=== PATIENT | female | born 1975 | race Caucasian/White ===

== ENCOUNTER 2020-09-13 16:58 | Emergency (ER) | payer SELFPAY ==
[2020-09-13 17:04] VITALS: BP 143/83; PULSE 101; RESP 16; TEMP 36.9; O2SAT 100
--- NOTE | 2020-09-13 17:10 | ED.URI ---
HPI - URI/Sore Throat General Chief Complaint: Upper Respiratory Infection Stated Complaint: cough swollen throat aches Time Seen by Provider: 09/13/20 17:11 Source: patient and RN notes reviewed History of Present Illness HPI Narrative: Patient is a 45-year-old female who presents to the urgent care with complaints of a sore throat since Wednesday. Patient states her symptoms have exacerbated with body aches, swollen tonsils, headache and left ear pain. States that she has had 2 rapid Covid's this week due to working in the [employer] and both were negative. Patient denies of any known fever, nausea, vomiting. States that she has been using ibuprofen and Chloraseptic spray as well as taking an old dose of doxycycline that she had at home. No other acute complaints. No acute distress noted. Patient aware of the plan of care. Some parts of this dictation were generated by voice recognition software and may contain typographical and/or grammatical inaccuracies. Related Data Home Medications Medication Instructions Recorded Confirmed cetirizine [Zyrtec] 10 mg PO DAILY 09/13/20 09/13/20 citalopram 40 mg PO DAILY 09/13/20 09/13/20 Allergies Allergy/AdvReac Type Severity Reaction Status Date / Time Cephalosporins Allergy Unknown Unknown Verified 09/13/20 17:12 levofloxacin Allergy Unknown Chest Pain Verified 09/13/20 17:12 Penicillins Allergy Unknown Unknown Verified 09/13/20 17:12 Review of Systems Review of Systems: Narrative: CONSTITUTIONAL: Reports of fever, chills EYES: Denies visual changes, redness, or discharge. ENT: Reports of severe sore throat and swollen tonsils CARDIOVASCULAR: Denies chest pain, palpitations, or edema. RESPIRATORY: Denies cough or dyspnea. GASTROINTESTINAL: Denies abdominal pain, nausea, vomiting, or diarrhea. GENITOURINARY: Denies dysuria or hematuria. SKIN: Denies rash or itching. MUSCULOSKELETAL: Denies back pain, joint pain. Reports of body aches NEUROLOGIC: Reports of headache All other systems reviewed are negative, except as documented in HPI. PMFSH Comments At the time of my signature, I reviewed and agree with the nursing past medical, surgical, social, and family history. There is no relevant family history pertinent to the patient complaint. Exam Narrative: Exam Narrative: GENERAL: This is a well-nourished, well-developed patient, in no apparent distress. HEAD: normocephalic, atraumatic. EYES: PERRL. Sclera clear/white. Vision is grossly intact. EARS: External ears normal, auditory canals clear and without drainage, TMs normal without perforation. Hearing grossly intact. NOSE: External nose normal with no obvious nasal discharge, nares without redness, no rhinorrhea. THROAT: Mucous membranes moist, moderate erythema noted to posterior oropharynx with moderate bilateral tonsillar edema with bilateral exudate. Moderate postnasal drainage. NECK: Neck supple, moderate tender bilateral submandibular lymphadenopathy CARDIOVASCULAR: Regular rate and rhythm without murmurs, gallops, or rubs. RESPIRATORY: Clear to auscultation. Breath sounds equal bilaterally. No wheezes, rales, or rhonchi. SKIN: warm, intact with no suspicious lesions or rash, good texture and turgor. NEURO: awake, alert, and oriented to person, place and time. There were no obvious focal neurologic abnormalities. EXTREMITIES: No clubbing, cyanosis, or edema. Course Vital Signs Vital signs: Vital Signs Temperature 98.5 F 09/13/20 17:04 Pulse Rate 101 H 09/13/20 17:04 Respiratory Rate 16 09/13/20 17:04 Blood Pressure 143/83 H 09/13/20 17:04 Pulse Oximetry 100 09/13/20 17:04 Temperature 98.5 F 09/13/20 17:13 Pulse Rate 101 H 09/13/20 17:13 Respiratory Rate 16 09/13/20 17:13 Blood Pressure 143/83 H 09/13/20 17:13 Pulse Oximetry 100 09/13/20 17:13 Reviewed-patient is informed that they may have pre-hypertension or hypertension based on a blood pressure reading in the department. I rec
[2020-09-13 17:13] VITALS: BP 143/83; PULSE 101; RESP 16; TEMP 36.9; O2SAT 100
== END 2020-09-13 17:35 | disposition home or self-care (01) ==
PROVIDERS: Emergency Provider Nurse Practitioner Family; PCP Internal Medicine
DX: J02.0 Streptococcal pharyngitis (principal); Z95.2 Presence of prosthetic heart valve; J45.909 Unspecified asthma, uncomplicated; F41.9 Anxiety disorder, unspecified
CPT/HCPCS: 87880; 99213; G0463

== ENCOUNTER 2022-02-20 15:01 | Emergency (ER) | payer SELFPAY ==
[2022-02-20 15:07] VITALS: BP 133/66; PULSE 88; RESP 18; TEMP 36.9; O2SAT 99
--- NOTE | 2022-02-20 15:40 | ED.URI ---
HPI - URI/Sore Throat General Chief Complaint: Upper Respiratory Infection Stated Complaint: Sore Throat Time Seen by Provider: 02/20/22 15:25 Source: patient, RN notes reviewed and old records reviewed Mode of arrival: ambulatory Limitations: no limitations History of Present Illness HPI Narrative: 46-year-old female who presents to [facility] with complaints of2-3 days of recurrent sore throat, cough, nasal congestion,headaches, some body aches with no known fevers. Patient reports that she does have history of strep throat. Patient states that she has noted her tonsils to be red and swollen and with increase pain with swallowing, has taken Tylenol and Ibuprofen for her discomfort.Patient reports that she has had COVID vaccinations and also had flu hot this season. MD elicited complaint: cough, sore throat, rhinorrhea and nasal congestion Pertinent past history: pneumonia, sinusitis, asthma and other (strep throat) Onset (ago): day(s) (2-3) Consistency: progressively worsening Severity: moderate Pain scale (0-10): 6 Description of mucous: clear Able to tolerate fluids by mouth: Yes Exacerbating factors: swallowing Treatments prior to arrival: acetaminophen and ibuprofen Related Data Allergies Allergy/AdvReac Type Severity Reaction Status Date / Time Cephalosporins Allergy Unknown Unknown Verified 02/20/22 15:23 levofloxacin Allergy Unknown Chest Pain Verified 02/20/22 15:23 Penicillins Allergy Unknown Unknown Verified 02/20/22 15:23 Review of Systems Review of Systems: CONSTITUTIONAL: Denies fever, chills, or sweats. EYES: Denies visual changes, redness, or discharge. ENT: Positive for rhinorrhea, congestion, positive for sore throat, no otalgia. CARDIOVASCULAR: Denies chest pain, palpitations, or edema. RESPIRATORY:Positive for cough denies dyspnea. GASTROINTESTINAL: Denies abdominal pain, nausea, vomiting, or diarrhea. GENITOURINARY: Denies dysuria or hematuria. SKIN: Denies rash or itching. MUSCULOSKELETAL: Denies back pain, joint pain, or myalgia. NEUROLOGIC: Positive for headache,no numbness, or weakness. PSYCHIATRIC: Denies anxiety or depression. All systems reviewed & are unremarkable except as noted in HPI and below PMFSH Past Medical History Medical History (Updated 02/22/22 @ 22:22 by Farida Aden NP) Asthma Bronchitis Intraductal papilloma of right breast excision Pneumonia Sinusitis Surgical History Surgical History (Updated 02/22/22 @ 22:23 by Farida Aden NP) H/O left knee surgery History of aortic valve replacement Hx of right knee surgery Previous section Social History Social History (Updated 02/22/22 @ 22:23 by Farida Aden NP) Smoking packs per day: 1 Smoking cigarettes per day: 20.0 Years smoked: 10 Smoking pack-years: 10.00 Smoking status: Current every day smoker Alcohol intake: current Alcohol use details: social Substance use type: does not use Gender identity (if verbalized by the patient): Female Comments At time of signature, agree with nursing past medical, surgical, social and family history. There is no relevant family history pertinent to the presenting complaint Exam Narrative: GENERAL: Well-appearing, well-nourished, and in no acute distress. HEAD: Normocephalic, atraumatic. EYES: PERRLA and EOMI. ENT: Nares red with clear rhinorrhea no epistaxis. Mucous membranes moist. TMs normal with good light reflex, throat red with tonsils swollen and red with uvula swollen but midline NECK: Supple. Lymphadenopathy CHEST: Clear to auscultation. No respiratory distress. SaO2 99% on room air no tachypnea. HEART: Regular rate and rhythm. No murmur heard. Normal peripheral pulses. ABDOMEN: Soft, nontender, nondistended, normal active bowel sounds. EXTREMITIES: Normal range of motion. No edema. SKIN: Warm, dry, no rash. NEURO: No focal deficits. Alert and oriented x3. Course Course Level of Care: Express Care Visit Vital Signs Keily
== END 2022-02-20 16:05 | disposition home or self-care (01) ==
PROVIDERS: Emergency Provider Registered Nurse; PCP Internal Medicine
DX: J02.0 Streptococcal pharyngitis (principal); F17.210 Nicotine dependence, cigarettes, uncomplicated
CPT/HCPCS: 87804; 87880; 99213; G0463

== ENCOUNTER 2022-03-06 19:15 | Emergency (ER) | payer SELFPAY ==
--- NOTE | ~2022-03-06 | XR_ITS ---
EXAMINATION: XR wrist RT min 3V DATE: 03/06/2022 19:51 INDICATION: Right wrist pain. Fall. TECHNIQUE: 4 views of right wrist were obtained. COMPARISON: None. FINDINGS: Bone alignment is normal. No fracture. 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 IMPRESSION: 1. No fracture. Reviewed, dictated and finalized at location A. IMPRESSION: 1. No fracture.
[2022-03-06 19:20] VITALS: BP 138/84; PULSE 87; RESP 20; TEMP 37.1; O2SAT 100
--- NOTE | 2022-03-06 20:17 | ED.UPPEXIN ---
HPI - Extremity Injury (Upper) General Chief Complaint: Extremity Injury, Upper Stated Complaint: right wrist injury Time Seen by Provider: 03/06/22 20:10 Source: patient, RN notes reviewed and old records reviewed Mode of arrival: ambulatory Limitations: no limitations History of Present Illness HPI narrative: 46 year old female who presents to [facility] care with complaint os hitting her right wrist about a week ago and then yesterday she fell down 4 carpeted steps hitting her right wrist on the wall and step. She voices pain to the ulnar dorsal aspect of her right wrist with some swelling noted. Patient reports that she has been applying ice and has taken some Ibuprofen for her discomfort. She states that her pain is 7/10 is sharp and aching. Patient is right hand dominant. MD complaint: injury to: right and wrist Onset (ago): day(s) (injury yesterday) Other Extremity Injury: Right: wrist (dorsal ulnar aspect) Other injuries: none Handedness: right Place: home Severity: moderate Severity scale (1-10): 7 Context: fall and direct blow Associated symptoms: denies other symptoms Treatments prior to arrival: cold therapy and NSAIDS Related Data Home Medications Medication Instructions Recorded Confirmed citalopram [Celexa] 40 mg PO DAILY 03/06/22 03/06/22 Allergies Allergy/AdvReac Type Severity Reaction Status Date / Time Cephalosporins Allergy Unknown Unknown Verified 03/06/22 19:27 levofloxacin Allergy Unknown Chest Pain Verified 03/06/22 19:27 Penicillins Allergy Unknown Unknown Verified 03/06/22 19:27 Review of Systems Review of Systems: CONSTITUTIONAL: Denies fever, chills, or sweats. EYES: Denies visual changes, redness, or discharge. ENT: Denies rhinorrhea, congestion, sore throat, or otalgia. CARDIOVASCULAR: Denies chest pain, palpitations, or edema. RESPIRATORY: Denies cough or dyspnea. GASTROINTESTINAL: Denies abdominal pain, nausea, vomiting, or diarrhea. GENITOURINARY: Denies dysuria or hematuria. SKIN: Denies rash or itching. MUSCULOSKELETAL: Denies back pain,positive for right wrist pain, or myalgia. NEUROLOGIC: Denies headache, numbness, or weakness. PSYCHIATRIC:Positive for history of anxiety or depression. All systems reviewed & are unremarkable except as noted in HPI and below [facility] Past Medical History Medical History Asthma Bronchitis Intraductal papilloma of right breast excision Pneumonia Sinusitis Surgical History Surgical History H/O left knee surgery History of aortic valve replacement Hx of right knee surgery Previous section Social History Social History Smoking packs per day: 1 Smoking cigarettes per day: 20.0 Years smoked: 10 Smoking pack-years: 10.00 Smoking status: Current every day smoker Alcohol intake: current Alcohol use details: social Substance use type: does not use Gender identity (if verbalized by the patient): Female Comments At time of signature agree with nursing documentation of past medical, surgical, sociual and family history. There is no persistent family history relevant to presenting complaint Exam Narrative: GENERAL: Well-appearing, well-nourished, and in no acute distress. HEAD: Normocephalic, atraumatic. EYES: PERRLA and EOMI. ENT: Nares clear, no rhinorrhea or epistaxis. Mucous membranes moist.TM's normal with good light reflex, throat pink with no tonsil swelling. NECK: Supple.no lymphadenopathy CHEST: Clear to auscultation. No respiratory distress.no tachypnea SAO2 100% on room air. HEART: Regular rate and rhythm. No murmur heard. Normal peripheral pulses. ABDOMEN: Soft, nontender, nondistended, normal active bowel sounds. EXTREMITIES: Normal range of motion mild edema to dorsal ulnar aspect of right wrist, circulation and sensation intact to right hand and wrist,
== END 2022-03-06 20:27 | disposition home or self-care (01) ==
PROVIDERS: Emergency Provider Registered Nurse; PCP Internal Medicine
DX: S63.501A Unspecified sprain of right wrist, initial encounter (principal); S66.911A Strain of unspecified muscle, fascia and tendon at wrist and hand level, right hand, initial encounter; W10.9XXA Fall (on) (from) unspecified stairs and steps, initial encounter; J45.909 Unspecified asthma, uncomplicated; Z95.2 Presence of prosthetic heart valve; F17.210 Nicotine dependence, cigarettes, uncomplicated
CPT/HCPCS: 73110; 99213; G0463

== ENCOUNTER 2022-08-03 10:31 | Emergency (ER) | payer SELFPAY ==
[2022-08-03 10:36] VITALS: BP 141/92; PULSE 86; RESP 14; TEMP 36.8; O2SAT 100
--- NOTE | 2022-08-03 10:45 | ED.SKABFB ---
HPI - Skin/Abscess/Foreign Bdy General Chief complaint: Skin/Abscess/Foreign Body Stated complaint: recvurrent breast abcess Time Seen by Provider: 08/03/22 10:35 Source: patient and RN notes reviewed History of Present Illness HPI narrative: Patient is a 46-year-old female presents the urgent care with complaints of recurrent abscess in the right breast. Patient states its been at least 1 year and this episode started on Wednesday. Patient states that she has had an MRI, ultrasounds and biopsies that have all been clear. However she states that her mom of endometrial cancer and her cousin had breast cancer. Patient has not been tested for the BRCA gene. States that she does plan to call her RESIDENT CARE COORDINATOR/nurse practitioner and asked for referral to a breast specialist. Patient states that she has had no fevers however she has been taking Tylenol and ibuprofen. No other acute complaints. No acute distress noted. Patient read the plan of care. Some parts of this dictation were generated by voice recognition software and may contain typographical and/or grammatical inaccuracies. Related Data Home Medications Medication Instructions Recorded Confirmed cetirizine 10 mg tablet (Zyrtec) 10 mg PO DAILY 08/03/22 08/03/22 Allergies Allergy/AdvReac Type Severity Reaction Status Date / Time Cephalosporins Allergy Unknown Vomiting Verified 08/03/22 10:45 levofloxacin Allergy Unknown Chest Pain Verified 08/03/22 10:45 Penicillins Allergy Unknown Hives Verified 08/03/22 10:45 Review of Systems Review of Systems: CONSTITUTIONAL: Denies fever, chills, or sweats. EYES: Denies visual changes, redness, or discharge. ENT: Denies rhinorrhea, congestion, sore throat, or otalgia. CARDIOVASCULAR: Denies chest pain, palpitations, or edema. RESPIRATORY: Denies cough or dyspnea. GASTROINTESTINAL: Denies abdominal pain, nausea, vomiting, or diarrhea. GENITOURINARY: Denies dysuria or hematuria. SKIN: Reports of abscess to the right breast MUSCULOSKELETAL: Denies back pain, joint pain, or myalgia. NEUROLOGIC: Denies headache, numbness, or weakness. All other systems reviewed are negative, except as documented in HPI. [facility] Past Medical History Medical History Asthma Bronchitis Intraductal papilloma of right breast excision Pneumonia Sinusitis Surgical History Surgical History H/O left knee surgery History of aortic valve replacement Hx of right knee surgery Previous section Social History Social History Smoking packs per day: 1 Smoking cigarettes per day: 20.0 Years smoked: 10 Smoking pack-years: 10.00 Smoking status: Current every day smoker Alcohol intake: current Alcohol use details: social Substance use type: does not use Gender identity (if verbalized by the patient): Female Comments At the time of my signature, I reviewed and agree with the nursing past medical, surgical, social, and family history. There is no relevant family history pertinent to the patient complaint. Exam Narrative: GENERAL: This is a well-nourished, well-developed patient, in no apparent distress. HEAD: normocephalic, atraumatic. EYES: PERRL. Sclera clear/white. Vision is grossly intact. EARS: External ears normal NOSE: External nose normal with no obvious nasal discharge, nares without redness, no rhinorrhea. THROAT: Mucous membranes moist NECK: Neck supple SKIN: 8 x 5cm erythema surrounding a firm 3 cm abscess at 7:00 to the right nipple on the lateral aspect., Tender without notable drainage NEURO: awake, alert, and oriented to person, place and time. There were no obvious focal neurologic abnormalities. EXTREMITIES: No clubbing, cyanosis, or edema. Course Course Level of Care: Express Care Visit Vital Signs Vital signs: Vital Signs Temperature 98.2 F
== END 2022-08-03 11:02 | disposition home or self-care (01) ==
PROVIDERS: Emergency Provider Nurse Practitioner Family; PCP Internal Medicine
DX: N61.1 Abscess of the breast and nipple (principal); F17.210 Nicotine dependence, cigarettes, uncomplicated; J45.909 Unspecified asthma, uncomplicated; Z95.2 Presence of prosthetic heart valve
CPT/HCPCS: 99213; G0463

== ENCOUNTER 2022-10-12 08:24 | Emergency (ER) | payer SELFPAY ==
[2022-10-12 08:28] VITALS: BP 119/79; PULSE 80; RESP 20; TEMP 36.9; O2SAT 100
--- NOTE | 2022-10-12 08:54 | ED.URI ---
HPI - URI/Sore Throat General Chief Complaint: Upper Respiratory Infection Stated Complaint: cold flu Time Seen by Provider: 10/12/22 08:50 Source: patient, RN notes reviewed and old records reviewed Mode of arrival: ambulatory Limitations: no limitations History of Present Illness HPI Narrative: 47-year-old female who presents to Express Care with complaints of cough with congestion. body aches,headache and chills since yesterday and also sore throat. Patient states she has taken some cold and cough medications OTC and also some ibuprofen for her symptoms. Patient has respiratory congestion which is dry and productive and has noted wheezing. Patient does have inhaler at home but has not used for her symptoms. patient states that she needs work note. MD elicited complaint: cough, sore throat and other (Body ache, headache, and chills) Pertinent past history: pneumonia, asthma and other (tobacco use) Onset (ago): day(s) (1) Pain scale (0-10): 8 Able to tolerate fluids by mouth: Yes Treatments prior to arrival: ibuprofen and cold medicine Related Data Home Medications Medication Instructions Recorded Confirmed cetirizine 10 mg tablet (Zyrtec) 10 mg PO DAILY 08/03/22 10/12/22 Allergies Allergy/AdvReac Type Severity Reaction Status Date / Time Penicillins Allergy Unknown Unknown Verified 10/12/22 08:47 Cephalosporins AdvReac Unknown Vomiting Verified 10/12/22 08:47 levofloxacin AdvReac Unknown Chest Pain Verified 10/12/22 08:47 Review of Systems Review of Systems: CONSTITUTIONAL: Reports malaise, chills, sweats, no fever. EYES: Denies visual changes, redness, or discharge. ENT: Reports rhinorrhea, congestion, sinus pain, no otalgia, positive sore throat. CARDIOVASCULAR: Denies chest pain, palpitations, or edema. RESPIRATORY: Reports cough which is dry and productive.? Denies dyspnea. GASTROINTESTINAL: Denies abdominal pain, nausea, vomiting, diarrhea SKIN: Denies rash or itching. MUSCULOSKELETAL: Reports myalgia. NEUROLOGIC: Reports headache. All systems reviewed & are unremarkable except as noted in HPI and below PMFSH Past Medical History Medical History Asthma Bronchitis Intraductal papilloma of right breast excision Pneumonia Sinusitis Surgical History Surgical History H/O left knee surgery History of aortic valve replacement Hx of right knee surgery Previous section Social History Social History Smoking packs per day: 1 Smoking cigarettes per day: 20.0 Years smoked: 10 Smoking pack-years: 10.00 Smoking status: Current every day smoker Alcohol intake: current Alcohol use details: social Substance use type: does not use Gender identity (if verbalized by the patient): Female Comments At time of signature, agree with nursing past medical, surgical, social and family history. There is no relevant family history pertinent to the presenting complaint Exam Narrative: GENERAL: Well-appearing, well-nourished, and in no acute distress. HEAD: Normocephalic EYES: PERRLA, conjunctivae clear ENT: Nares clear, turbinates edematous and erythematous, clear discharge. Mucous membranes moist. TM pearly tate with dull light reflex bilaterally; no tragal tenderness. Oropharynx erythematous without lesions. Tonsils enlarged and without exudate, no drooling, no hoarseness, no trismus, uvula midline.post nasal drainage present NECK: Supple. lymphadenopathy CHEST: Scattered wheezing, breath sounds equal.scattered wheezing,no rhonchi, rales, or stridor. No respiratory distress, speaks in full sentences.brky and loose sounding cough noted with SAO2 100% on room air HEART: Regular rate and rhythm. No murmur heard. SKIN: Warm, dry, no rash. NEURO: Alert and oriented x3. PSYCH: Normal mood and affect Cou
== END 2022-10-12 09:10 | disposition home or self-care (01) ==
PROVIDERS: Emergency Provider Registered Nurse; PCP Internal Medicine
DX: J40 Bronchitis, not specified as acute or chronic (principal); J06.9 Acute upper respiratory infection, unspecified; F17.210 Nicotine dependence, cigarettes, uncomplicated; J45.909 Unspecified asthma, uncomplicated; Z95.2 Presence of prosthetic heart valve
CPT/HCPCS: 87804; 99213; G0463

== ENCOUNTER 2023-01-19 13:44 | Emergency (ER) | payer SELFPAY ==
--- NOTE | ~2023-01-19 | XR_ITS ---
XR chest 2V 01/19/2023 14:48 Indication: Cough and congestion Procedure: 2 view chest Comparison: 07/30/2019 Findings: Status post median sternotomy for CABG. Mild cardiomegaly. No focal air space disease, pulm onary edema, pleural effusion or suspected pneumothorax. Impression: 1: No acute cardiopulmonary disease. Reviewed, dictated and finalized at location A. Impression: 1: No acute cardiopulmonary disease.
[2023-01-19 13:52] VITALS: BP 106/66; PULSE 87; RESP 16; TEMP 36.8; O2SAT 99
[2023-01-19] MEDS: methylPREDNISolone SOD SUCC 125 MG VIAL IM (14:51)
[2023-01-19] MEDS: ALBUTEROL SULFATE NEB 2.5 MG/3 ML INH INHALATION (14:52)
[2023-01-19] MEDS: IPRATROPIUM BR 0.02% INH SOLN 0.5 MG/2.5 ML VIAL INHALATION (14:52)
--- NOTE | 2023-01-19 15:00 | ED.GENADULT ---
HPI - General Adult General Chief complaint: Upper Respiratory Infection Stated complaint: Chest Congestion/Cough Source: patient Mode of arrival: ambulatory Limitations: no limitations History of Present Illness HPI narrative: PATIENT PRESENTS FOR EVALUATION OF RESPIRATORY SYMPTOMS FOR LAST 2-3 DAYS. SYMPTOMS INCLUDE PRODUCTIVE COUGH OF YELLOW SPUTUM, DYSPNEA ON EXERTION AND WHEEZING. SHE REPORTS A BURNING SENSATION IN HER CHEST. SHE HAS AN UNDERLYING HISTORY OF ASTHMA. SHE SMOKES 1 PPD. NO NAUSEA, VOMITING OR DIARRHEA. SHE IS NOT TAKING ANY MEDICATION TO ASSIST WITH HER SYMPTOMS. SHE STATES SHE HAS A HX OF RECURRENT BRONCHITIS. Related Data Home Medications Medication Instructions Recorded Confirmed cetirizine 10 mg tablet (Zyrtec) 10 mg PO DAILY 08/03/22 10/12/22 Allergies Allergy/AdvReac Type Severity Reaction Status Date / Time Penicillins Allergy Unknown Unknown Verified 10/12/22 08:47 Cephalosporins AdvReac Unknown Vomiting Verified 10/12/22 08:47 levofloxacin AdvReac Unknown Chest Pain Verified 10/12/22 08:47 Review of Systems Review of Systems: CONSTITUTIONAL: DENIES FEVER, CHILLS, OR SWEATS. EYES: DENIES VISUAL CHANGES, REDNESS, OR DISCHARGE. ENT: DENIES RHINORRHEA, CONGESTION, SORE THROAT, OR OTALGIA. CARDIOVASCULAR: DENIES CHEST PAIN, PALPITATIONS, OR EDEMA. RESPIRATORY: REPORTS COUGH, WHEEZING, [place]IN[place]G AND BURNING SENSATION IN HER CHEST GASTROINTESTINAL: DENIES ABDOMINAL PAIN, NAUSEA, VOMITING, OR DIARRHEA. GENITOURINARY: DENIES DYSURIA OR HEMATURIA. SKIN: DENIES RASH OR ITCHING. MUSCULOSKELETAL: DENIES BACK PAIN, JOINT PAIN, OR MYALGIA. NEUROLOGIC: DENIES HEADACHE, NUMBNESS, DIZZINESS, OR WEAKNESS. PSYCHIATRIC: DENIES ANXIETY OR DEPRESSION. [facility] Past Medical History Medical History Asthma Bronchitis Intraductal papilloma of right breast excision Pneumonia Sinusitis Surgical History Surgical History H/O left knee surgery History of aortic valve replacement Hx of right knee surgery Previous section Family History Family History (Updated 01/19/23 @ 15:07 by SHAYY Dave, ROB) Mother Family history non-contributory Social History Social History Smoking packs per day: 1 Smoking cigarettes per day: 20.0 Years smoked: 10 Smoking pack-years: 10.00 Smoking status: Current every day smoker Alcohol intake: current Alcohol use details: social Substance use type: does not use Gender identity (if verbalized by the patient): Female Exam Narrative: GENERAL: WELL-APPEARING, WELL-NOURISHED, AND IN NO ACUTE DISTRESS. HEAD: NORMOCEPHALIC, ATRAUMATIC. EYES: PERRLA AND EOMI. ENT: NARES CLEAR, NO RHINORRHEA OR EPISTAXIS. MUCOUS MEMBRANES MOIST. OROPHARYNX WITHOUT TONSILLAR HYPERTROPHY EXUDATE OR OTHER LESIONS. BILATERAL TMS PEARLY [place] NONBULGING NECK: SUPPLE. NO ADENOPATHY OR MASSES. NO CAROTID BRUITS OR JVD CHEST: DIFFUSE INSPIRATORY AND EXPIRATORY WHEEZING BILATERALLY IN POSTERIOR LUNG OH. COUGH PRESENT ON EXAM. HEART: REGULAR RATE AND RHYTHM. NO MURMUR HEARD. NORMAL PERIPHERAL PULSES. ABDOMEN: SOFT, NONTENDER, NONDISTENDED, NORMAL ACTIVE BOWEL SOUNDS. EXTREMITIES: NORMAL RANGE OF MOTION. NO EDEMA. SKIN: WARM, DRY, NO RASH. NEURO: NO FOCAL DEFICITS. ALERT AND ORIENTED X3. PSYCH: NORMAL MOOD AND AFFECT. Course Course Emergency Course: THIS IS A 47-YEAR-OLD FEMALE WHO PRESENTED FOR EVALUATION OF RESPIRATORY SYMPTOMS. COVID AND INFLUENZA WERE NEGATIVE. CHEST X-RAY NORMAL. EXAM CONSISTENT WITH ASTHMA EXACERBATION SECONDARY TO VIRAL URI. GIVEN SOLU-MEDROL AND DUONEB WHILE HERE. WILL TREAT WITH PREDNISONE. AVOID SMOKING. INCREASE HYDRATION. FOLLOW UP WITH PRIMARY PROVIDER. GO TO THE ER FOR WORSENING SYMPTOMS. PATIENT IN AGREEMENT WITH PLAN OF CARE. Level of Care: [facility]
[2023-01-19 15:17] VITALS: PULSE 79; RESP 16; O2SAT 98
== END 2023-01-19 15:35 | disposition home or self-care (01) ==
PROVIDERS: Emergency Provider Nurse Practitioner; PCP Internal Medicine
DX: J06.9 Acute upper respiratory infection, unspecified (principal); J45.901 Unspecified asthma with (acute) exacerbation; F17.210 Nicotine dependence, cigarettes, uncomplicated
CPT/HCPCS: 71046; 87426; 87804; 94640; 96372; 99213; C9803; G0463; J2930

== ENCOUNTER 2023-01-27 09:27 | Emergency (ER) | payer SELFPAY ==
[2023-01-27 09:30] VITALS: BP 119/80; PULSE 93; RESP 18; TEMP 36.1; O2SAT 99
--- NOTE | 2023-01-27 09:34 | ED.URI ---
HPI - URI/Sore Throat General Chief Complaint: Upper Respiratory Infection <Lyssa Rivers APRN - Last Filed: 01/28/23 07:49> Stated Complaint: cough congestion <Lyssa Rivers APRN - Last Filed: 01/28/23 07:49> Time Seen by Provider: 01/27/23 09:34 <Lyssa Rivers APRN - Last Filed: 01/28/23 07:49> Source: patient, RN notes reviewed and old records reviewed <Lyssa Rivers APRN - Last Filed: 01/28/23 07:49> Mode of arrival: ambulatory <Lyssa Rivers APRN - Last Filed: 01/28/23 07:49> Limitations: no limitations <Lyssa Rivers APRN - Last Filed: 01/28/23 07:49> History of Present Illness HPI Narrative: 47-year-old female presents to the [facility] with complaints of cough and congestion. Was evaluated on January 19, 8 days ago and treated with prednisone. Patient is a smoker and has history of asthma Chest x-ray, flu and COVID were all negative last week. <Lyssa Rivers APRN - Last Filed: 01/28/23 07:49> Onset (ago): day(s) () <Lyssa Rivers APRN - Last Filed: 01/28/23 07:49> Related Data Home Medications: Home Medications Medication Instructions Recorded Confirmed cetirizine 10 mg tablet (Zyrtec) 10 mg PO DAILY 08/03/22 10/12/22 <Lyssa Rivers APRN - Last Filed: 01/28/23 07:49> Allergies/Adverse Reactions: Allergies Allergy/AdvReac Type Severity Reaction Status Date / Time Penicillins Allergy Unknown Unknown Verified 10/12/22 08:47 Cephalosporins AdvReac Unknown Vomiting Verified 10/12/22 08:47 levofloxacin AdvReac Unknown Chest Pain Verified 10/12/22 08:47 <Lyssa Rivers APRN - Last Filed: 01/28/23 07:49> Review of Systems Review of Systems: All systems reviewed & are unremarkable except as noted in HPI and below <Lyssa Rivers APRN - Last Filed: 01/28/23 07:49> Constitutional: Constitutional: Reports no additional constitutional complaints <Lyssa Rivers MAINTENANCE MILLWRIGHT - Last Filed: 01/28/23 07:49> Eyes: Eyes: Reports no additional eye complaints <Lyssa LauryKhadra Rivers, MAINTENANCE MILLWRIGHT - Last Filed: 01/28/23 07:49> ENT: Reports system reviewed and no additional complaints, except as documented <Lyssa Rivers, MAINTENANCE MILLWRIGHT - Last Filed: 01/28/23 07:49> Cardiovascular: Cardiovascular: Reports no additional cardiovascular complaints, Denies chest pain and Denies dyspnea <Lyssa Rivers, MAINTENANCE MILLWRIGHT - Last Filed: 01/28/23 07:49> Respiratory: Respiratory: Reports as per HPI, Reports chest congestion, Reports cough and Reports dyspnea <Lyssa Rivers, MAINTENANCE MILLWRIGHT - Last Filed: 01/28/23 07:49> Gastrointestinal: Gastrointestinal: Reports no additional gastrointestinal complaints, Denies abdominal pain, Denies nausea and Denies vomiting <Lyssa Rivers, MAINTENANCE MILLWRIGHT - Last Filed: 01/28/23 07:49> Musculoskeletal: Musculoskeletal: Reports no additional musculoskeletal complaints <Lyssa Rivers, MAINTENANCE MILLWRIGHT - Last Filed: 01/28/23 07:49> Integumentary/Breasts: Skin/Breast: Reports system reviewed and no additional complaints, except as docu <Lyssa Rivers, MAINTENANCE MILLWRIGHT - Last Filed: 01/28/23 07:49> Neurologic: Reports system reviewed and no additional complaints, except as documented <Lyssa Rivers, MAINTENANCE MILLWRIGHT - Last Filed: 01/28/23 07:49> Psychiatric: Psychiatric: Reports no additional psychiatric complaints <Lyssa Rivers MAINTENAN[employer] M[employer]WR[employer] - Last Filed: 01/28/23 07:49> Allergic/Immunologic: Allergic/Immunologic: Reports no additional allergic/immunologic complaints <Lyssa Rivers, MAINTENANCE MILLWRIGHT - Last Filed: 01/28/23 07:49> PMFSH Past Medical History Medical History: Medical History Asthma Bronchitis Intraductal papilloma of right breast excision Pneumonia Sinusitis <Lyssa Rivers MAINTENANCE MILLWRIGHT - Last Filed: 01/28/23 07:49> Surgical History Surgical History: Surgical History H/O left knee surgery History of aortic valve replacement Hx of right knee surgery Previous section <Ta
[2023-01-27] MEDS: predniSONE 20 MG TABLET 40 MG PO (09:42)
[2023-01-27] MEDS: ALBUTEROL SULFATE NEB 2.5 MG/3 ML INH INHALATION (09:43)
[2023-01-27] MEDS: IPRATROPIUM BR 0.02% INH SOLN 0.5 MG/2.5 ML VIAL INHALATION (09:43)
== END 2023-01-27 10:34 | disposition home or self-care (01) ==
PROVIDERS: Emergency Provider Nurse Practitioner Family; PCP Internal Medicine
DX: J45.901 Unspecified asthma with (acute) exacerbation (principal); F17.210 Nicotine dependence, cigarettes, uncomplicated
CPT/HCPCS: 99213; G0463; J7512

== ENCOUNTER 2023-06-18 17:05 | Emergency (ER) | payer MEDICAID, SELFPAY ==
[2023-06-18 17:14] VITALS: BP 123/74; PULSE 99; RESP 18; TEMP 36.6; O2SAT 98
--- NOTE | 2023-06-18 17:15 | ED.GENADULT ---
HPI - General Adult General Chief complaint: Upper Respiratory Infection Stated complaint: Cough,Congestion,Shortness of Breath Time Seen by Provider: 06/18/23 17:15 Source: patient, RN notes reviewed and old records reviewed Mode of arrival: ambulatory Limitations: no limitations History of Present Illness HPI narrative: 47-year-old female presents to the [facility] with complaints of cough, congestion and shortness of breath. Since yesterday. Patient states that she has been running low on her Lasix and has not been taking the dose as a prescribed. States she has been cutting it in half. Reports increased edema. Patient denies any fevers. No nausea or vomiting. Patient denies chest pain Patient is a smoker Related Data Home Medications Medication Instructions Recorded Confirmed cetirizine 10 mg tablet (Zyrtec) 10 mg PO DAILY 08/03/22 06/18/23 furosemide 80 mg tablet 80 mg PO BID 06/18/23 06/18/23 metoprolol tartrate 50 mg tablet 50 mg PO BID 06/18/23 06/18/23 potassium chloride 20 mEq 40 meq PO DAILY 06/18/23 06/18/23 tablet,extended release(part/cryst) Allergies Allergy/AdvReac Type Severity Reaction Status Date / Time levofloxacin Allergy Severe Chest Pain Verified 06/18/23 17:12 Cephalosporins AdvReac Intermediate Nausea and Verified 06/18/23 17:12 Vomiting Penicillins AdvReac Intermediate Gastrointestinal Verified 06/18/23 17:12 Upset Review of Systems Review of Systems: All systems reviewed & are unremarkable except as noted in HPI and below Constitutional: Constitutional: Reports no additional constitutional complaints Eyes: Eyes: Reports no additional eye complaints ENT: Reports system reviewed and no additional complaints, except as documented Cardiovascular: Cardiovascular: Reports as per HPI, Denies chest pain, Reports leg edema and Reports dyspnea Respiratory: Respiratory: Reports as per HPI, Denies chest congestion, Reports cough and Reports dyspnea Gastrointestinal: Gastrointestinal: Reports no additional gastrointestinal complaints, Denies abdominal pain, Denies nausea and Denies vomiting Musculoskeletal: Musculoskeletal: Reports no additional musculoskeletal complaints Integumentary/Breasts: Skin/Breast: Reports system reviewed and no additional complaints, except as docu Neurologic: Reports system reviewed and no additional complaints, except as documented Psychiatric: Psychiatric: Reports no additional psychiatric complaints Allergic/Immunologic: Allergic/Immunologic: Reports no additional allergic/immunologic complaints PMFSH Past Medical History Medical History Asthma Bronchitis Intraductal papilloma of right breast excision Pneumonia Sinusitis Surgical History Surgical History H/O left knee surgery History of aortic valve replacement Hx of right knee surgery Previous section Family History Family History Mother Family history non-contributory Social History Social History Smoking packs per day: 1 Smoking cigarettes per day: 20.0 Years smoked: 10 Smoking pack-years: 10.00 Smoking status: Current every day smoker Alcohol intake: current Alcohol use details: social Substance use type: does not use Gender identity (if verbalized by the patient): Female Comments At the time of my signature, I reviewed and agree with the nursing past medical, surgical, social, and family history. There is no relevant family history pertinent to the patient complaint. Exam Const: General: cooperative, healthy appearing, well developed, alert, uncomfortable, well groomed, well nourished and edematous Nutritional Appearance: well nourished and obese Orientation/consciousness: patient oriented x3 Limitations: no limitations HEN
== END 2023-06-18 17:31 | disposition short-term general hospital (02) ==
LOC: EXPTROY 17:08
PROVIDERS: Emergency Provider Nurse Practitioner; PCP Internal Medicine
DX: R60.0 Localized edema (principal); R05.9 Cough, unspecified; R06.02 Shortness of breath; R60.9 Edema, unspecified; J45.909 Unspecified asthma, uncomplicated; F17.210 Nicotine dependence, cigarettes, uncomplicated
CPT/HCPCS: 99212; G0463

== ENCOUNTER 2023-08-05 10:01 | Emergency (ER) | payer BC, SELFPAY ==
[2023-08-05] VITALS (27 sets, daily range): BP systolic 112–142; BP diastolic 61–84; PULSE 69–89; RESP 13–27; TEMP 36.7; O2SAT 94–100
[2023-08-05] MEDS: ONDANSETRON INJ 4 MG/2 ML VIAL IV PUSH (10:51)
[2023-08-05 10:57] LABS: Basophils Absolute Auto 0.1 K/mm3 (0.0-0.1); Eosinophils Absolute Auto 0.2 K/mm3 (0-0.3); Eosinophils Percent Auto 2.1 % (0-4.4); Hematocrit 40.8 % (37.0-47.0); Hemoglobin 13.1 g/dL (12.0-15.0); Immature Granulocyte Absolute 0.02 K/mm3 (0.00-0.031); Immature Granulocyte Percent A 0.2 % (0-0.5); Lymphocytes Percent Auto 26.2 % (18.3-44.2); Mean Corpuscular HGB Conc 32.1 g/dl (32-36); Mean Corpuscular Hemoglobin 31.6 pg (26-34); Mean Corpuscular Volume 98.6 fl (80-100); Mean Platelet Volume 10.7 fl (7.4-10.4); Monocytes Absolute Auto 0.6 K/mm3 (0.1-0.6); Neutrophils Absolute Auto 5.3 K/mm3 (1.3-6.7); Neutrophils Percent Auto 63.5 % (45.5-73.1); Platelet Count Result 288 k/mm3 (150-375); Red Blood Count 4.14 M/mm3 (4.2-5.4); Red Cell Distribution Width 15.3 % (11.5-14.5); White Blood Count 8.4 K/mm3 (4.5-10.0)
[2023-08-05 11:15] LABS: Alanine Aminotransferase 18 U/L (6-35); Albumin Level 3.7 g/dL (3.5-5.1); Alkaline Phosphatase 57 U/L (38-126); Anion Gap 11 mmol/L (8-16); Aspartate Amino Transferase 24 U/L (14-36); Blood Urea Nitrogen 11 mg/dL (7-17); Carbon Dioxide 27 mmol/L (22-30); Chloride 97 mmol/L (98-107); Estimated CRCL calculation 114 ml/min; Estimated Glomerular Filt Rate > 60; Glucose 191 mg/dL (65-110); Potassium 2.8 mmol/L (3.4-5.0); Sodium 135 mmol/L (137-145)
--- NOTE | 2023-08-05 11:22 | ECG_ITS ---
Measurements Intervals [place] Rate: 74 P: 54 LA: 152 QRS: -23 QRSD: 104 T: 21 QT: 434 QTc: 482 Interpretive Statements SINUS RHYTHM LEFT VENTRICULAR HYPERTROPHY AND ST-T CHANGE [VOLTAGE CRITERIA PLUS ST/T ABNORMALITY] POSSIBLE ANTERIOR MYOCARDIAL INFARCTION , PROBABLY OLD [30 ms Q WAVE IN V3/V4, OR R < 0.2 mV IN V4] ABNORMAL ECG COMPARED TO ECG 07/30/2019 14:04:03 LEFT VENTRICULAR HYPERTROPHY NOW PRESENT ST (T WAVE) DEVIATION NOW PRESENT Electronically Signed On 08-05-2023 13:33:17 CDT by Pepito Soriano M.D.
[2023-08-05] MEDS: POTASSIUM CHLORIDE 20 MEQ PACKET (FOR LIQUID) 40 MEQ PO (11:27)
[2023-08-05] MEDS: MAGNESIUM SULF 2 GM/WATER 50ML 2 GM/50 ML BAG IVPB (11:27)
[2023-08-05 11:34] LABS: Magnesium 1.6 mg/dL (1.6-2.3)
[2023-08-05] MEDS: POTASSIUM CHLORIDE INJ 40 MEQ in SODIUM CHLORIDE 0.9% IV 500 ML 130 MEQ IVPB (11:45)
--- NOTE | 2023-08-05 11:46 | ED.GENADULT ---
HPI - General Adult General Chief complaint: Neuro Symptoms/Deficit Stated complaint: NEURO Time Seen by Provider: 08/05/23 11:19 History of Present Illness HPI narrative: Patient is a 47-year-old female who presents to the emergency department this morning complaining of numbness and tingling in her bilateral upper and lower extremity, perioral numbness and tingling and eyelid twitching. She is also complaining of bilateral upper and lower extremity muscle cramps and generalized weakness. Patient admits that she takes 80 mg of Lasix daily and due to this she is on oral potassium but she admits that she does not take it as prescribed as it is difficult for her to keep it down. Patient denies any chest pain, shortness of breath, nausea, vomiting, abdominal pain, dysuria, hematuria, constipation, diarrhea, melena, hematochezia, fevers or chills. She also denies any headaches, dizziness, lightheadedness, blurry visions, dizziness or any focal weakness. There are no other modifying, alleviating, or precipitating factors at this time. Related Data Home Medications Medication Instructions Recorded Confirmed cetirizine 10 mg tablet (Zyrtec) 10 mg PO DAILY 08/03/22 06/18/23 furosemide 80 mg tablet 80 mg PO BID 06/18/23 06/18/23 metoprolol tartrate 50 mg tablet 50 mg PO BID 06/18/23 06/18/23 potassium chloride 20 mEq 40 meq PO DAILY 06/18/23 06/18/23 tablet,extended release(part/cryst) Allergies Allergy/AdvReac Type Severity Reaction Status Date / Time levofloxacin Allergy Severe Chest Pain Verified 08/05/23 10:10 Cephalosporins AdvReac Intermediate Nausea and Verified 08/05/23 10:10 Vomiting Penicillins AdvReac Intermediate Gastrointestinal Verified 08/05/23 10:10 Upset Review of Systems Review of Systems: All systems are reviewed and are negative unless stated otherwise in the HPI. [facility] Past Medical History Medical History Asthma Bronchitis Intraductal papilloma of right breast excision Pneumonia Sinusitis Surgical History Surgical History H/O left knee surgery History of aortic valve replacement Hx of right knee surgery Previous section Family History Family History Mother Family history non-contributory Social History Social History Smoking packs per day: 1 Smoking cigarettes per day: 20.0 Years smoked: 10 Smoking pack-years: 10.00 Smoking status: Current every day smoker Alcohol intake: current Alcohol use details: social Substance use type: does not use Gender identity (if verbalized by the patient): Female Exam Narrative: General: Alert, awake, afebrile, in no acute distress. HEENT: PERRL, no rhinorrhea, no post nasal drip, oropharynx clear. Neck: Trachea midline, no JVD, no lymphadenopathy. Cardiovascular: Regular rate and rhythm, no murmurs, rubs or gallops, no peripheral edema. Respiratory: Clear to auscultation bilaterally, no tachypnea, no wheezing, no rhonchi, no rubs, no respiratory distress. Abdomen: Soft, nontender, nondistended, no rebound, no guarding, no peritoneal signs. Musculoskeletal: No joint swelling or deformity, normal muscle tone. Skin: No rashes or petechia, no signs of infection. Psychiatric: Alert and oriented, normal behavior and judgment for situation. Neurological: Alert and oriented to person, place, and time. Follows all commands. No focal deficits, speech is clear and fluent. 5 out of 5 motor strength in the bilateral upper and lower extremity. Sensation intact in the bilateral upper and lower extremity. Gait is intact and normal. Course Vital Signs Vital signs: Vital Signs Temperature 98.1 F 08/05/23 10:07 Pulse Rate 79 08/05/23 10:07 Respiratory Rate 19 08/05/23 10:07 Blood Pressur
[2023-08-05] MEDS: SODIUM CHLORIDE 0.9% IV 500 ML 999 ML IV CONT (11:47)
[2023-08-05] MEDS: KETOROLAC 15 MG/ML VIAL (*BKC) IV PUSH ×2 (12:28→15:39)
[2023-08-05] MEDS: SODIUM CHLORIDE 0.9% IV 1,000 ML 999 ML IV CONT (13:56)
--- NOTE | 2023-08-05 13:57 | PC.NURSE ---
pt reports potassium infusion is burning, NS bolus started with K+
[2023-08-05 15:34] LABS: Potassium 3.5 mmol/L (3.4-5.0)
== END 2023-08-05 16:01 | disposition home or self-care (01) ==
PROVIDERS: Emergency Provider Emergency Medicine; PCP Internal Medicine
DX: R20.2 Paresthesia of skin (principal); E87.6 Hypokalemia; J45.909 Unspecified asthma, uncomplicated; F17.210 Nicotine dependence, cigarettes, uncomplicated; Z95.2 Presence of prosthetic heart valve; Z87.01 Personal history of pneumonia (recurrent); I51.7 Cardiomegaly; R94.31 Abnormal electrocardiogram [ECG] [EKG]
CPT/HCPCS: 36415; 80053; 83735; 84132; 85025; 93005; 96365; 96366; 96367; 96375; 99284; A9270; J1885; J2405; J3475; J3480; J7030; J7040

== ENCOUNTER 2023-09-04 09:59 | Emergency (ER) | payer BC, SELFPAY ==
[2023-09-04 10:03] VITALS: BP 136/76; PULSE 99; RESP 20; TEMP 36.3; O2SAT 97
--- NOTE | 2023-09-04 10:15 | ED.URI ---
HPI - URI/Sore Throat General Chief Complaint: Upper Respiratory Infection Stated Complaint: Sore Throat/Congestion History of Present Illness HPI Narrative: Patient presents with a sore throat. No trouble swallowing no drooling. Patient states she has a history of strep and wants to make sure she does not have strep throat once again. Patient states she took a home COVID test which was negative. Related Data Home Medications Medication Instructions Recorded Confirmed cetirizine 10 mg tablet (Zyrtec) 10 mg PO DAILY 08/03/22 09/04/23 furosemide 80 mg tablet 80 mg PO BID 06/18/23 09/04/23 metoprolol tartrate 50 mg tablet 50 mg PO BID 06/18/23 09/04/23 potassium chloride 20 mEq 40 meq PO DAILY 06/18/23 09/04/23 tablet,extended release(part/cryst) Allergies Allergy/AdvReac Type Severity Reaction Status Date / Time levofloxacin Allergy Severe Chest Pain Verified 09/04/23 10:02 Cephalosporins AdvReac Intermediate Nausea and Verified 09/04/23 10:02 Vomiting Penicillins AdvReac Intermediate Gastrointestinal Verified 09/04/23 10:02 Upset Review of Systems Review of Systems: CONSTITUTIONAL: Denies chills, or sweats. Reports fever and generalized body aches EYES: Denies visual changes, redness, or discharge. ENT: Denies otalgia. Reports nasal congestion runny nose and sore throat CARDIOVASCULAR: Denies chest pain, palpitations, or edema. RESPIRATORY: Denies dyspnea. Reports occasional cough GASTROINTESTINAL: Denies abdominal pain, nausea, vomiting, or diarrhea. GENITOURINARY: Denies dysuria or hematuria. SKIN: Denies rash or itching. MUSCULOSKELETAL: Denies back pain, joint pain, or myalgia. Reports generalized body aches NEUROLOGIC: Denies headache, numbness, or weakness. PSYCHIATRIC: Denies anxiety or depression. [facility] Past Medical History Medical History Asthma Bronchitis Intraductal papilloma of right breast excision Pneumonia Sinusitis Surgical History Surgical History H/O left knee surgery History of aortic valve replacement Hx of right knee surgery Previous section Family History Family History Mother Family history non-contributory Social History Social History Smoking packs per day: 1 Smoking cigarettes per day: 20.0 Years smoked: 10 Smoking pack-years: 10.00 Smoking status: Current every day smoker Alcohol intake: current Alcohol use details: social Substance use type: does not use Gender identity (if verbalized by the patient): Female Comments At time of signature, agree with nursing past medical, surgical, social and family history. There is no relevant family history pertinent to the presenting complaint Exam Narrative: The patient is a well-developed, well-nourished in no acute distress. SKIN: Skin is warm and dry without erythema, swelling or exudate. There is good turgor. No tenting. HEAD: Atraumatic. Normocephalic. No temporal or scalp tenderness. EYES: Moist and bright. Sclera and conjunctivae normal. No discharge. PERRLA. Extraocular motions intact. Gross visual acuity intact. EARS: Pinna is normal shape and contour. Clear external auditory canals. TM pearly chen with good cone of light, no erythema or suppuration. Bilateral cerumen noted no gross hearing deficit. NOSE: pink, moist mucosa with good air movement. Clear rhinorrhea without nasal flaring. Septum midline. Mouth: moist mucous membranes. THROAT; mild erythema noted to posterior oropharynx with moderate postnasal drainage. Without exudate or ulceration.. Uvula midline. Normal movement of soft palate. NECK: Supple and nontender with full range of motion without discomfort. No meningeal signs. LUNGS: Equal and bilateral breath sounds without wheezes, rales or r
== END 2023-09-04 10:20 | disposition home or self-care (01) ==
PROVIDERS: Emergency Provider Nurse Practitioner Family; PCP Internal Medicine
DX: J06.9 Acute upper respiratory infection, unspecified (principal); F17.210 Nicotine dependence, cigarettes, uncomplicated; Z79.899 Other long term (current) drug therapy
CPT/HCPCS: 87081; 87880; 99213; G0463

== ENCOUNTER 2023-10-14 14:29 | Emergency (ER) | payer BC, SELFPAY ==
[2023-10-14] VITALS (11 sets, daily range): BP systolic 135–176; BP diastolic 97–105; PULSE 82–90; RESP 15–29; TEMP 36.4; O2SAT 99–100
--- NOTE | ~2023-10-14 | XR_ITS ---
EXAMINATION: XR chest 2V Exam Date/Time: 10/14/2023 15:05 DISTRIBUTION [facility]EM[facility] HISTORY: PALPATATIONS, SOB STARTED TODAY Comparison: 01/19/2023. RESULT: Lines, tubes, and devices: Intact sternotomy wires. Mediastinal surgical clips. Valve replacement. S urgical clips in the right lower neck. Lungs and pleura: Clear. Cardiomediastinal silhouette: Stable. Other: No acute osseous or upper abdominal finding. IMPRESSION: No acute cardiopulmonary process. Reviewed, dictated and finalized at location [facility]. [facility]
--- NOTE | 2023-10-14 14:45 | ECG_ITS ---
Measurements Intervals [place] Rate: 89 P: 45 [place]: 156 QRS: -33 QRSD: 99 T: 32 QT: 396 QTc: 483 Interpretive Statements SINUS RHYTHM LEFT ANTERIOR SUPERIOR HEMIBLOCK ABNORMAL ECG COMPARED TO ECG 08/05/2023 11:20:58 NO SIGNIFICANT CHANGE Electronically Signed On 10-14-2023 18:08:08 [employer] by Yovany Castillo M.D.
[2023-10-14 15:08] LABS: Basophils Absolute Auto 0.1 K/mm3 (0.0-0.1); Basophils Percent Auto 1.3 % (0.2-1.2); Eosinophils Absolute Auto 0.1 K/mm3 (0-0.3); Eosinophils Percent Auto 1.2 % (0-4.4); Hematocrit 42.2 % (37.0-47.0); Hemoglobin 13.7 g/dL (12.0-15.0); Immature Granulocyte Absolute 0.02 K/mm3 (0.00-0.031); Immature Granulocyte Percent A 0.3 % (0-0.5); Lymphocytes Absolute Auto 2.22 K/mm3 (0.9-3.2); Lymphocytes Percent Auto 32.5 % (18.3-44.2); Mean Corpuscular HGB Conc 32.5 g/dl (32-36); Mean Corpuscular Volume 101.7 fl (80-100); Mean Platelet Volume 10.1 fl (7.4-10.4); Monocytes Absolute Auto 0.6 K/mm3 (0.1-0.6); Monocytes Percent Auto 8.2 % (2.6-8.5); Neutrophils Absolute Auto 3.9 K/mm3 (1.3-6.7); Neutrophils Percent Auto 56.5 % (45.5-73.1); Platelet Count Result 278 k/mm3 (150-375); Red Blood Count 4.15 M/mm3 (4.2-5.4); Red Cell Distribution Width 13.2 % (11.5-14.5); White Blood Count 6.8 K/mm3 (4.5-10.0)
[2023-10-14 15:15] LABS: Alanine Aminotransferase 26 U/L (6-35); Albumin Level 3.9 g/dL (3.5-5.1); Alkaline Phosphatase 62 U/L (38-126); Anion Gap 11 mmol/L (8-16); Aspartate Amino Transferase 32 U/L (14-36); Bilirubin,Total 0.5 mg/dL (0.2-1.3); Blood Urea Nitrogen 13 mg/dL (7-17); Calcium 8.5 mg/dL (8.4-10.2); Carbon Dioxide 27 mmol/L (22-30); Chloride 103 mmol/L (98-107); Estimated CRCL calculation 127 ml/min; Estimated Glomerular Filt Rate > 60; Glucose 117 mg/dL (65-110); Lipase 73 U/L (23-300); Potassium 3.4 mmol/L (3.4-5.0); Sodium 141 mmol/L (137-145)
[2023-10-14 15:27] LABS: Troponin I < 0.012 ng/mL (0.000-0.034)
[2023-10-14 15:32] LABS: INR 0.9; Partial Thromboplastin Time 22.2 SECONDS (22.3-36.8); Prothrombin Time 12.7 Seconds (11.1-14.7)
[2023-10-14 17:27] LABS: Magnesium 1.4 mg/dL (1.6-2.3)
[2023-10-14] MEDS: ONDANSETRON INJ 4 MG/2 ML VIAL IV PUSH (17:43)
[2023-10-14] MEDS: MAGNESIUM SULF 1 GM/D5W 100 ML 1 GM/100 ML BAG IVPB (17:43)
--- NOTE | 2023-10-14 17:49 | ECG_ITS ---
Measurements Intervals [place] Rate: 85 P: 47 MT: 159 QRS: -36 QRSD: 105 T: 34 QT: 397 QTc: 473 Interpretive Statements SINUS RHYTHM LEFT ANTERIOR SUPERIOR HEMIBLOCK ABNORMAL ECG COMPARED TO ECG 10/14/2023 14:54:00 NO SIGNIFICANT CHANGE Electronically Signed On 10-14-2023 18:13:59 MEDICAL ASSISTANT by Yovany Castillo M.D.
[2023-10-14 18:23] LABS: Troponin I < 0.012 ng/mL (0.000-0.034)
--- NOTE | 2023-10-14 19:49 | ED.SOB ---
HPI - SOB/Dyspnea General Chief Complaint: Shortness of Breath/Dyspnea Stated Complaint: sob, palpitations Time Seen by Provider: 10/14/23 16:14 History of Present Illness HPI Narrative: Patient is a 48-year-old female who presents ER with multiple concerns. First concern is at 8:00 a.m. she began having tingling in her face arms bilaterally. Is associated with anxiousness or shortness of but she does have some separate shortness of breath that has been occurring. No aggravating or relieving factors for the shortness of breath. Tingling in the face is without focal weakness to the leg slurred speech. No history of CVA. Patient does have history of alcoholism is to congenital bicuspid valve. Patient also feels like her knee of the recent today. Is not currently. No history of arrhythmia. Patient reports poor compliance with her Lasix. She reports last time she had tingling of face like this for potassium was low. Related Data Home Medications Medication Instructions Recorded Confirmed cetirizine 10 mg tablet (Zyrtec) 10 mg PO DAILY 08/03/22 09/04/23 furosemide 80 mg tablet 80 mg PO BID 06/18/23 09/04/23 metoprolol tartrate 50 mg tablet 50 mg PO BID 06/18/23 09/04/23 potassium chloride 20 mEq 40 meq PO DAILY 06/18/23 09/04/23 tablet,extended release(part/cryst) Allergies Allergy/AdvReac Type Severity Reaction Status Date / Time levofloxacin Allergy Severe Chest Pain Verified 10/14/23 16:26 Cephalosporins AdvReac Intermediate Nausea and Verified 10/14/23 16:26 Vomiting Penicillins AdvReac Intermediate Gastrointestinal Verified 10/14/23 16:26 Upset Review of Systems Review of Systems: All systems reviewed & are unremarkable except as noted in HPI and below Constitutional: Constitutional: Reports no additional constitutional complaints ENT: Reports system reviewed and no additional complaints, except as documented Cardiovascular: Cardiovascular: Reports chest pain, Reports rapid heart rate and Denies radiating jaw, neck or arm pain Respiratory: Respiratory: Denies cough, Reports dyspnea and Denies wheezing Gastrointestinal: Gastrointestinal: Reports no additional gastrointestinal complaints Genitourinary: Genitourinary: Reports no additional female genitourinary complaints Musculoskeletal: Musculoskeletal: Reports no additional musculoskeletal complaints Neurologic: Denies syncope, Denies headache(s) and Denies focal weakness Comments: Facial and arm tingling PMFSH Past Medical History Medical History Asthma Bronchitis Intraductal papilloma of right breast excision Pneumonia Sinusitis Surgical History Surgical History H/O left knee surgery History of aortic valve replacement Hx of right knee surgery Previous section Family History Family History Mother Family history non-contributory Social History Social History Smoking packs per day: 1 Smoking cigarettes per day: 20.0 Years smoked: 10 Smoking pack-years: 10.00 Smoking status: Current every day smoker Alcohol intake: current Alcohol use details: social Substance use type: does not use Gender identity (if verbalized by the patient): Female Exam Narrative: GENERAL: Well-appearing, well-nourished, and in no acute distress. HEAD: Normocephalic, atraumatic. ENT: Mucous membranes moist. CHEST: Clear to auscultation. No respiratory distress. HEART: Regular rate and rhythm. Normal peripheral pulses. ABDOMEN: Soft, nontender, nondistended. EXTREMITIES: Normal range of motion. No edema. SKIN: Warm, dry, no rash. NEURO: No focal deficits. Alert and oriented x3. No extremity drift. No facial droop or slurred speech or dysarthria. PSYCH: Normal mood and affect. Course
== END 2023-10-14 20:00 | disposition home or self-care (01) ==
PROVIDERS: Emergency Provider Emergency Medicine; PCP Internal Medicine
DX: R20.2 Paresthesia of skin (principal); R00.2 Palpitations; E83.42 Hypomagnesemia; J45.909 Unspecified asthma, uncomplicated; Z87.01 Personal history of pneumonia (recurrent); Z95.2 Presence of prosthetic heart valve; F17.210 Nicotine dependence, cigarettes, uncomplicated; I44.4 Left anterior fascicular block
CPT/HCPCS: 36415; 71046; 80053; 83690; 83735; 84484; 85025; 85610; 85730; 93005; 96365; 96375; 99284; J2405; J3475

== ENCOUNTER 2024-06-24 11:47 | Emergency (ER) | payer SELFPAY ==
[2024-06-24 11:57] VITALS: BP 147/90; PULSE 79; RESP 18; TEMP 36.3; O2SAT 98
--- NOTE | 2024-06-24 11:58 | ED.EXTPRO ---
HPI - Extremity Problem General Chief complaint: Extremity Problem,Nontraumatic Stated complaint: achilles tendon pain and discoloration Time Seen by Provider: 06/24/24 12:05 Source: patient Mode of arrival: ambulatory Limitations: no limitations History of Present Illness HPI Narrative: Mckenzie is a 48-year-old female patient presenting to the clinic today with complaints of pain over her Achilles tendon with swelling to her foot, ankle, and calf. No known injury to her Achilles tendon. She reports symptoms started either on Wednesday or Wednesday. 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 History of 2 open heart surgeries without replacement. Does not take a blood thinner regularly-states she is suppose to take a baby aspirin daily but does not always remember to take it. She is a current smoker. Denies being on any hormone replacement or control. Denies any shortness of breath, dizziness, visual changes, headache, or chest pain. Related Data Home Medications Medication Instructions Recorded Confirmed cetirizine 10 mg tablet (Zyrtec) 10 mg PO DAILY 08/03/22 06/24/24 furosemide 80 mg tablet 80 mg PO BID 06/18/23 06/24/24 metoprolol tartrate 50 mg tablet 50 mg PO BID 06/18/23 06/24/24 potassium chloride 20 mEq 40 meq PO DAILY 06/18/23 06/24/24 tablet,extended release(part/cryst) Allergies Allergy/AdvReac Type Severity Reaction Status Date / Time levofloxacin Allergy Severe Chest Pain Verified 06/24/24 12:02 Cephalosporins AdvReac Intermediate Nausea and Verified 06/24/24 12:02 Vomiting Penicillins AdvReac Intermediate Gastrointestinal Verified 06/24/24 12:02 Upset Review of Systems Review of Systems: Pertinent positives per HPI. Patient denies any fever, chills, rash, headache, visual changes, dizziness, cough, runny nose, sore throat, shortness of breath, chest pain, palpitations, nausea, vomiting, diarrhea, constipation, abdominal pain, or any urinary issues. [facility] Past Medical History Medical History Asthma Bronchitis Intraductal papilloma of right breast excision Pneumonia Sinusitis Surgical History Surgical History H/O left knee surgery History of aortic valve replacement Hx of right knee surgery Previous section Family History Family History Mother Family history non-contributory Social History Social History Smoking packs per day: 1 Smoking cigarettes per day: 20.0 Years smoked: 10 Smoking pack-years: 10.00 Smoking status: Current every day smoker Alcohol intake: current Alcohol use details: social Substance use type: does not use Gender identity (if verbalized by the patient): Female Comments At the time of my signature, I reviewed and agree with the nursing past medical, surgical, social, and family history. There is no relevant family history pertinent to the patient complaint. Exam Narrative: General: Well-developed, morbildy obese, in no apparent distress Head: Normocephalic, atraumatic. Cardio: Regular rate and rhythm, s1 and s2 normal, no murmur appreciated. Resp: Clear to auscultation bilaterally, no rhonchi, rales, wheezing or rubs. Musculoskeletal: No deformity, trace pitting edema in the right lower leg- calf,ankle, and foot appear 2-3 times the size of the left, tenderness to palpation over the Achilles tendon with some discoloration of the skin, no calf pain to palpation, pain with dorsal and plantar flexion over the Achilles tendon, muscle strength strong and equal, peripheral pulse strong,no cyanosis,using crutches with cautious gait. Course Course Emergency Course: Portions of this record may have been created with voice recognition software. Level of Care: [facility]
== END 2024-06-24 12:22 | disposition short-term general hospital (02) ==
PROVIDERS: Emergency Provider Nurse Practitioner Family; PCP Internal Medicine
DX: R22.41 Localized swelling, mass and lump, right lower limb (principal); F17.210 Nicotine dependence, cigarettes, uncomplicated; J45.909 Unspecified asthma, uncomplicated; Z95.2 Presence of prosthetic heart valve
CPT/HCPCS: 99212; G0463

== ENCOUNTER 2024-07-07 17:48 | Emergency (ER) | payer SELFPAY ==
--- NOTE | 2024-07-07 17:54 | ED.SKABFB ---
HPI - Skin/Abscess/Foreign Bdy General Chief complaint: Skin/Abscess/Foreign Body Stated complaint: rt breast abscess Time Seen by Provider: 07/07/24 17:56 Source: patient, RN notes reviewed and old records reviewed Mode of arrival: ambulatory Limitations: no limitations History of Present Illness HPI narrative: 48 year old female who presents to express care with complaints of painful red warm tender tissue especially to upper and lateral aspects of her right breast for the past week. Patient reports that she has had similar episodes in the past and has had biopsy and also ducts have been removed from her right breast with diagnosis of breast papillomas. Patient states she could not get into her [employer] for 2 weeks. Patient has been applying ice to breast at intervals and has taken some OTC medication for discomfort. Patient reports no nipple discharge. MD complaint: abscess/boil ( to right breast) Onset (ago): week(s) (1) Location: chest (right breast) Severity scale (1-10): 9 Quality: sharp and constant Treatments prior to arrival: other (otc medication ans also ice) Related Data Home Medications Medication Instructions Recorded Confirmed cetirizine 10 mg tablet (Zyrtec) 10 mg PO DAILY 08/03/22 07/07/24 furosemide 80 mg tablet 80 mg PO BID 06/18/23 07/07/24 metoprolol tartrate 50 mg tablet 50 mg PO BID 06/18/23 07/07/24 potassium chloride 20 mEq 40 meq PO DAILY 06/18/23 07/07/24 tablet,extended release(part/cryst) aspirin 81 mg chewable tablet 81 mg PO DAILY 07/07/24 07/07/24 Allergies Allergy/AdvReac Type Severity Reaction Status Date / Time levofloxacin Allergy Severe Chest Pain Verified 07/07/24 17:59 Cephalosporins AdvReac Intermediate Nausea and Verified 07/07/24 17:59 Vomiting Penicillins AdvReac Intermediate Gastrointestinal Verified 07/07/24 17:59 Upset Review of Systems Review of Systems: CONSTITUTIONAL: Denies fever, chills, or sweats. CARDIOVASCULAR: Denies chest pain, palpitations, or edema. RESPIRATORY: Denies cough or dyspnea. GASTROINTESTINAL: Denies abdominal pain, nausea, vomiting SKIN: Reports redness and swelling. Denies purulent drainage,warmth to tissue, pain on palpation to right breast MUSCULOSKELETAL: Denies myalgia. NEUROLOGIC: Denies headache, numbness All systems reviewed & are unremarkable except as noted in HPI and below PMFSH Past Medical History Medical History Asthma Bronchitis Intraductal papilloma of right breast excision Pneumonia Sinusitis Surgical History Surgical History H/O left knee surgery History of aortic valve replacement Hx of right knee surgery Previous section Family History Family History Mother Family history non-contributory Social History Social History Smoking packs per day: 1 Smoking cigarettes per day: 20.0 Years smoked: 10 Smoking pack-years: 10.00 Smoking status: Current every day smoker Alcohol intake: current Alcohol use details: social Substance use type: does not use Gender identity (if verbalized by the patient): Female Comments At time of signature, agree with nursing past medical, surgical, social and family history. There is no relevant family history pertinent to the presenting complaint Exam Narrative: GENERAL: Well-appearing, well-nourished, and in no acute distress. HEAD: Normocephalic, atraumatic. EYES: PERRLA and EOMI. ENT: Nares clear, no rhinorrhea or epistaxis. Mucous membranes moist. NECK: Supple.no lymphadenopathy CHEST: Clear to auscultation. No respiratory distress.SAO2 100% on room air HEART: Regular rate and rhythm. No murmur heard. Normal peripheral pulses. ABDOMEN: Soft, nontender, nondistended, normal active bowel sounds. EXTREMITIES: Normal range o
[2024-07-07 17:59] VITALS: BP 128/91; PULSE 83; RESP 15; TEMP 36.2; O2SAT 100
== END 2024-07-07 18:30 | disposition home or self-care (01) ==
PROVIDERS: Emergency Provider Registered Nurse; PCP Internal Medicine
DX: N61.1 Abscess of the breast and nipple (principal); F17.210 Nicotine dependence, cigarettes, uncomplicated; J45.909 Unspecified asthma, uncomplicated; Z95.2 Presence of prosthetic heart valve; Z79.82 Long term (current) use of aspirin
CPT/HCPCS: 99213; G0463

== ENCOUNTER 2024-08-30 22:34 | Emergency (ER) | payer SELFPAY ==
--- NOTE | ~2024-08-30 | XR_ITS ---
CHEST RADIOGRAPH, PA AND LATERAL CLINICAL HISTORY: chest pain LEFT SIDE HX AORTIC VALVE REPLACED . COMPARISON: Examination is compared with multiple prior studies performed most recently on 10/14/2023 and dating back to 12/30/2015 TECHNIQUE: PA and lateral views of the chest. FINDINGS Sternal wires and mediastinal clips are identified, the wires are midline and intact. Prosthetic valve in the aortic position. The remainder of the cardiomediastinal silhouette is otherwise unremarkable. The lungs are clear. IMPRESSION: No focal infiltrate or effusion. Reviewed, dictated and finalized at location A. 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
--- NOTE | 2024-08-30 22:35 | ECG_ITS ---
Test Date: 2024-08-30 22:39:26 Measurements Intervals [place] Rate: 79 P: 45 VT: 164 QRS: -37 QRSD: 101 T: 56 QT: 377 QTc: 433 Interpretive Statements SINUS RHYTHM LEFT AXIS DEVIATION PATTERN CONSISTENT WITH PULMONARY DISEASE VOLTAGE CRITERIA FOR LVH BORDERLINE ST-T WAVE ABNORMALITY- HIGH LATERAL LEADS BASELINE ARTIFACT- III BORDERLINE ECG No previous ECG available for comparison Electronically Signed On 08-31-2024 05:27:31 ENDLESS STEAMER TENDER by Dieudonne East D.O.
[2024-08-30 22:37] VITALS: BP 150/85; PULSE 78; RESP 14; TEMP 36.4; O2SAT 100
[2024-08-30 22:46] VITALS: O2SAT 100
[2024-08-30 22:55] VITALS: PULSE 76
[2024-08-30 22:57] LABS: Basophils Absolute Auto 0.1 K/mm3 (0.0-0.1); Eosinophils Absolute Auto 0.2 K/mm3 (0-0.3); Eosinophils Percent Auto 3.2 % (0-4.4); Hematocrit 40.9 % (37.0-47.0); Immature Granulocyte Absolute 0.03 K/mm3 (0.00-0.031); Immature Granulocyte Percent A 0.4 % (0-0.5); Lymphocytes Absolute Auto 2.41 K/mm3 (0.9-3.2); Lymphocytes Percent Auto 35.5 % (18.3-44.2); Mean Corpuscular HGB Conc 34.2 g/dl (32-36); Mean Corpuscular Hemoglobin 35.8 pg (26-34); Mean Corpuscular Volume 104.6 fl (80-100); Mean Platelet Volume 10.1 fl (7.4-10.4); Monocytes Absolute Auto 0.5 K/mm3 (0.1-0.6); Monocytes Percent Auto 7.8 % (2.6-8.5); Neutrophils Absolute Auto 3.5 K/mm3 (1.3-6.7); Neutrophils Percent Auto 52.1 % (45.5-73.1); Platelet Count Result 255 k/mm3 (150-375); Red Blood Count 3.91 M/mm3 (4.2-5.4); Red Cell Distribution Width 12.6 % (11.5-14.5); White Blood Count 6.8 K/mm3 (4.5-10.0)
[2024-08-30 23:07] LABS: Alanine Aminotransferase 39 U/L (6-35); Alkaline Phosphatase 48 U/L (38-126); Anion Gap 10 mmol/L (4-12); Aspartate Amino Transferase 64 U/L (14-36); Bilirubin,Total 0.6 mg/dL (0.2-1.3); Blood Urea Nitrogen 9 mg/dL (7-17); Calcium 8.5 mg/dL (8.4-10.2); Carbon Dioxide 24 mmol/L (22-30); Chloride 103 mmol/L (98-107); Estimated CRCL calculation 156 ml/min; Estimated Glomerular Filt Rate > 60; Glucose 131 mg/dL (65-110); Lipase 89 U/L (23-300); Potassium 3.6 mmol/L (3.4-5.0); Sodium 137 mmol/L (137-145)
[2024-08-30 23:08] LABS: INR 0.9; Prothrombin Time 13.1 Seconds (11.1-14.7)
[2024-08-30 23:09] LABS: Partial Thromboplastin Time 22.7 Seconds (22.3-36.8)
[2024-08-30 23:25] LABS: Troponin I < 0.012 ng/mL (0.000-0.034)
[2024-08-30] MEDS: ONDANSETRON INJ 4 MG/2 ML VIAL IV PUSH (23:29)
[2024-08-30] MEDS: MORPHINE SULFATE (*CRX) 4 MG/ML INJ IV PUSH (23:31)
--- NOTE | 2024-08-31 00:03 | ED.CHESTPAIN ---
HPI - Chest Pain General Chief Complaint: Chest Pain Stated Complaint: chest pain Time Seen by Provider: 08/30/24 22:56 Source: patient and family Mode of arrival: ambulatory Limitations: no limitations History of Present Illness HPI narrative: 49-year-old status post aortic valve replacement here with a complaint of sudden onset of left-sided chest pain radiating into arm. Patient states that her arm was tingling in nature. Pain is sharp shooting in nature. She had mild shortness of breath. She will cousin of suicide residential. Denies lifting any heavy objects. No previous history of CAD. MD complaint: chest pain Onset (ago): hour(s) (1) Timing of current episode: constant Pain location: left chest Pain radiation: left arm Severity: moderate Quality: sharp Relieving factors: nothing Exacerbating factors: nothing Treatment prior to arrival: none Risk Factors Coronary artery disease risk factors: none Thoracic aortic dissection risk factors: none Related Data Home Medications Medication Instructions Recorded Confirmed cetirizine 10 mg tablet (Zyrtec) 10 mg PO DAILY 08/03/22 07/07/24 furosemide 80 mg tablet 80 mg PO BID 06/18/23 07/07/24 metoprolol tartrate 50 mg tablet 50 mg PO BID 06/18/23 07/07/24 potassium chloride 20 mEq 40 meq PO DAILY 06/18/23 07/07/24 tablet,extended release(part/cryst) aspirin 81 mg chewable tablet 81 mg PO DAILY 07/07/24 07/07/24 Allergies Allergy/AdvReac Type Severity Reaction Status Date / Time levofloxacin Allergy Severe Chest Pain Verified 08/30/24 22:34 Cephalosporins AdvReac Intermediate Nausea and Verified 08/30/24 22:34 Vomiting Penicillins AdvReac Intermediate Gastrointestinal Verified 08/30/24 22:34 Upset Review of Systems Review of Systems: All systems reviewed & are unremarkable except as noted in HPI and below Constitutional: Constitutional: Reports no additional constitutional complaints Eyes: Eyes: Reports no additional eye complaints ENT: Reports system reviewed and no additional complaints, except as documented Cardiovascular: Cardiovascular: Reports as per HPI Respiratory: Respiratory: Reports as per HPI Gastrointestinal: Gastrointestinal: Reports no additional gastrointestinal complaints Musculoskeletal: Musculoskeletal: Reports no additional musculoskeletal complaints Integumentary/Breasts: Skin/Breast: Reports system reviewed and no additional complaints, except as docu PMFSH Past Medical History Medical History Asthma Bronchitis Intraductal papilloma of right breast excision Pneumonia Sinusitis Surgical History Surgical History H/O left knee surgery History of aortic valve replacement Hx of right knee surgery Previous section Family History Family History Mother Family history non-contributory Social History Social History Smoking packs per day: 1 Smoking cigarettes per day: 20.0 Years smoked: 10 Smoking pack-years: 10.00 Smoking status: Current every day smoker Alcohol intake: current Alcohol use details: social Substance use type: does not use Gender identity (if verbalized by the patient): Female Exam Narrative: GENERAL: Well-appearing, well-nourished, and in no acute distress. HEAD: Normocephalic, atraumatic. EYES: PERRLA and EOMI. ENT: Nares clear, Mucous membranes moist. NECK: Supple. CHEST: Clear to auscultation. No respiratory distress. HEART: Regular rate and rhythm. Murmur present ABDOMEN: Soft, nontender, nondistended, normal active bowel sounds. EXTREMITIES: Normal range of motion. No edema. SKIN: Warm, dry, no rash. NEURO: No focal deficits. Alert and oriented x3. PSYCH: Normal mood and affect. Course Course Emergency Course: Informed patient about her lab work. The cause of her pain and appears to be more atypical in nature. I advised her to continue home medication, follow-up with her primary doctor inspector bicycle for follow-up. Vital Signs Vital signs: Vital Signs Temperature 36.4 C L 08/30/24 22:37 Pulse Rate 78 08/30/24 22:37 Respiratory Rate 14 08/30/24 22:37 Blood Pressure 150/85 H 08/30/24 22:37 Pulse Oximetry 100 08/30/24 22:37 Oxygen Delivery Room Air 08/30/24 22:37 Temperature 36.4 C L 08/30/24 22:37 Pulse Rate 76 08/30/24 22:55 Respiratory Rate 14 08/30/24 22:37 Blood Pressure 150/85 H 08/30/24 22:37 Pulse Oximetry 100 08/30/24 22:46 Oxygen Delivery Room Air 08/30/24 22:46 MDM - Chest Pain Differential Diagnosis Differential diagnosis: Likely stable angina, atypical chest pain and chest pain Medical Records Data Attestation: I reviewed the patient's medical records. Lab Data Attestation: I reviewed the patient's lab results. 08/30/24 22:49 08/30/24 22:49 Labs: Lab Results 08/30/24 08/30/24 Range/Units 22:49 22:50 WBC 6.8 (4.5-10.0) K/mm3 RBC 3.91 L (4.2-5.4) M/mm3 Hgb 14.0 (12.0-15.0) g/dL Hct 40.9 (37.0-47.0) % MCV 104.6 H (80-100) fl MCH 35.8 H (26-34) pg MCHC 34.2 (32-36) g/dl RDW 12.6 (11.5-14.5) % Plt Count 255 (150-375) k/mm3 MPV 10.1 (7.4-10.4) fl Immature Gran % (Auto) 0.4 (0-0.5) % Neut % (Auto) 52.1 (45.5-73.1) % Lymph % (Auto) 35.5 (18.3-44.2) % [place] % (Auto) 7.8 (2.6-8.5) % Eos % (Auto) 3.2 (0-4.4) % Baso % (Auto) 1.0 (0.2-1.2) % Lymph # (Auto) 2.41 (0.9-3.2) K/mm3 [place] # (Auto) 0.5 (0.1-0.6) K/mm3 Eos # (Auto) 0.2 (0-0.3) K/mm3 Baso # (Auto) 0.1 (0.0-0.1) K/mm3 Abs Immat Gran (auto) 0.03 (0.00-0.031) K/mm3 Absolute Neuts (auto) 3.5 (1.3-6.7) K/mm3 Absolute Nucleated RBC 0.000 (0.0-0.012) K/mm3 Nucleated RBC % 0.0 (0.0-0.2) % PT 13.1 (11.1-14.7) Seconds INR 0.9 APTT 22.7 (22.3-36.8) Seconds Sodium 137 (137-145) mmol/L Potassium 3.6 (3.4-5.0) mmol/L Chloride 103 (98-107) mmol/L Carbon Dioxide 24 (22-30) mmol/L Anion Gap 10 (4-12) mmol/L BUN 9 (7-17) mg/dL Creatinine 0.50 L (0.7-1.0) mg/dL Estim Creat Clear Calc 156 ml/min Estimated GFR > 60 (59 - ) Glucose 131 H (65-110) mg/dL Calcium 8.5 (8.4-10.2) mg/dL Total Bilirubin 0.6 (0.2-1.3) mg/dL AST 64 H (14-36) U/L ALT 39 H (6-35) U/L Alkaline Phosphatase 48 (38-126) U/L Troponin I < 0.012 (0.000-0.034) ng/mL Total Protein 7.0 (6.3-8.2) g/dL Albumin 4.0 (3.5-5.1) g/dL Lipase 89 (23-300) U/L Imaging Data Radiologist's impression: ITS Impressions Chest X-Ray 08/30/24 23:27 IMPRESSION: No focal infiltrate or effusion. ECG Data EKG #1: ECG completion date: 08/30/24 ECG completion time: 22:39 EKG Interpretation: normal rate (79), sinus rhythm, normal QRS, normal QT, left axis and no acute changes EKG #2: ECG completion date: 08/31/24 ECG completion time: 01:38 EKG Interpretation: normal rate (69), sinus rhythm, no ectopy, non-specific ST changes and left axis Discharge Plan Discharge Clinical Impression: Chest pain Patient Disposition: Home, Self-Care Condition: Stable Instructions: Antibiotic Form Additional Instructions: continue home medications,follow with your doctor. Prescriptions: No Action albuterol sulfate 2.5 mg /3 mL (0.083 %) solution for nebulization 2.5 mg inhalation Q4H PRN (Reason: shortness of breath or wheezing) Qty: 75 0RF cetirizine [Zyrtec] 10 mg Tablet 10 mg PO DAILY potassium chloride 20 mEq tablet,ER particles/crystals 40 meq PO DAILY furosemide 80 mg tablet 80 mg PO BID metoprolol tartrate 50 mg tablet 50 mg PO BID aspirin 81 mg Tablet,Chewable 81 mg PO DAILY doxycycline hyclate 100 mg capsule 100 mg PO BID 10 Days Qty: 20 0RF Follow-up/Referrals: Monie,John Diaz MD [Primary Care Provider] - Time of Disposition: 03:17
--- NOTE | 2024-08-31 01:38 | ECG_ITS ---
Test Date: 2024-08-31 01:38:57 Measurements Intervals [place] Rate: 69 P: 48 HI: 163 QRS: -29 QRSD: 111 T: 46 QT: 444 QTc: 477 Interpretive Statements SINUS RHYTHM WITH OCCASIONAL VENTRICULAR PREMATURE COMPLEXES INTRAVENTRICULAR CONDUCTION DELAY BORDERLINE R WAVE PROGRESSION, ANTERIOR LEADS VOLTAGE CRITERIA FOR LVH BORDERLINE ECG Compared to ECG 08/30/2024 22:39:26 Ventricular premature complex(es) now present Intraventricular conduction delay now present Electronically Signed On 08-31-2024 13:52:04 ENTER[employer]ISE SYSTEMS ENGINEER by Dieudonne East D.O.
[2024-08-31 02:31] VITALS: BP 139/90; PULSE 76; RESP 20; TEMP 36.6; O2SAT 100
[2024-08-31 03:25] LABS: Troponin I < 0.012 ng/mL (0.000-0.034)
== END 2024-08-31 03:38 | disposition home or self-care (01) ==
PROVIDERS: Emergency Provider Family Medicine; PCP Internal Medicine
DX: R07.9 Chest pain, unspecified (principal); F17.210 Nicotine dependence, cigarettes, uncomplicated
CPT/HCPCS: 36415; 71046; 80053; 83690; 84484; 85025; 85610; 85730; 93005; 96374; 96375; 99284; J1885; J2270; J2405

== ENCOUNTER 2024-10-28 15:33 | Emergency (ER) | payer SELFPAY ==
--- NOTE | ~2024-10-28 | XR_ITS ---
XR chest 2V Ordering provider: Lyssa Rivers APRN History: 49 years Female with . cough +smoker, WHEEZING CRACKLES COARSE BREATH SOUNDS . Comparison: August 30, 2024 FINDINGS: MEDIASTINUM: The cardiac silhouette is not enlarged. Postoperative changes in the mediastinum. LUNGS: No effusions or pneumothorax. Minimal opacification the right lung base. Prominent markings in the left lung base. OTHER: No free air under the diaphragm. IMPRESSION: Highly suggestive of early pneumonia in the right lung base. Follow-up advised. Reviewed, dictated and finalized at location A. NIC LAB WORKER
[2024-10-28 16:00] VITALS: BP 140/83; PULSE 88; RESP 22; TEMP 36.1; O2SAT 98
--- NOTE | 2024-10-28 17:00 | ED_ITS ---
HPI - URI/Sore Throat General Chief Complaint: Upper Respiratory Infection Stated Complaint: cold symptoms Time Seen by Provider: 10/28/24 17:01 Source: patient, RN notes reviewed and old records reviewed Mode of arrival: ambulatory Limitations: no limitations History of Present Illness HPI Narrative: 49-year-old female with a history of asthma presents to the [facility] with complaints at of a cough that she has had since August. Worse over the last week. Reports chest congestion and headache. Has been taking Mucinex. Denies fevers. Denies chest pain. Has had wheezing with intermittent cough. Related Data Home Medications ?Medication ?Instructions ?Recorded ?Confirmed ?Last Taken ?Type cetirizine 10 mg tablet (Zyrtec) 10 mg PO DAILY 08/03/22 07/07/24 Unknown History furosemide 80 mg tablet 80 mg PO BID 06/18/23 07/07/24 Unknown History metoprolol tartrate 50 mg tablet 50 mg PO BID 06/18/23 07/07/24 Unknown History aspirin 81 mg chewable tablet 81 mg PO DAILY 07/07/24 07/07/24 Unknown History Allergies Allergy/AdvReac Type Severity Reaction Status Date / Time levofloxacin Allergy Severe Chest Pain Verified 08/30/24 22:34 Cephalosporins AdvReac Intermediate Nausea and Verified 10/28/24 16:04 Vomiting Penicillins AdvReac Intermediate Gastrointestinal Verified 10/28/24 16:04 Upset Review of Systems Review of Systems: All systems reviewed & are unremarkable except as noted in HPI and below Constitutional: Constitutional: Reports no additional constitutional complaints ENT: Reports system reviewed and no additional complaints, except as documented Cardiovascular: Cardiovascular: Reports no additional cardiovascular complaints, Denies chest pain and Denies dyspnea Respiratory: Respiratory: Reports as per HPI, Reports chest congestion, Reports cough and Denies dyspnea Musculoskeletal: Musculoskeletal: Reports no additional musculoskeletal complaints Integumentary/Breasts: Skin/Breast: Reports system reviewed and no additional complaints, except as docu PMFSH Past Medical History Medical History Intraductal papilloma of right breast excision Sinusitis Pneumonia Bronchitis Asthma Surgical History Surgical History H/O left knee surgery Hx of right knee surgery History of aortic valve replacement Previous section Family History Family History Mother Family history non-contributory Social History Social History Smoking packs per day: 1 Smoking cigarettes per day: 20.0 Years smoked: 10 Smoking pack-years: 10.00 Smoking status: Current every day smoker Alcohol intake: current Alcohol use details: social Substance use type: does not use Gender identity (if verbalized by the patient): Female Comments At the time of my signature, I reviewed and agree with the nursing past medical, surgical, social, and family history. There is no relevant family history pertinent to the patient complaint. Exam Const: General: cooperative, healthy appearing, comfortable, no acute distress, well developed, alert and well nourished Nutritional Appearance: well nourished and obese Orientation/consciousness: patient oriented x3 Li mitations: no limitations HENMT: Head: normal to inspection Ears: hearing grossly normal bilaterally, external ears normal, TM's normal bilaterally, EAC's normal, mastoids normal and no periauricular adenopathy Mouth: Yes Normal oral and palatal mucosa present, Yes lip normal, Yes tongue normal and Yes moist mucous membranes Throat: posterior oropharynx normal, uvula midline, postnasal drainage and no uvular edema Eyes: General: appearance normal, both eyes and all related structures Alignment and Position: alignment normal Neck: Neck: normal visual inspection, full ROM, no lymphadenopathy and no meningeal signs Chest: Chest palpation & inspection: normal inspection of the chest Resp: Effort & Inspection: normal respiratory effort and able to speak in complete sentences Auscultation: crackles, no rales, no rhonchi and wheezes expiratory wheezes, inspiratory wheezes and throughout Cardio: Rate: regular rate Skin: General skin exam: normal color and no rashes or lesions noted Neuro: General: patient oriented x3, gait normal, moves all extremities and no meningeal signs Cognition (Neuro): normal cognition Speech: normal speech Gait exam (Neuro): Normal gait present Extrem: General: normal to inspection, full ROM, capillary refill normal and normal gait Psych: Appearance: grossly normal and well kempt Mental Status: mental status grossly normal Speech and movement: Normal speech and movement present and Clear speech present Affect: normal affect Attitude: cooperative Course Course Emergency Course: Patient given breathing treatment in clinic. Post breathing treatment vitals remained stable, patient reports improvement of breathing. Wheezing is now just mild expiratory wheezing. Still rhonchi noted to the right lower lobe. Level of Care: Express Care Visit Vital Signs Vital signs: Vital Signs Temperature 97 F L 10/28/24 16:00 Pulse Rate 88 10/28/24 16:00 Respiratory Rate 22 H 10/28/24 16:00 Blood Pressure 140/83 10/28/24 16:00 Pulse Oximetry 98 10/28/24 16:00 Oxygen Delivery Room Air 10/28/24 16:00 Temperature 97 F L 10/28/24 16:00 Pulse Rate 88 10/28/24 16:00 Respiratory Rate 22 H 10/28/24 16:00 Blood Pressure 140/83 10/28/24 16:00 Pulse Oximetry 98 10/28/24 16:00 Oxygen Delivery Room Air 10/28/24 16:00 Reviewed MDM - URI/Sore Throat MDM Narrative Medical decision making narrative: Patient sitting comfortably in exam well. Nontoxic, vitals stable. Patient with a history of asthma. Breathing treatment started on patient due to inspiratory-expiratory wheezing. Patient x-ray shows right lower lobe pneumonia, patient appropriate for outpatient treatment with close follow-up. Discharge instructions reviewed with patient, as well as provided in writing per nursing staff. The instructions also include specific and strict return/GO TO THE ER as well as f/u information. All questions have been answered, and the patient deny any further questions with discharge and discharge plan. Some parts of this dictation were generated by voice recognition software and may contain typographical and/or grammatical inaccuracies. Differential Diagnosis Differential diagnosis: Likely upper respiratory infection, viral infection, bronchitis and other (Pneumonia) Imaging Data Radiologist's impression: XR chest 2V Ordering provider: Lyssa Rivers APRN History: 49 years Female with . cough +smoker, WHEEZING CRACKLES COARSE BREATH SOUNDS . Comparison: August 30, 2024 FINDINGS: MEDIASTINUM: The cardiac silhouette is not enlarged. Postoperative changes in the mediastinum. LUNGS: No effusions or pneumothorax. Minimal opacification the right lung base. Prominent markings in the left lung base. OTHER: No free air under the diaphragm. IMPRESSION: Highly suggestive of early pneumonia in the right lung base. Follow-up advised. Critical Care Time Critical Care Time Critical Care Time: No Discharge Plan Discharge Clinical Impression: Right lower lobe pneumonia Qualifiers: Pneumonia type: due to unspecified organism Qualified Code(s): J18.9 - Pneumonia, unspecified organism Patient Disposition: Home, Self-Care Condition: Stable Instructions: Antibiotic Form, Pneumonia (ED) Additional Instructions: Use your inhaler 3 to 4 times a day for the next 3-5 days. Take antibiotic as prescribed. Your x-ray showed a developing pneumonia in your right lower lobe. For new or worsening symptoms go directly to the emergency room Patient Language: Nigerien Prescriptions: New doxycycline monohydrate 100 mg tablet 100 mg PO BID Qty: 14 0RF No Action albuterol sulfate 2.5 mg /3 mL (0.083 %) solution for nebulization 2.5 mg inhalation Q4H PRN (Reason: shortness of breath or wheezing) Qty: 75 0RF cetirizine [Zyrtec] 10 mg Tablet 10 mg PO DAILY furosemide 80 mg tablet 80 mg PO BID metoprolol tartrate 50 mg tablet 50 mg PO BID aspirin 81 mg Tablet,Chewable 81 mg PO DAILY Follow-up/Referrals: Monie,John Diaz MD [Primary Care Provider] - 2 Weeks ([facility] follow-up) Stand Alone Forms: Work/School Release IP Time of Disposition: 17:35
[2024-10-28] MEDS: IPRATROPIUM 0.5 MG/ALBUTEROL SULFATE 2.5 MG AMPUL.NEB 3 ML INHALATION (17:26)
== END 2024-10-28 17:50 | disposition home or self-care (01) ==
PROVIDERS: Emergency Provider Nurse Practitioner; PCP Internal Medicine
DX: J18.1 Lobar pneumonia, unspecified organism (principal); J45.909 Unspecified asthma, uncomplicated; F17.210 Nicotine dependence, cigarettes, uncomplicated; Z95.2 Presence of prosthetic heart valve
CPT/HCPCS: 71046; 99213; G0463

== ENCOUNTER 2025-02-19 21:34 | Emergency (ER) | payer SELFPAY ==
--- OUTSIDE RECORDS SUMMARY | 2025-02-19 21:36 | XMS_ITS | Encounter Summary ---
Author Organization [facility] Address [address] [place] [address] Phone Care Team Providers Care Contour Stitcher Name Role Phone Bertha Pérez APRN, DIRECTOR OF PRODUCT MANAGEMENT Unavailable + [phone] John Lomax MD Primary Care Provider + [phone] Sherwin Cuba MD Unavailable Reason for Referral * Radiology Services (Routine) - Authorized Specialty Diagnoses / Procedures Referred By Contac t Referred To Contact Radiology Diagnoses Abnormal mammogram Procedures CHYNA DIAG RIGHT UNILATERAL DIGITAL W CAD W Sherwin Silver MD #[address] [address] Phone: tel: fax: Referral ID Status Reason Start Date Expiration Date V isits Requested Visits Authorized [id number] Authorized 11/28/2024 1 1 MACEUTICAL SPECIALTY REPRESENTATIVE Encounter Details Date Type Department Care Team (Late st Contact Info) Description 11/27/2024 Transcribe Orders [facility] Mammography [address] [place] [address] Sherwin Cuba MD [address] [address] Abnormal mammogram (Primary Dx); Abscess of right breast Social History Tobacco Use Types Packs/Day Years Used Date Smoking Tobacco: Every Day Cigarettes 1 21.3 Started: 2003 Smokeless Tobacco: Never Alcohol Use Standard Drinks/Week Comments Yes 0 (1 standard drink = 0.6 oz pur e alcohol) 1-2 drinks a day PHQ-2 Answer Date Recorded Total Score - Questions 1-9 0 10/25 Sexually Active Control Partners Comments Not Currently Male Comments No Sex and Gender Information Value Date Recorded Sex Assigned at Not on file Legal Sex Female 12:16 AM CDT Gender Identity Not on file Sexual Orientation Not on file documented as of this encounter Plan of Treatment Upcoming Encounters Date Type Department Care Team (Late st Contact Info) Description 07/09/2025 11:00 AM CDT Office Visit [facility] - [facility] - [place] [address] [place] [address] John Lomax MD [address] [place] [address] Scheduled Orders Name Type Priority Associated Diagnoses Orde r Schedule CHYNA DIAG RIGHT UNILATERAL DIGITAL W CAD W ELIZA Imaging Routine Abnormal mammogram Expected: 12/05/2024, Expires: 02/25/2025 documented as of this encounter Visit Diagnoses Diagnosis Abnormal mammogram- Primary Abnormal mammogram, unspecified Abscess of right breast Inflammatory disease of breast documented in this encounter Additional Health Concerns Assessment Noted Time PHQ-9 Depression Total Score: 0 11/05/19 1:04 PM PHARMACEUTICAL SPECIALTY REPRESENTATIVE documented as of this encounter Care Teams Contour Stitcher Relationship Specialty Start Date End Date John Lomax MD [address] [place] [address] PCP - General Internal Medicine 11/05/23 Bertha Pérez, WRECKING CAR DRIVER, DIRECTOR OF PRODUCT MANAGEMENT [address] [facility] [address] [place] [address] [address] Nurse Practitioner Gynecology 11/05/23 Sherwin Cuba MD [address] [address] Consulting Physician General Surgery 07/25/24 documented as of this encounter
--- OUTSIDE RECORDS SUMMARY | 2025-02-19 21:36 | XMS_ITS | Clinical Summary ---
Author Organization [facility] Address [facility] [place] [address] Care Team Providers Care Seal Delivery Vehicle Team Technician Name Role Phone John Lomax MD Primary Care Provider [phone] Allergies Active Allergy Reactions Criticality Noted Date Comments Levofloxacin Itching,Chest pressure 06/24/2024 Penicillins Unknown 06/24/2024 Had a reaction as a child Medications meloxicam (MOBIC) 15 MG tablet Take 1 tablet (15 mg total) by mouth daily. 14 tablet 06/24/2024 Active Social History Tobacco Use Types Packs/Day Years Used Date Smoking Tobacco: Never Smokeless Tobacco: Never Tobacco Cessation:Counseling Given: Not Answered Comments Unknown Sex and Gender Information Value Date Recorded Sex Assigned at Not on file Legal Sex Female 12:51 PM CDT Gender Identity Not on file Sexual Orientation Not on file Last Filed Vital Signs Vital Sign Reading Time Taken Comments Blood Pressure 165/105 06/24/2024 4:10 PM CDT states will monitor b/p and follow up Pulse 70 06/24/2024 4:10 PM CDT Temperature 36.5 C (97.7 F) 06/24/2024 12:58 PM CDT Respiratory Rate 18 06/24/2024 4:10 PM CDT Oxygen Saturation 98% 06/24/2024 4:1 0 PM CDT Inhaled Oxygen Concentration - - Weight 117.9 kg (260 lb) 06/24/2024 12: 58 PM CDT Height 167.6 cm (5' 6 ) 06/24/2024 12:5 8 PM CDT Body Mass Index 41.97 06/24/2024 12:58 PM CDT Plan of Treatment Health Maintenance Due Date Last Done Comments Cervical Cancer Screening Pa p Smear (Age 30 to 64) Every 3 Years 1977 Colorectal Cancer Screening Colonoscopy (10 Years) 1977 Annual Physical 1980 Hepatitis C 1995 DTaP, Tdap and Td Vaccines ( 1 - Tdap) 1996 Hepatitis B Vaccines (1 of 3 - 19+ 3-dose series) 1996 Cervical Cancer Screening Pa p with HPV Testing (Age 30 to 64) Every 5 Years 2007 Cervical Cancer Screening wi HPV 2007 Mammogram Screening 07/14/2023 07/14/2021, 08/03/2017, 09/01/2016 COVID-19 Vaccine (2023-2 5 season) 2024 Pneumococcal Vaccine: Pediatrics (0 to 5 Years) and At-Risk Patients (6 to 49 Years) Aged Out 02/17/2019 No longer eligible b ased on patient's age to complete this topic Meningococcal B Vaccine Aged Out No [place] eligible based on patient's age to complete this topic Meningococcal Vaccine Aged Out No [place] eligible based on patient's age to complete this topic RSV Immunizations Under 20 Months Aged Out No longer eligible b ased on patient's age to complete this topic Care Teams Seal Delivery Vehicle Team Technician Relationship Specialty Start Date End Date John Lomax MD [address] [place] [address] PCP - General INTERNAL MEDICINE 06/24/24
--- OUTSIDE RECORDS SUMMARY | 2025-02-19 21:36 | XMS_ITS | Clinical Summary ---
Author Organization [facility] Address [address] [place] [address] Care Team Providers Care Record Tabulating Clerk Name Role Phone Unavailable Primary Care Provider Unavailabl e Source Comments [facility],non-owned Affiliates and Associated Physician Practices is amultiple site organization consisting of ambulatory clinics and hospital sitesin [place], [place], [place] and [place]. This disclosure is being madepursuant to the Care Everywhere program and may not contain all information available regarding this patient. Last updated 18.[facility] Social History Tobacco Use Types Packs/Day Years Used Date Smoking Tobacco: Never Assessed Comments Unknown Sex and Gender Information Value Date Recorded Sex Assigned at Not on file Legal Sex Female 6:19 AM EXECUTIVE CREATIVE DIRECTOR Gender Identity Not on file Sexual Orientation Not on file Plan of Treatment Health Maintenance Due Date Last Done Comments COLOGUARD (AGES 45-75) - COL ON CA SCREENING 1977 COLON MONITORING 1977 COLONOSCOPY - COLON CA SCREENING 1977 CT COLONOGRAPHY - COLON CA SCREENING 1977 Colorectal Cancer Screening 1977 FIT - COLON CA SCREENING 1977 FLEX SIG - COLON CA SCREENING 1977 LIPID TESTING 1977 MAMMOGRAM 1977 HIV SCREENING 1992 HEPATITIS C SCREENING 08/23/1995 DTAP/TDAP/TD VACCINES (1 - Tdap) 1996 HEPATITIS B VACCINE (1 of 3 - 19+ 3-dose series) 1996 COVID-19 VACCINE (1 - 2023-2 5 season) 2024 DEPRESSION SCREENING 10/25/2024 INFLUENZA VACCINE (Season Ended) 2025 ZOSTER VACCINE (1 of 2) 2027 HIB VACCINE Aged Out No longer eligi ble based on patient's age to complete this topic HPV VACCINE Aged Out No longer eligi ble based on patient's age to complete this topic MENINGOCOCCAL (Group B) VACC INE SHARED DECISION-MAKING Aged Out No longer eligibl e based on patient's age to complete this topic MENINGOCOCCAL GROUPS A/C/Y/W VACCINE Aged Out No longer eligible b ased on patient's age to complete this topic PNEUMOCOCCAL VACCINE Aged Out No long er eligible based on patient's age to complete this topic Insurance MEDICAID - OUT OF STATE
--- OUTSIDE RECORDS SUMMARY | 2025-02-19 21:36 | XMS_ITS | Clinical Summary ---
Author Organization [facility] Address [address], [facility] [address] [place] [address] Phone Care Team Providers Care Clinical Material Handler Name Role Phone Bertha Pérez APRN, CLERICAL SUPPORT SPECIALIST Unavailable + [phone] John Lomax MD Primary Care Provider [phone] Sherwin Cuba MD Unavailable Allergies Active Allergy Reactions Criticality Noted Date Comments [place] Oil Anaphylaxis High 12/12/2021 Cephalosporins Nausea,Unknown Medium 11/02/2016 Levofloxacin Itching,Palpitations ,Shortness of Breath,Other (see Comments) High 06/24/2024 Other-Food Allergen (Not Found In Search) Itching,Swelling High 11/03/2023 Raw veggies and fresh fruits / Watermelon /[place] [employer] hives on her lips and itching and swelling Patient can only eat cooked fruits /berries and /veggies Penicillins Hives,Itching,Swelli ng,Unknown High 11/02/2016 Medications Cetirizine HCl (ZYRTEC PO) Take by mouth. Act venancio albuterol (VENTOLIN HFA) 108 (90 Base) MCG/ACT Aerosol Solution take 2 Puffs by inhalation every 4 hours as needed for Wheezing. 1 Inhaler 9 Active acetaminophen (TYLENOL) 325 MG Tablet Take 650 mg by mouth. 12/27/201 8 Active Multiple Vitamin (MULTIVITAMINS) Capsule Take 1 Cap by mouth. Active furosemide (LASIX) 40 MG TabletIndication s:Status post aortic valve replacement and aortoplasty TAKE 1 TABLET BY MOUTH DAILY 90 Tablet 4 Active potassium chloride SA (KLORCON M) 20 MEQ Tablet Controlled ReleaseIndicatio ns:Status post aortic valve replacement and aortoplasty TAKE 2 TABLETS BY MOUTH DAILY 180 Tablet 4 Active HYDROcodone-acet aminophen (NORCO) 5-325 MG TabletIndication s:Abscess of right breast,Celluliti s of right breast Take 1 Tablet by mouth every 6 hours as needed for Moderate or more severe pain. 20 Tablet 4 Active metoprolol tartrate (LOPRESSOR) 50 MG TabletIndication s:Hypertension, essential TAKE 1 TABLET BY MOUTH DAILY 90 Tablet 5 Active citalopram (CeleXA) 20 MG TabletIndication s:Anxiety with depression Take 1 Tablet by mouth daily. 90 Tablet 5 Active Active Problems Problem Noted Date Diagnosed Date Anxiety with depression 12/28/2024 Hypertension, essential 11/05/2023 Heart block AV second degree 03/21/202309/2024 Overview (11/05/2023): Last Assessment & Plan: Ongoing ATC telemetry Has been intermittently occurring with increasing duration over past 24-48 hrs Pt reports she could FEEL some irregular heart beats at home, but last episode (night 03/20) lasted > 1 hr Discontinued Beta-anita therapy Went into atrial fibrillation this morning in 120s EP cancelled study yesterday as patient did not appear to be in heart block No epicardial wires Metoprolol 50mg BID EP signed off -will need 30 day event monitor @ DC Obstructive sleep apnea 08/11/2019 Overview (08/11/2019): Last Assessment & Plan: Patient states that never was diagnosed with sleep apnea. For now continue with supplemental oxygen as needed. Due to morbid obesity and body habitus strongly encouraged further evaluation to rule out FLAKO. Status post aortic valve replacement and aortopl asty 08/03/2019 Overview (08/11/2019): Last Assessment & Plan: Stable. Continue monitoring Continue cardiac pertinent home medications BMI 50.0-59.9, adult 10/06/2018 Overview (08/11/2019): Last Assessment & Plan: Discussed and encouraged weight loss. Also encouraged testing to r/o FLAKO Patient verbalized understanding Mild intermittent asthma without complication Type 2 diabetes mellitus wit hout complication, without long-term current use of insulin Resolved Problems Problem Noted Date Diagnosed Date Resolved Date Abscess of right breast 07/10/2024 03/0 03/2025 Aortic valve stenosis 09/29/20182018 Overview (02/17/2019): Overview: Added automatically from request for surgery [id number] Last Assessment & Plan: s/p bio AVR w/ aortoplasty with a 25mm Avalus valve 10/11/18 Was discharged on 10/21/18 Presented to her local ED with left pain under her breast Was admitted to [facility] due to murmur heard on exam and WBC -placed on abx -TTE ordered Encounters Date Type Department Care Team Description 01/22/2025 Refill [facility] [place] [address] [place] [address] John Lomax MD Medication Refill 12/28/2024 3:30 PM PRICE CHANGER Office Visit [facility] [place] [address] [place] [address] John Lomax MD Encounter for health maintenance examination (Adult) (Primary Dx); Hypertension, essential; Type 2 diabetes mellitus without complication, without long-term current use of insulin (HCC); Mild intermittent asthma without complication; Encounter for hepatitis C screening test for low risk patient; Status post aortic valve replacement and aortoplasty; Anxiety with depression Discharge Disposition: Discharged to home or Selfcare 12/28/2024 Travel 12/25/2024 Refill [facility] [place] [address] [place] [address] John Lomax MD Medication Refill 12/14/2024 Telephone [facility] [place] [address] [place] [address] John Lomax MD 11/27/2024 Transcribe Orders [facility] [address] [place] [address] Sherwin Cuba MD Abnormal mammogram (Primary Dx); Abscess of right breast from Last 3 Months Immunizations Immunization Administration Dates Next Due Pneumococcal Vaccine - 13 Valent 02/17/2019 Family History Medical History Relation Name Comments No Known Problems Daughter 1 No Known Problems Daughter 2 No Known Problems Daughter 3 No Known Problems Half-Brother No Known Problems Half-Sister Alzheimer's Disease Maternal Grandfather Dementia Maternal Grandmother Hypertension Maternal Grandmother Endometrial Cancer Mother Alzheimer's Disease Paternal Grandmother Kidney Disease Son UPJ obstructi on Relation Name Status Comments Daughter 1 Alive Daughter 2 Alive Daughter 3 Alive Half-Brother Alive Half-Sister Alive Maternal Grandfather Maternal Grandmother Mother Paternal Grandfather Other Paternal Grandmother Other Son Alive Social History Tobacco Use Types Packs/Day Years Used Date Smoking Tobacco: Every Day Cigarettes 1 21.3 Started: 2003 Smokeless Tobacco: Never Tobacco Cessation:Ready to Q uit: No; Counseling Given: No Alcohol Use Standard Drinks/Week Comments Yes 0 (1 standard drink = 0.6 oz pur e alcohol) 1-2 drinks a day [facility] Utilities Answer Date Recorded In the past 12 months has [employer], [employer], oil, or water [employer] threatened to shut off services in your home? No 12/28/2024 Social Connection and Isolat ion Panel [NHANES] Answer Date Recorded In a typical week, how many times do you talk on the phone with family, friends, or neighbors? More than three times a week 12/28/2024 How often do you get togethe r with friends or relatives? More than three times a week 12/28/2024 How often do you attend chur or christian services? Never 12/28/2024 Do you belong to any clubs o r organizations such as voodoo groups, unions, fraternal or athletic groups, or school groups? No 12/28/2024 How often do you attend meet ings of the clubs or organizations you belong to? Never 12/28/2024 Are you , , di vorced, , never , or living with a partner? 12/28/2024 AUDIT-C Answer Date Recorded Q1: How often do you have a drink containing alcohol? 4 or more times a week 12/28/2024 Q2: How many drinks containi ng alcohol do you have on a typical day when you are drinking? 5 or 6 Q3: How often do you have si x or more drinks on one occasion? Daily or almost daily 12/28/2024 Overall Financial Resource Strain (CARDIA) Answe r Date Recorded How hard is it for you to pa y for the very basics like food, housing, medical care, and heating? Somewhat hard 12/28/2024 PHQ-2 Answer Date Recorded Total Score - Questions 1-9 4 03/2025 [facility] Questionnaire Answer Date Recorded Do you feel stress - tense, restless, nervous, or anxious, or unable to sleep at night because your mind is troubled all the time - these days? Not at all 12/28/2024 Exercise Vital Sign Answer Date Recorde d On average, how many days pe r week do you engage in moderate to strenuous exercise (like a brisk walk)? 0 days 12/28/2024 On average, how many minutes do you engage in exercise at this level? 0 min 12/28/2024 Hunger Vital Sign Answer Date Recorded Within the past 12 months, y ou worried that your food would run out before you got the money to buy more. Never true 12/29/19 25 Within the past 12 months, t he food you bought just didn't last and you didn't have money to get more. Never true 12/28/2024 PRAPARE - Transportation Answer Date Re corded In the past 12 months, has l ack of transportation kept you from medical appointments or from getting medications? No 03/2025 In the past 12 months, has l ack of transportation kept you from meetings, work, or from getting things needed for daily living? No 12/28/2024 Housing Stability Vital Sign Answer Tavo e Recorded In the last 12 months, was t here a time when you were not able to pay the mortgage or rent on time? No 12/28/2024 Number of Times Moved in the Last Year Not on fi le 12/28/2024 [facility] the [facility] were you homeless or living in a chcf (including now)? No 12/28/2024 Sexually Active Control Partners Comments Not Currently Male Comments No Sex and Gender Information Value Date Recorded Sex Assigned at Not on file Legal Sex Female 12:16 AM CDT Gender Identity Not on file Sexual Orientation Not on file Last Filed Vital Signs Vital Sign Reading Time Taken Comments Blood Pressure 134/84 12/28/2024 3:41 PM PRICE CHANGER Pulse 113 12/28/2024 3:41 PM PRICE CHANGER Temperature 37 C (98.6 F) 12/28/2024 3:41 PM PRICE CHANGER Respiratory Rate 22 12/28/2024 3:41 PM PRICE CHANGER Oxygen Saturation 97% 12/28/2024 3:41 PM PRICE CHANGER Inhaled Oxygen Concentration - - Weight 122.5 kg (270 lb 1.6 oz) 12/28/2024 3:41 PM PRICE CHANGER Height 167.6 cm (5' 6 ) 12/28/2024 3:41 PM PRICE CHANGER Body Mass Index 43.6 12/28/2024 3:41 PM PRICE CHANGER Plan of Treatment Upcoming Encounters Date Type Department Care Team (Late st Contact Info) Description 07/09/2025 11:00 AM CDT Office Visit [facility] [place] [address] [place] [phone] John Lomax MD [address] [place] [address] Health Maintenance Due Date Last Done Comments Diabetes: Eye Exam 1977 Diabetes: Foot Exam 1977 Hepatitis C Virus (HCV) Screening 1977 TdaP Immunization 1977 Hepatitis B Immunization (1 of 3 - 19+ 3-dose series) 1996 Pap Smear 1998 Cervical Cancer Screening (CCS) 2007 HPV/Cotest 2007 Pneumococcal Immunization Combined (2 of 2 - PPSV23) 04/14/2019 02/17/2019 Colonoscopy 2022 Colorectal Cancer Screening 2022 Diabetes: Hemoglobin A1c 09/05/2023 023, 02/11/2023, 08/03/2019, Additional history exists SARS-COV-2 Immunization ( season) 2024 Influenza Immunization (Season Ended) 2025 Diabetes: Nephropathy Screening 07/10/2025 07/10/2024, 10/14/2023, 08/05/2023, Additional history exists Mammogram 08/01/2025 08/01/2024, 06/26, 07/14/2021, Additional history exists Respiratory Syncytial Virus (RSV) Immunization (Adult) (1 - 1-dose 75+ series) 2052 Discussion re Starting/Frequency of Mammograms Completed 08/01/2024, 07/14/2021, 07/14/2021, Additional history exists Meningococcal Immunization (ACWY) Aged Out No longer eligible based on patient's age to complete this topic Rotavirus Immunization Aged Out No lo nger eligible based on patient's age to complete this topic Procedures Procedure Name Priority Date/Time Associated Diagnosis Comments INFLUENZA TEST 11/26/2024 12:00 AM PRICE CHANGER SARS-COV-2 BY MOLECULAR 11/26/2024 12:00 AM PRICE CHANGER CHYNA DIAG BILATERAL DIGITAL W CAD W ELIZA Routine 08/01/2024 2:37 PM CDT Abscess of right breast CMP (COMPREHENSIVE METABOLIC PANEL) STAT 07/10/2024 12:15 PM CDT HEMOGLOBIN A1C W/ ESTIMATED GLUCOSE Routine 02/17/2019 10:47 AM CDT Type 2 diabetes mellitus without complication, with long-term current use of insulin (HCC) from Last 3 Months or Most Recently Relevant to Health Maintenance Results * INFLUENZA TEST (11/26/2024 12:00 AM PRICE CHANGER) 11/26/2024 us Provider Scan MICROBIOLOGY - GENERAL ORDERABLE S Final Result SCAN * SARS-COV-2 BY MOLECULAR (11/26/2024 12:00 AM PRICE CHANGER) 11/26/2024 us Provider Scan MICROBIOLOGY - GENERAL ORDERABLE S Final Result SCAN * CHYNA DIAG BILATERAL DIGITAL W CAD W ELIZA (08/01/2024 2:37 PM CDT) Anatomical Region Laterality Modality breast Bilateral Mammography 08/01/2024 1:41 PM CDT Narrative 08/02/2024 11:44 AM CDT - CHYNA DIAG BILATERAL DIGITAL W CAD W ELIZA - CHYNA US BREAST LIMITED RT BILATERAL DIGITAL DIAGNOSTIC MAMMOGRAM 3D/2D WITH CAD WITH MEDIOLATERAL OBLIQUE CRANIOCAUDAL AND RIGHT ULTRASOUND: 08/01/2024 The study was acquired using digital technology and interpreted from soft copy. Current study was also evaluated with ICAD version 7.2. 2D digital mammographic views, as well as 3D digital tomosynthesis were performed in the CC and MLO projections. CLINICAL: Patient has had chronic abscesses in the anterior right breast. She had and I & D in the emergency department on 07/10/24. It was strep B positive. Yesterday, a surgeon aspirated 2 ml of pus from her right breast. She has been on antibotics for 3-4 weeks. Her right breast is hard, red, swollen and tender anteriorly and inferiorly. She states there is a lump behind her nipple. She states she had a surgery in 2016 to remove all of the milk ducts in her right breast. Previous benign needle biopsy in 2020. No personal history of cancer. No family history of breast cancer. COMPARISONS: Comparison is made to exams dated: 07/24/2021, 07/14/2021, 07/14/2021, and 08/03/2017 [facility]. BREAST TISSUE:There are scattered areas of fibroglandular density. FINDINGS: BILATERAL DIAGNOSTIC MAMMOGRAM: There is a stable irregular focal asymmetry in the subareolar right breast which is unchanged from 2020. A post biopsy clip is present in the subareolar right breast. There is skin thickening of the right breast which is new. No other significant masses or calcifications are seen in either breast on the mammogram. Further evaluation was obtained with sonography. TARGETED RIGHT BREAST ULTRASOUND: Targeted sonographic evaluation of the right breast was performed. There is thickening of the right nipple with hypoechogenicity in the subareolar right breast which may be phlegmonous tissue. No drainable fluid collection is seen. Diffuse skin thickening is present. A prominent lymph node in the right axilla demonstrates cortical thickening measuring 6 mm, likely reactive. These findings may be consistent with cellulitis. IMPRESSION: OVERALL STUDY BIRADS: CATEGORY 3: PROBABLY BENIGN Possible phlegmonous tissue in the subareolar right breast. No drainable fluid collection is seen. Diffuse skin thickening is suggestive of cellulitis given the presence of erythema. The patient has a scheduled surgical consultation. A follow-up mammogram and an ultrasound in 3 months are recommended to document resolution. The results and recommendations were discussed with the patient. Electronically signed by: Blas Barahona M.D. ll/:08/01/2024 15:26:52 Manager Philosophy(s): Ira Tavares RT(R)(M), [facility]; Marcelle Pizarro, [facility] letter sent: Birad 3 Followup Reading location: [facility] OVERALL STUDY BIRADS: Category 3: Probably Benign Procedure Note Blas Barahona MD - 08/02/2024 - CHYNA DIAG BILATERAL DIGITAL W CAD W ELIZA - CHYNA US BREAST LIMITED RT BILATERAL DIGITAL DIAGNOSTIC MAMMOGRAM 3D/2D WITH CAD WITH MEDIOLATERAL OBLIQUE CRANIOCAUDAL AND RIGHT ULTRASOUND: 08/01/2024 The study was acquired using digital technology and interpreted from soft copy. Current study was also evaluated with ICAD version 7.2. 2D digital mammographic views, as well as 3D digital tomosynthesis were performed in the CC and MLO projections. CLINICAL: Patient has had chronic abscesses in the anterior right breast. She had and I & D in the emergency department on 07/10/24. It was strep B positive. Yesterday, a surgeon aspirated 2 ml of pus from her right breast. She has been on antibotics for 3-4 weeks. Her right breast is hard, red, swollen and tender anteriorly and inferiorly. She states there is a lump behind her nipple. She states she had a surgery in 2017 to remove all of the milk ducts in her right breast. Previous benign needle biopsy in 2020. No personal history of cancer. No family history of breast cancer. COMPARISONS: Comparison is made to exams dated: 07/24/2021, 07/14/2021, 07/14/2021, and 08/03/2017 [facility]. BREAST TISSUE:There are scattered areas of fibroglandular density. FINDINGS: BILATERAL DIAGNOSTIC MAMMOGRAM: There is a stable irregular focal asymmetry in the subareolar right breast which is unchanged from 2020. A post biopsy clip is present in the subareolar right breast. There is skin thickening of the right breast which is new. No other significant masses or calcifications are seen in either breast on the mammogram. Further evaluation was obtained with sonography. TARGETED RIGHT BREAST ULTRASOUND: Targeted sonographic evaluation of the right breast was performed. There is thickening of the right nipple with hypoechogenicity in the subareolar right breast which may be phlegmonous tissue. No drainable fluid collection is seen. Diffuse skin thickening is present. A prominent lymph node in the right axilla demonstrates cortical thickening measuring 6 mm, likely reactive. These findings may be consistent with cellulitis. IMPRESSION: OVERALL STUDY BIRADS: CATEGORY 3: PROBABLY BENIGN Possible phlegmonous tissue in the subareolar right breast. No drainable fluid collection is seen. Diffuse skin thickening is suggestive of cellulitis given the presence of erythema. The patient has a scheduled surgical consultation. A follow-up mammogram and an ultrasound in 3 months are recommended to document resolution. The results and recommendations were discussed with the patient. Electronically signed by: Blas Barahona M.D. ll/:08/01/2024 15:26:52 Manager Philosophy(s): RT Lety(R)(M), [facility]; Marcelle Pizarro, [facility] letter sent: Danilea 3 Followup Reading location: [facility] OVERALL STUDY BIRADS: Category 3: Probably Benign us Sherwin Cuba MD IMG MAMMO ORDERABLES Final Result * (ABNORMAL) CMP (Comprehensive Metabolic Panel) (07/10/2024 12:15 PM CDT) SODIUM 138 136 - 145 mmol/L 07/10/2024 12:[address] [facility] POTASSIUM 3.2(L) 3.5 - 5.1 mmol/L 07/10/2024 12:[address] [facility] CHLORIDE 104 98 - 107 mmol/L 07/10/2024 12:[address] [facility] CO2, VENOUS 22 22 - 30 mmol/L 07/10/2024 12:[address] [facility] ANION GAP 15.2 <18.0 mmol/L 07/10/2024 12:[address] [facility] GLUCOSE 187(H) 70 - 99 mg/dL 07/10/2024 12:[address] [facility] BUN 8 5 - 18 mg/dL 07/10/2024 12:[address] [facility] CREATININE, BLOOD 0.73 0.60 - 1.00 mg/dL 07/10/2024 12:[address] [facility] BUN/CREATININE RATIO 11(L) 12 - 20 ratio 07/10/2024 12:[address] [facility] TOTAL PROTEIN 6.6 6.3 - 8.2 g/dL 07/10/2024 12:[address] [facility] ALBUMIN 3.3(L) 3.5 - 5.0 g/dL 07/10/2024 12:[address] [facility] A/G RATIO 1.0 1.0 - 2.2 07/10/2024 12:[address] [facility] CALCIUM 8.3(L) 8.7 - 10.5 mg/dL 07/10/2024 12:[address] [facility] T BILI 0.6 0.2 - 1.2 mg/dL 07/10/2024 12:[address] [facility] SGOT (AST) 45(H) 5 - 34 U/L 07/10/2024 12:52 PM CDT [facility] SGPT (ALT) 37 0 - 55 U/L 07/10/2024 12:52 PM CDT [facility] ALKALINE PHOSPHATASE 84 40 - 150 U/L 07/10/2024 12:52 PM CDT [facility] GFR, ESTIMATED >60 >=60 07/10/2024 12:52 PM CDT [facility] Comment: Creatinine Clearance is the preferred criteria for selecting drug dose adjustments in renally impaired patients. The GFR is provided as additional pertinent clinical information. GFR is reported in mL/min/1.73 sq m. Calculation based on the Chronic Kidney Disease Epidemiology Collaboration (CKD- EPI) equation refit without adjustment for race. GFR, EST. >60 >=60 024 12:[address] [facility] GFR, EST. NONAFRICAN >60 >=60 07/10/2024 12:[address] [facility] Blood Venipuncture / Unknown 07/10/2024 12:15 PM CDT 07/10/2024 12:30 PM CDT Nicolasa Bonilla APRN, CLERICAL SUPPORT SPECIALIST CHEMISTRY ORDERABLES Final Result [facility] [address] [place] [address] * (ABNORMAL) HEMOGLOBIN A1C W/ ESTIMATED GLUCOSE (02/17/2019 10:47 AM CDT) HGB-A1C 8.3(H) 4.0 - 6.0 % 02/17/2019 2:18 PM CDT [facility] Est Average Glucose 191.5 mg/dL 02/17/2019 2:[address] [facility] Blood specimen (specimen) Venipuncture / Unknown 02/17/2019 10:47 AM CDT 02/17/2019 10:47 AM CDT [facility]ative [facility] - 02/17/2019 2:18 PM CDT HEMOGLOBIN A1C: DIABETIC PATIENTS: WELL-CONTROLLED: 6.2 - 7.0 INTERMEDIATE WELL-CONTROLLED: 7.0 - 9.0 POORLY-CONTROLLED: >9.0 us John Lomax MD CHEMISTRY ORDERABLES Ce schaefer Result [facility] [address] [place] [address] from Last 3 Months or Most Recently Relevant to Health Maintenance Care Teams Clinical Material Handler Relationship Specialty Start Date End Date John Lomax MD [address] [place] [address] PCP - General Internal Medicine 11/05/23 Bertha Pérez, PROCESS CONTROL ENGINEER, CLERICAL SUPPORT SPECIALIST [address] [facility] [address] [facility] [address] [place] [address] Nurse Practitioner Gynecology 11/05/23 Sherwin Cuba MD [address] [facility] [address] [place] [address] Consulting Physician General Surgery 07/25/24
--- OUTSIDE RECORDS SUMMARY | 2025-02-19 21:36 | XMS_ITS | Clinical Summary ---
Author Organization [facility] Building [address] Address [address] [place] [address] Care Team Providers Care Med Surg Rn Name Role Phone John Lomax MD Primary Care Provider + Atilio Carl MD Unavailable [phone] Eunice Soto MD Unavailable Sae Hawkins MD PhD Unavailable + Allergies Active Allergy Reactions Criticality Noted Date Comments [place] Oil Anaphylaxis High Cephalosporins Nausea & Vomiting Low Levofloxacin Chest tightness Medium Penicillin Unknown Medications cetirizine (ZyrTEC) 10 mg capsule 10 mg. 0 0 6 Active multivitamin capsule Take 1 capsule by mouth daily Active aspirin 81 mg tablet Take 1 tablet (81 mg total) by mouth daily. 30 tablet 1 8 Active ferrous sulfate 325 mg (65 mg of elemental iron) tablet Take by mouth Active folic acid (FOLVITE) 800 mcg tablet Take by mouth Active blood-glucose meter kit 1 kit 4 (four) times a day (with meals and nightly) 1 kit 3 Active blood glucose diagnostic strip 100 each by other route as directed 100 strip 1 3 Active lancets misc 100 each by other route as directed 1 each 3 Active oxyCODONE (ROXICODONE) 15 mg immediate release tabletIndications: Pain Take 0.5 tablets (7.5 mg total) by mouth every 4 (four) hours as needed for pain 14 tablet 3 Active acetaminophen 500 mg capsuleIndications :Pain Take 2 capsules (1,000 mg total) by mouth every 6 (six) hours as needed for pain 30 tablet 3 Active methocarbamoL (ROBAXIN) 500 mg tablet Take 1 tablet (500 mg total) by mouth 3 (three) times a day as needed for muscle spasms 60 tablet 3 Active senna-docusate (PERICOLACE) 8.6-50 mg Take 2 tablets by mouth 2 (two) times a day with meals 60 tablet 3 Active polyethylene glycol (MIRALAX) 17 gram packetIndications: constipation Take 1 packet (17 g total) by mouth 2 (two) times a day before breakfast and dinner 30 packet 3 Active magnesium oxide (MAG-OX) 400 mg (241.3 mg elemental magnesium) tabletIndications: hypomagnesemia Take 2 tablets (800 mg total) by mouth 2 (two) times a day 120 tablet 3 Active metoprolol tartrate (LOPRESSOR) 50 mg immediate release tablet Take 1 tablet (50 mg total) by mouth 2 (two) times a day 180 tablet 3 Active albuterol HFA (PROVENTIL HFA,VENTOLIN HFA,PROAIR HFA) 90 mcg/actuation inhaler Inhale 2 puffs every 4 (four) hours as needed for wheezing 18 g 3 Active furosemide (LASIX) 20 mg tablet Take 4 tablets (80 mg total) by mouth 2 (two) times a day 30 tablet 3 Active predniSONE (DELTASONE) 20 mg tabletIndications: Asthma Exacerbation Take 3 tablets (60 mg) by mouth daily 12 tablet 3 Active ondansetron ODT (ZOFRAN-ODT) 8 mg disintegrating tablet Take 1 tablet (8 mg total) by mouth every 8 (eight) hours as needed for nausea or vomiting 30 tablet 4 Active Active Problems Problem Noted Date Diagnosed Date Heart block AV second degree 03/21/2023 Assessment & Plan (03/28/2023 10:59 AM CDT): Ongoing ATC telemetry Has been intermittently occurring [...] need 30 day event monitor @ DC Assessment & Plan (03/27/2023 10:10 AM CDT): Ongoing ATC telemetry Has been intermittently occurring [...] need 30 day event monitor @ DC Assessment & Plan (03/26/2023 1:03 PM CDT): Ongoing ATC telemetry Has been intermittently occurring with increasing duration over past 24-48 hrs Pt reports she could FEEL some irregular heart beats at home, but last episode (night 03/20) lasted > 1 hr Discontinued Beta-anita therapy Went into atrial fibrillation this morning in 120s EP cancelled study yesterday as patient did not appear to be in heart block No epicardial wires Waiting on further EP recs- continue metoprolol 25mg Q6hrs Assessment & Plan (03/25/2023 11:38 AM CDT): Ongoing ATC telemetry Has been intermittently occurring with increasing duration over past 24-48 hrs Pt reports she could FEEL some irregular heart beats at home, but last episode (night 03/20) lasted > 1 hr Discontinued Beta-anita therapy Went into atrial fibrillation this morning in 120s EP cancelled study yesterday as patient did not appear to be in heart block No epicardial wires Waiting on further EP recs- continue metoprolol 25mg Q6hrs Hyperphosphatemia 03/20/2023 Assessment & Plan (03/28/2023 10:58 AM CDT): Noted on hospital labs NOT med related per Pharmacy review Remains elevated Assessment & Plan (03/27/2023 10:09 AM CDT): Noted on hospital labs NOT med related per Pharmacy review Remains elevated Assessment & Plan (03/26/2023 1:03 PM CDT): Noted on hospital labs NOT med related per Pharmacy review Remains elevated Assessment & Plan (03/24/2023 11:44 AM CDT): Noted on hospital labs NOT med related per Pharmacy review Remains elevated Volume overload 03/15/2023 Assessment & Plan (03/27/2023 10:09 AM CDT): Continue Lasix to 80mg PO BID w/ daily zaroxolyn Daily BMP Monitor I&O, daily weights Ongoing negative fluid balance Daily weights have been decreasing--still above pre-op weight Assessment & Plan (03/26/2023 12:37 PM CDT): Continue Lasix to 40 IV bid w/ daily zaroxolyn Daily BMP Monitor I&O, daily weights Ongoing negative fluid balance Daily weights have been decreasing--still above pre-op weight Assessment & Plan (03/20/2023 12:05 PM CDT): Continue Lasix to 40 IV bid w/ daily zaroxolyn Daily BMP Monitor I&O, daily weights Ongoing negative fluid balance Daily weights have been decreasing--still above pre-op weight ABLA (acute blood loss anemia) 03/14/2023 Assessment & Plan (03/28/2023 10:59 AM CDT): As expected post op Will continue to monitor Daily CBC Consider transfusion for Hgb < 7.0 AND symptomatic Receiving daily MVI plus BID iron gluconate Assessment & Plan (03/27/2023 10:17 AM CDT): As expected post op Will continue to monitor Daily CBC Consider transfusion for Hgb < 7.0 AND symptomatic Receiving daily MVI plus BID iron gluconate Assessment & Plan (03/26/2023 1:04 PM CDT): As expected post op Will continue to monitor Daily CBC Consider transfusion for Hgb < 7.0 AND symptomatic Receiving daily MVI plus BID iron gluconate Assessment & Plan (03/20/2023 11:54 AM CDT): As expected post op Will continue to monitor Daily CBC Consider transfusion for Hgb < 7.0 AND symptomatic Receiving daily MVI plus BID iron gluconate Class 3 severe obesity in adult 03/06/2023 Assessment & Plan (03/20/2023 11:57 AM CDT): -Admit BMI of 44.11 -current BMI 45.6 -morbid obesity -Consider wt loss counseling once recovered from surgery -Fall precautions -Bariatric equipment Assessment & Plan (03/08/2023 4:24 PM CDT): Admit BMI of 44.11 - Fall precautions - Consider bariatric equipment - consider weight loss as outpatient Assessment & Plan (03/07/2023 2:21 PM CDT): Admit BMI of 44.11 - Fall precautions - Consider bariatric equipment - consider weight loss as outpatient Assessment & Plan (03/06/2023 1:09 PM CDT): Admit BMI of 44.11 - Fall precautions - Consider bariatric equipment - consider weight loss as outpatient Obstructive sleep apnea 08/11/2019 Overview (07/06/2021): Last Assessment & Plan: Patient states that never was diagnosed with sleep apnea. For now continue with supplemental oxygen as needed. Due to morbid obesity and body habitus strongly encouraged further evaluation to rule out FLAKO. Assessment & Plan (08/03/2019 6:42 AM CDT): Patient states that never was diagnosed with sleep apnea. For now continue with supplemental oxygen as needed. Due to morbid obesity and body habitus strongly encouraged further evaluation to rule out FLAKO. S/P aortic valve replacement 08/03/2019 Overview (07/06/2021): Last Assessment & Plan: Stable. Continue monitoring Continue cardiac pertinent home medications Assessment & Plan (03/28/2023 10:58 AM CDT): -s/p redo AVR (bio) and patch repair of RV per redo sternotomy on 03/09 -Continue post operative care -Ongoing PT/OT/OOB -Needs aggressive diuresis (continue IV bid lasix w/ zaroxolyn) -Cont ASA and BB -Bowel regimen -Discharge planning to home with family, prob after more fluid off loaded -will need 30 day event monitor @ DC (ordered) Assessment & Plan (03/27/2023 10:09 AM CDT): -s/p redo AVR (bio) and patch repair of RV per redo sternotomy on 03/09 -Continue post operative care -Ongoing PT/OT/OOB -Needs aggressive diuresis (continue IV bid lasix w/ zaroxolyn) -Cont ASA and BB -Bowel regimen -Discharge planning to home with family, prob after more fluid off loaded -will need 30 day event monitor @ DC Assessment & Plan (03/26/2023 12:38 PM CDT): -s/p redo AVR (bio) and patch repair of RV per redo sternotomy on 03/09 -Continue post operative care -Ongoing PT/OT/OOB -Needs aggressive diuresis (continue IV bid lasix w/ zaroxolyn) -Cont ASA and BB -Bowel regimen -Discharge planning to home with family, prob after more fluid off loaded Assessment & Plan (03/19/2023 12:51 PM CDT): -s/p redo AVR (bio) and patch repair of RV per redo sternotomy on 03/09 -Continue post operative care -Ongoing PT/OT/OOB -Needs aggressive diuresis (continue IV bid lasix w/ zaroxolyn) -Cont ASA and BB -Bowel regimen -Discharge planning to home with family, prob after more fluid off loaded Assessment & Plan (03/08/2023 4:24 PM CDT): S/p AVR Medtronic Avalus bioprosthetic valve, aortoplasty Prep for redo AVR Assessment & Plan (03/07/2023 2:22 PM CDT): S/p AVR Medtronic Avalus bioprosthetic valve, aortoplasty Prep for redo AVR Assessment & Plan (03/05/2023 5:24 PM CDT): S/p AVR Medtronic Avalus bioprosthetic valve, aortoplasty Prep for redo AVR Assessment & Plan (08/03/2019 6:40 AM CDT): Stable. Continue monitoring Continue cardiac pertinent home medications Acute pain 10/11/2018 Assessment & Plan (03/28/2023 10:59 AM CDT): As expected post-op Continue PRN Tylenol (1st line) w PRN Oxycodone 7.5 mg q 4 hours prn Utilize splinting technique PAIN levels should decrease as she recuperates from this surgery Assessment & Plan (03/27/2023 10:17 AM CDT): As expected post-op Continue PRN Tylenol (1st line) w PRN Oxycodone 7.5 mg q 4 hours prn Utilize splinting technique PAIN levels should decrease as she recuperates from this surgery Assessment & Plan (03/26/2023 1:03 PM CDT): As expected post-op Continue PRN Tylenol (1st line) w PRN Oxycodone 7.5 mg q 4 hours prn Utilize splinting technique PAIN levels should decrease as she recuperates from this surgery Assessment & Plan (03/21/2023 11:26 AM CDT): As expected post-op Continue PRN Tylenol (1st line) w PRN Oxycodone 7.5 mg q 4 hours prn Utilize splinting technique PAIN levels should decrease as she recuperates from this surgery Assessment & Plan (10/20/2018 10:03 AM WOUND CARE RN): Wean Oxycodone prior to discharge Teach splinting Added gabapentin yesterday Assessment & Plan (10/12/2018 7:06 PM WOUND CARE RN): Remaining drowsy post-op with respiratory acidosis. -Lido patches -Schedule Tylenol -Oxy PRN -Dilaudid PRN Increase OXY to 10mg PRN Assessment & Plan (10/12/2018 5:15 AM WOUND CARE RN): Remaining drowsy post-op with respiratory acidosis. -Lido patches -Schedule Tylenol -Will try to avoid narcs at this time Additional Care: Better mentation overnight, given 1 dose Oxy and 1 dose of Dilaudid, tolerating well. Continues to endorsing pain. Will increase frequency as tolerated. Improving ABG Assessment & Plan (10/11/2018 6:55 PM WOUND CARE RN): Expected post-op. Given Fent 200mcg on arrival d/t ventilation issues. Precedex changed to propofol for vent. -Fent PRN -Change fent to dilaudid once pt ready to extubate -Scheduled Tylenol and OXY PRN once able to take PO DM2 (diabetes mellitus, type 2) 10/05/2018 Overview (12/19/2018): 43 yoF with HTN, obesity (BMI 54), and severe admitted after syncopal episode for pre-op evaluation for SAVR. New diagnoses of diabetes. A1c 9.1. Prior history of gestational diabetes. Assessment & Plan (03/28/2023 10:59 AM CDT): Pt denies dx HgbA1c 6.4 (137) Currently on SSI with accu cks QID BS well controlled educator senior clinical met with pt and provided education/supplies for TID testing at discharge Assessment & Plan (03/27/2023 10:17 AM CDT): Pt denies dx HgbA1c 6.4 (137) Currently on SSI with accu cks QID BS well controlled educator senior clinical met with pt and provided education/supplies for TID testing at discharge Assessment & Plan (03/26/2023 1:03 PM CDT): Pt denies dx HgbA1c 6.4 (137) Currently on SSI with accu cks QID BS well controlled educator senior clinical met with pt and provided education/supplies for TID testing at discharge Assessment & Plan (03/23/2023 2:11 PM CDT): Pt denies dx HgbA1c 6.4 (137) Currently on SSI with accu cks QID BS well controlled educator senior clinical met with pt and provided education/supplies for TID testing at discharge Assessment & Plan (03/08/2023 4:24 PM CDT): Pt denies dx HgA1c 6.4 (137) May need SSI post-op Assessment & Plan (03/07/2023 2:21 PM CDT): Pt denies dx HgA1c 6.4 (137) May need SSI post-op Assessment & Plan (03/06/2023 1:04 PM CDT): Pt denies dx HgA1c 6.4 (137) May need SSI post-op Assessment & Plan (08/03/2019 6:39 AM CDT): Patient on metformin. Will hold oral hypoglycemics. Will check hemoglobin A1c, last 1 was about 10 months ago 9.1 Start on Lantus 15 units q.a.m.. Patient currently on systemic steroids. Will titrate the dose up as needed. Start on moderate dose sliding scale insulin. Assessment & Plan (10/26/2018 12:35 PM WOUND CARE RN): Continue lantus and sliding scale Assessment & Plan (10/20/2018 1:21 PM WOUND CARE RN): Over the past 24 hours, her blood glucose readings have been improving with range of 142-176 mg/dl with 86 units TDD insulin coverage. Target inpatient glycemic goal is 100-180 mg/dl. FBG was 142 mg/dl this am. Plan: - Continue Lantus 55 units Q HS - Continue Humalog 7 units AC TID - Continue HDSSI TID, HS, 2am - Monitor blood glucose QID & 0200 Discharge Plan: - Lantus 50 units at hs -Trulicity 0.75 mg weekly -Metformin with gradual increase in dose, starting at 500 mg daily with dinner x 4-5 days, then increasing to 500 mg with breakfast and supper x 4-5 days, then increase to 500 mg with breakfast and 1000 mg with supper x 4-5 days, then increase to 1000 mg bid. If she develops GI side effects, she can decrease by one tab and follow with her response. -Anticipate that Lantus dose will be decreased as OP. Follow up: In endocrinology clinic in 1-2 weeks Recommendations for diabetes management were discussed with the primary team. For questions regarding this patient today, please call Ryann Owens NP, at [phone]. If it is after hours, please call the Diabetes Fellow at [phone]. Assessment & Plan (10/19/2018 3:10 PM WOUND CARE RN): Over the past 24 hours, her blood glucose readings have been uncontrolled with range of 146-244 mg/dl. She does report some dietary indiscretion yesterday with it being Onofre. Target inpatient glycemic goal is 100/180 mg/dl. FBG was 144 mg/dl this am. Plan: - Continue Lantus 55 units Q HS - Continue Humalog 7 units AC TID - Continue HDSSI TID, HS, 2am - Monitor blood glucose QID & 0200 Tentative Discharge Plan: She continues to require a high dose of insulin (92 units TDD yesterday 10/18/18). The initial plan was to discharge with GLP-1 and metformin. However, due to her high insulin requirements, she will benefit from continuing basal insulin at discharge, with further titration as OP. Recommendations: -Lantus 50 units at hs -Trulicity 0.75 mcg weekly (per diabetes education notes, she has been instructed on pen use) -Metformin with gradual increase in dose, starting at 500 mg daily with dinner x 4-5 days, then increasing to 500 mg with breakfast and supper x 4-5 days, then increase to 500 mg with breakfast and 1000 mg with supper x 4-5 days, then increase to 1000 mg bid. If she develops GI side effects, she can decrease by one tab and follow with her response. -Anticipate that Lantus dose will be decreased as OP. Follow up: She wants to follow up with our Endocrinology clinic. Will request an appointment prior to discharge. Recommendations for diabetes management were discussed with the primary team. For questions regarding this patient today, please call the Diabetes Fellow at [phone]. Assessment & Plan (10/14/2018 4:58 PM WOUND CARE RN): Over the previous 24 hours, blood glucose not at goal with range of 159-270 mg/dl with 92 units TDD insulin coverage. Target inpatient blood glucose is 100-180 mg/dl. Fasting blood glucose this morning was 175 mg/dl. As blood glucose remains elevated after meals, we will increase the scheduled mealtime insulin and transition from NPH to once daily Lantus. We will continue to monitor throughout the day and titrate insulin as needed to optimize glycemic control. Plan: - Discontinue NPH 20 units Q8 hours (TDB of 60 = 0.4 unit/kg) - Start Lantus 55 units Q HS (first dose tonight, 10/14/18) - Increase Humalog from 5 units to 7 units POST meals - Continue HDSSI TID, HS, 2am - Monitor blood glucose QID & 0200 Tentative Discharge Plan: We will consider DC home on orals vs GLP1 agonist like Victoza with adding metformin afterward if GLP1 is well controlled. Follow up: She wants to follow up with our Endocrinology clinic. Will request an appointment prior to discharge. Recommendations for diabetes management were discussed with the primary team. For questions regarding this patient today, please call Yoanna Louise NP at [phone]. If after hours, please contact the Diabetes Fellow at [phone].. Assessment & Plan (10/13/2018 4:06 PM WOUND CARE RN): Over the previous 24 hours, blood glucose not at goal with range of 130-199 mg/dl with 11 units TDD insulin coverage. Insulin drip was stopped on 10/12/18 at 1600 after transition to NPH 20 units Q 8 hours. Target inpatient blood glucose is 100-180 mg/dl. Fasting blood glucose this morning was 192 mg/dl. Will continue to monitor glycemic control today and continue same insulin doses to assess insulin requirements. Will titrate insulin as needed. Plan: -Continue NPH 20 units Q8 hours (TDB of 60 = 0.4 unit/kg) -Continue Humalog 5 units POST meals HDSSI TID, HS, 2am Tentative Discharge Plan: We will consider DC home on orals vs GLP1 agonist like Victoza with adding metformin afterward if GLP1 is well controlled. Follow up: She wants to follow up with our Endocrinology clinic. Will request an appointment prior to discharge. For questions regarding this patient today, please call Yoanna Louise NP at [phone]. If after hours, please contact the Diabetes Fellow at [phone].. Assessment & Plan (10/12/2018 7:12 PM WOUND CARE RN): Pt has increased insulin requirement likely due to recent surgery, pressors use and post surgery stress. - ICU team requesting transition off insulin gtt as pt will be transferred out of ICU later today. - Will transition off insulin gtt as following : NPH 20 units Q8 hours (TDB of 60 = 0.4 unit/kg : this is only 50% of the her Basal requirements based on stable rate of 5 unit/hr over night). Likely need to decrease dose as time passes away from surgery. Humalog 5 units POST meals as pt does not have good appetite post surgery HDSSI TID, HS, 2am Will continue to monitor Above discussed with primary team. Please call SATINDER / Inocencia Byrne M.D. At [phone] for any questions. If after 5 PM or weekends, please contact the Diabetes Fellow at [phone], option #1 Tentative Discharge Plan: We will consider DC home on orals vs GLP1 agonist like Victoza with adding metformin afterward if GLP1 is well controlled. Follow up: She wants to follow up with our Endocrinology clinic. Will request an appointment prior to discharge. Recommendations for diabetes management were discussed with the primary team. Assessment & Plan (10/12/2018 7:05 PM WOUND CARE RN): Arrived with insulin gtt at 24u/hr. Pt diagnosed with DMII this admission. HgbA1C ~9. Endo consulted. Remains on insulin gtt @ 5u/hr this am. -f/u with Endo for insulin regimen to transition off gtt Endo recs: -NPH 20u q 8 (stop insulin gtt two hours after NPH administration) -SSI -post prandial if eats >50% of meal Assessment & Plan (10/10/2018 2:59 PM WOUND CARE RN): Over the previous 24 hours, blood glucose improving but not at goal with range of 132-229 mg/dl with 21 units TDD insulin coverage. Blood glucose elevated to 229 mg/dl after she ate M&Ms and Cheetos between lunch and dinner. Target inpatient blood glucose is 100-180 mg/dl. Fasting blood glucose this morning was 176 mg/dl. We plan to continue the same insulin regimen and continue to monitor throughout the night. Plan: - Continue Lantus 10 units qHS - Continue humalog 3 units TIDAC - Continue linagliptin 5 - Continue LDSSI - POC Glu TIDAC, HS, 2 am Tentative Discharge Plan: We will consider DC home on orals vs GLP1 agonist like Victoza with adding metformin afterward if GLP1 is well controlled. Follow up: She wants to follow up with our Endocrinology clinic. Will request an appointment prior to discharge. Recommendations for diabetes management were discussed with the primary team. For questions regarding this patient today, please call Yoanna Louise NP at [phone]. If after hours, please contact the Diabetes Fellow at [phone]. Assessment & Plan (10/07/2018 2:42 PM WOUND CARE RN): Over the previous 24 hours, blood glucose not at goal with range of 124-267 mg/dl with 3 units TDD insulin coverage. Lantus was held yesterday due to NPO status. Target inpatient blood glucose is 100-180 mg/dl. Fasting blood glucose this morning was 176 mg/dl. As glycemia in good margin of safety and patient is insulin naive, we will continue the current insulin regimen and continue to monitor throughout the day. Plan: - Continue Lantus 10 units qHS - Continue humalog 3 units TIDAC - Continue linagliptin 5 - Continue LDSSI - POC Glu TIDAC, HS, 2 am Tentative Discharge Plan: We will consider DC home on orals vs GLP1 agonist like Victoza with adding metformin afterward if GLP1 is well controlled. Follow up: She wants to follow up with our Endocrinology clinic. Will request an appointment prior to discharge. Recommendations for diabetes management were discussed with the primary team. For questions regarding this patient today, please call Yoanna Louise NP at [phone]. If after hours, please contact the Diabetes Fellow at [phone]. Assessment & Plan (10/06/2018 6:01 PM WOUND CARE RN): Over the previous 24 hours, blood glucose not at goal with range of 119-230 mg/dl with 5 units TDD insulin coverage. Target inpatient blood glucose is 100-180 mg/dl. Fasting blood glucose this morning was 156 mg/dl. Lantus was held today as patient refused due to NPO status. We will continue the current diabetes regimen and continue to monitor throughout the day. Plan: - Continue Lantus 10 units qHS - Continue humalog 3 units TIDAC - Continue linagliptin 5 - Continue LDSSI - POC Glu TIDAC, HS, 2 am Tentative Discharge Plan: We will consider DC home on orals vs GLP1 agonist like Victoza with adding metformin afterward if GLP1 is well controlled. Follow up: She wants to follow up with our Endocrinology clinic. Will request an appointment prior to discharge. For questions regarding this patient today, please call Yoanna Louise NP at [phone]. If after hours, please contact the Diabetes Fellow at [phone]. Assessment & Plan (10/20/2018 10:02 AM WOUND CARE RN): New diagnosis of DM Hgb A1c on admission = 9.1 Seen by certified adaptive physical educator- taught glucometer use and trulicity pen. F/u endocrine discharge recs Assessment & Plan (10/05/2018 7:21 PM WOUND CARE RN): 43 yoF with HTN, obesity (BMI 54), and severe admitted after syncopal episode for pre-op evaluation for SAVR. New diagnoses of diabetes. A1c 9.1. Prior history of gestational diabetes. BG 219 yesterday afternoon but today BG 119-164. Will dose ~0.1 units/kg. Plan: Lantus 10 units qHS humalog 3 units TIDAC linagliptin 5 LDSSI POC Glu TIDAC, HS, 2 am Dysmenorrhea 07/13/2018 Overview (07/13/2018): Added automatically from request for surgery [id number] Menorrhagia with regular cycle 06/30/2018 Overview (06/30/2018): Added automatically from request for surgery [id number] Rib sprain, initial encounter 12/17/2017 Current smoker 03/30/2016 Overview (01/29/2017): Current smoker Assessment & Plan (08/03/2019 6:31 AM CDT): Discussed smoking cessation. And strongly Encouraged Will start on Nicoderm patch Moderate persistent asthma with acute exacerbati on 03/30/2016 Overview (01/29/2017): Asthma Assessment & Plan (08/03/2019 6:35 AM CDT): A patient states that had using inhalers symptom relief as well as allergy medications however continued to have cough and wheezing. Currently on systemic steroids. Will ask singular. Consider adding inhaled corticosteroids at the time of discharge with outpatient follow-up with PCP for reassessment. Consider outpatient evaluation with PFTs discharge. Assessment & Plan (10/12/2018 5:22 PM WOUND CARE RN): H/o asthma. Smoking up to admission. -albuterol PRN Assessment & Plan (10/11/2018 6:37 PM WOUND CARE RN): H/o asthma. Smoking up to admission. -albuterol PRN Assessment & Plan (10/05/2018 8:27 AM WOUND CARE RN): Continue the prn albuteral. Fatigue due to excessive exertion Elevated lactic acid level Chest pain, musculoskeletal Assessment & Plan (03/08/2023 4:24 PM CDT): C/p indescribable chest pain-denies radiation of pain, N/V, SOB, diaphoresis Likely musculoskeletal Order [place] for prn use Assessment & Plan (03/07/2023 2:21 PM CDT): C/p indescribable chest pain-denies radiation of pain, N/V, SOB, diaphoresis Likely musculoskeletal Order [place] for prn use Assessment & Plan (03/06/2023 1:03 PM CDT): C/p indescribable chest pain-denies radiation of pain, N/V, SOB, diaphoresis Likely musculoskeletal Order [place] for prn use Left ventricular hypertrophy Moderate asthma with exacerbation Resolved Problems Problem Noted Date Diagnosed Date Resolved Date CAMRYN (acute kidney injury) 03/14/2023 Assessment & Plan (03/20/2023 11:56 AM CDT): Creat peak post op at 2.08 Now trending down- this am 0.92 Increased Lasix for volume overload Daily BMP Will resolve this problem Shortness of breath 02/11/2023 03/20/20 23 Pneumothorax 10/13/2018 10/26/2018 Assessment & Plan (10/20/2018 10:03 AM WOUND CARE RN): Stable on multiple cxr. Asymptomatic Atelectasis 10/11/2018 10/19/2018 Assessment & Plan (10/13/2018 12:41 PM WOUND CARE RN): Small lung volumes on CXR- Continue O2, IS, acepella Assessment & Plan (10/12/2018 5:31 PM WOUND CARE RN): Extubated yesterday evening, required Bipap overnight -Keep sats >92% -Aggressive pulmonary hygiene -OOBCT/ambulate -lasix 20mg for diuresis to achieve negative FB Assessment & Plan (10/12/2018 2:36 AM WOUND CARE RN): Extubated, requiring 6L Nasal cannula. ABG with slight respiratory acidosis -BiPAP now, will plan to keep on overnight -Avoid narcs until more awake -Keep sats >92% -ABG tonight -Aggressive pulmonary hygiene Assessment & Plan (10/11/2018 7:01 PM WOUND CARE RN): Pt arrived intubated and sedated on precedex. Pt not ventilating well on arrival. Mechanically vented with difficulty delivering TVs, End tidal CO2 60s. ABG with resp acidosis. Post-op CXR with atelectasis. ETT ~3.5 cm above the randell. -Fent 200 mcg on arrival -Propofol for sedation -increase RR to 24 -Bronch Bronch with minimal secretions, collapsible airways noted (posterior bronchial/tracheomalacia). Sedated weaned, placed on PSV. End tidals [address] Berger at bedside. Nasal trumpet placed. Pt extubated to ND. Plan for pt to wear nasal CPAP this evening. Leukocytosis 10/11/2018 03/20/2023 Assessment & Plan (03/19/2023 12:52 PM CDT): Remains afebrile All central venous access out Encourage IS/OOB/pulm toilet Monitor CBC daily WBC now down to ~ 8 Will resolve this problem Assessment & Plan (08/03/2019 6:41 AM CDT): Likely secondary to systemic steroids., however noted elevated lactic acid levels Septic workup in progress. Will follow up with culture results Assessment & Plan (10/26/2018 12:38 PM WOUND CARE RN): Wbc 15.3 Continue broad spectrum abx UA negative No drainage from sternal wound Assessment & Plan (10/20/2018 10:03 AM WOUND CARE RN): Remains afebrile WBC stable Assessment & Plan (10/12/2018 5:37 PM WOUND CARE RN): WBC ~17 post-op down trending to ~12. Likely 2/2 to surgery and bypass run. No infectious concerns at this time -augusto-op antibiotics to complete today -cbc with am labs Assessment & Plan (10/11/2018 6:00 PM WOUND CARE RN): WBC ~17 post-op. Likely 2/2 to surgery and bypass run. No infectious concerns at this time -augusto-op antibiotics -cbc with am labs Postoperative hypovolemic shock 10/11/2018 10/13/2018 Assessment & Plan (10/11/2018 7:00 PM WOUND CARE RN): Pt arrived on NE at 0.06. Post-CPB ECHO with under-filled LV, LHV, and but normal biventricular function. Pt received 1.5L crystalloid, 750 albumin, and 475 cell saver. CVP 8-10. HR 90-100 -Albumin 500ml -NE to maintain MAP >65 but SBP <120 BMI 50.0-59.9, adult ([facility]) 10/06/2018 03/19/2023 Overview (07/06/2021): Last Assessment & Plan: Discussed and encouraged weight loss. Also encouraged testing to r/o FLAKO Patient verbalized understanding Assessment & Plan (03/08/2023 4:24 PM CDT): BMI 41.5-morbid obesity Consider wt loss counseling once recovered from surgery Fall precautions Bariatric equipment Assessment & Plan (03/07/2023 2:21 PM CDT): BMI 41.5-morbid obesity Consider wt loss counseling once recovered from surgery Fall precautions Bariatric equipment Assessment & Plan (03/05/2023 5:25 PM CDT): BMI 41.5-morbid obesity Consider wt loss counseling once recovered from surgery Fall precautions Bariatric equipment Assessment & Plan (08/03/2019 6:47 AM CDT): Discussed and encouraged weight loss. Also encouraged testing to r/o FLAKO Patient verbalized understanding Assessment & Plan (10/14/2018 4:54 PM WOUND CARE RN): Complicated DM management Assessment & Plan (10/12/2018 7:13 PM WOUND CARE RN): Complicated DM management Assessment & Plan (10/13/2018 12:41 PM WOUND CARE RN): Fall precautions Using bariatric equipment. High risk medication use 10/05/201811/2018 Assessment & Plan (10/20/2018 1:21 PM WOUND CARE RN): This patient is at high risk for metabolic deterioration related to being on insulin therapy in the setting of multiple co-morbidities. Intensive monitoring is needed to allow for safe, targeted dosing of insulin. Adjustments in dosing will be made based on the blood sugar monitoring and patient variables. Variables affecting blood glycemic control include recent surgery, and pressors use, post surgery stress, high insulin requirements post surgery, low insulin requirements prior to surgery, decreased appetite. Assessment & Plan (10/19/2018 3:00 PM WOUND CARE RN): This patient is at high risk for metabolic deterioration related to being on insulin therapy in the setting of multiple co-morbidities. Intensive monitoring is needed to allow for safe, targeted dosing of insulin. Adjustments in dosing will be made based on the blood sugar monitoring and patient variables. Variables affecting blood glycemic control include recent surgery, and pressors use, post surgery stress, high insulin requirements post surgery, low insulin requirements prior to surgery, decreased appetite. Assessment & Plan (10/14/2018 4:54 PM WOUND CARE RN): This patient is at high risk for metabolic deterioration related to being on insulin therapy in the setting of multiple co-morbidities. Intensive monitoring is needed to allow for safe, targeted dosing of insulin. Adjustments in dosing will be made based on the blood sugar monitoring and patient variables. Variables affecting blood glycemic control include recent surgery, and pressors use, post surgery stress, high insulin requirements post surgery, low insulin requirements prior to surgery, decreased appetite. Assessment & Plan (10/13/2018 4:02 PM WOUND CARE RN): This patient is at high risk for metabolic deterioration related to being on insulin therapy in the setting of multiple co-morbidities. Intensive monitoring is needed to allow for safe, targeted dosing of insulin. Adjustments in dosing will be made based on the blood sugar monitoring and patient variables. Variables affecting blood glycemic control include recent surgery, and pressors use, post surgery stress, high insulin requirements post surgery, low insulin requirements prior to surgery, decreased appetite. Assessment & Plan (10/12/2018 7:13 PM WOUND CARE RN): This patient is at high risk for metabolic deterioration related to being on insulin therapy in the setting of multiple co-morbidities. Intensive monitoring is needed to allow for safe, targeted dosing of insulin. Adjustments in dosing will be made based on the blood sugar monitoring and patient variables. Variables affecting blood glycemic control include recent surgery, and pressors use, post surgery stress, high insulin requirements post surgery, low insulin requirements prior to surgery, decreased appetite. Assessment & Plan (10/10/2018 2:58 PM WOUND CARE RN): This patient is at high risk for metabolic deterioration related to being on insulin therapy in the setting of multiple co-morbidities. Intensive monitoring is needed to allow for safe, targeted dosing of insulin. Adjustments in dosing will be made based on the blood sugar monitoring and patient variables. Assessment & Plan (10/07/2018 2:37 PM WOUND CARE RN): This patient is at high risk for metabolic deterioration related to being on insulin therapy in the setting of multiple co-morbidities. Intensive monitoring is needed to allow for safe, targeted dosing of insulin. Adjustments in dosing will be made based on the blood sugar monitoring and patient variables. Assessment & Plan (10/06/2018 5:57 PM WOUND CARE RN): This patient is at high risk for metabolic deterioration related to being on insulin therapy in the setting of multiple co-morbidities. Intensive monitoring is needed to allow for safe, targeted dosing of insulin. Adjustments in dosing will be made based on the blood sugar monitoring and patient variables. Assessment & Plan (10/05/2018 7:22 PM WOUND CARE RN): This patient is at high risk for metabolic deterioration related to being on insulin therapy in the setting of multiple co-morbidities. Intensive monitoring is needed to allow for safe, targeted dosing of insulin. Adjustments in dosing will be made based on the blood sugar monitoring and patient variables. Aortic stenosis 09/29/2018 03/19/2023 Overview (09/29/2018): Added automatically from request for surgery [id number] Assessment & Plan (03/08/2023 4:24 PM CDT): Echocardiographic evidence of severe -pk grad 117 mmHg Prep for redo AVR Continue diuresis Monitor for syncope - no syncope but had increased chest pain last, now at baseline, trops insignificant CT CAP non-contrast completed this morning LHC this afternoon OR tomorrow Assessment & Plan (03/07/2023 2:21 PM CDT): Echocardiographic evidence of severe -pk grad 117 mmHg Prep for redo AVR Continue diuresis Monitor for syncope - no syncope but had increased chest pain last, now at baseline, trops insignificant CT CAP non-contrast ordered LHC ordered for Wednesday OR planned for 03/09 Assessment & Plan (03/06/2023 1:03 PM CDT): Echocardiographic evidence of severe -pk grad 117 mmHg Prep for redo AVR Continue diuresis Monitor for syncope CT CAP non-contrast ordered LHC ordered for Wednesday OR planned for 03/09 Assessment & Plan (08/03/2019 6:36 AM CDT): Patient is status post aortic valve repair Stable. Continue monitoring. Continue cardiac pertinent home medications. Optimize blood pressure control- hydralazine 10 mg as needed for elevated systolic blood pressure above 160. Assessment & Plan (10/26/2018 12:38 PM WOUND CARE RN): s/p bio AVR w/ aortoplasty with a 25mm Avalus valve 10/11/18 Was discharged on 10/21/18 Presented to her local ED with left pain under her breast Was admitted to [facility] due to murmur heard on exam and WBC -placed on abx -TTE ordered Assessment & Plan (10/20/2018 1:21 PM WOUND CARE RN): Will require good glycemic control to facilitate healing after surgery. Assessment & Plan (10/19/2018 3:00 PM WOUND CARE RN): Will require good glycemic control to facilitate healing after surgery. Assessment & Plan (10/14/2018 4:54 PM WOUND CARE RN): Will require good glycemic control to facilitate healing after surgery. Assessment & Plan (10/13/2018 4:03 PM WOUND CARE RN): Will require good glycemic control to facilitate healing after surgery. Assessment & Plan (10/12/2018 7:13 PM WOUND CARE RN): Will require good glycemic control to facilitate healing after surgery. Assessment & Plan (10/12/2018 5:22 PM WOUND CARE RN): S/p bio AVR and aortoplasty. Post-op care to include: - DVT ppx: SCDs to BLE and SQH - infection ppx: augusto-op antibiotics to complete today - Nutrition plan: ADAT - Bowel regimen: colace and senna - PT to evaluate and treat - Metoprolol 6.25 Assessment & Plan (10/11/2018 5:58 PM WOUND CARE RN): S/p bio AVR and aortoplasty. Post-op care to include: - DVT ppx: SCDs to BLE and SQH POD 1 if minimal bleeding - infection ppx: augusto-op antibiotics - GI ppx: H2-discontinues once extubated - Nutrition plan: ADAT - Bowel regimen: colace and senna - Adult dose insulin protocol for blood sugar management - PT to evaluate and treat Assessment & Plan (10/10/2018 2:58 PM WOUND CARE RN): Will require good glycemic control to facilitate healing after surgery. Assessment & Plan (10/07/2018 2:44 PM WOUND CARE RN): Will require good glycemic control to facilitate healing after surgery. Assessment & Plan (10/20/2018 10:01 AM WOUND CARE RN): S/p bio AVR POD #8 Continue ASA, beta anita. Sternal drainage, betadine paint, Continue bactrim DS. Pelvic pain in female 06/30/20182017 Overview (06/30/2018): Added automatically from request for surgery [id number] Acute bronchitis 12/17/2017 10/05/2018 Bronchospasm with bronchitis, acute 12/17/2017 10/05/2018 Chest wall muscle strain, initial encounter 12/17/2017 10/05/2018 Bloody discharge from right nipple 08/18/2017 10/05/2018 Knee pain 03/30/2016 10/26/2018 Overview (01/29/2017): Knee pain Uncontrolled type 2 diabetes mellitus with hyperglycemia 03/05/2023 Immunizations Immunization Administration Dates Next Due Pneumococcal Conjugate PCV 13 02/17/2019 Surgical History Surgery Date Site/Laterality Comments OTHER SURGICAL HISTORY 10/25/1996 - 10/24/1997 : OTHER SURGICAL HISTORY 10/25/2001 - 10/24/2002 : OTHER SURGICAL HISTORY 10/25/2004 - 10/24/2005 : OTHER SURGICAL HISTORY 10/25/2005 - 10/24/2006 : KNEE ARTHROSCOPY W/ LATERAL RELEASE Bilateral 2003 left knee 05/2018 right knee SECTION BREAST SURGERY 09/23/2017 Right Right breast Terminal Duct Excision CARDIAC VALVE SURGERY 09/24/2018 - 10/24/2018 aortic valve replacement ([place]) US GUIDED BIOPSY LYMPH NODE SUPERFICIAL LEFT 07/24/2021 N/A BREAST BIOPSY 07/24/2021 Right Medical History Medical History Date Comments Hx Other Medical Right knee surg . 2003; Comments: [facility] 03/31/2016 - Hx Other Medical 2005; Comments: [facility] 03/31/2016 - Hx Other Medical Left knee arthr oscopic medial meniscectomy on 04-21; Comments: [facility] 05/11/2016 - Hypertension Hypertension Asthma Asthma; Comments : [facility] 08/20/2016 - Hx Other Medical breast problems ; Comments: [facility] 08/20/2016 - Hx Other Medical ; Outc ome: 36W0D week 7lb(s) 9 oz Male Hx Other Medical ; Outc ome: 38W0D week 8lb(s) 5 oz Female Hx Other Medical ; Outc ome: 40W0D week 7lb(s) 13 oz Female Hx Other Medical ; Outc ome: 40W0D week 9lb(s) 13 oz Male Menstrual periods, abnormal Heav y periods and pain Obstructive sleep apnea Arthritis Aortic stenosis s/p bovine aorti c valve replacement BMI 50.0-59.9, adult ([facility] ([facility]) 10/06/2018 Last Assessment & Plan: Discussed and encouraged weight loss. Also encouraged testing to r/o FLAKO Patient verbalized understanding Leukocytosis 10/11/2018 Shortness of breath 02/11/2023 CAMRYN (acute kidney injury) 03/14/2023 Family History Medical History Relation Name Comments Alzheimer's disease Maternal Grandfather Mental illness Maternal Grandfather Alzheimer's disease Maternal Grandmother Anemia Maternal Grandmother Hypertension Maternal Grandmother Hyperte nsion; Mental illness Maternal Grandmother Arthritis Mother Cancer Mother Rashes / Skin problems Mother Uterine cancer Mother Cancer, uteri ne; Other Other Family history of hypertension, cancer and arthritis.; Relation Name Status Comments Maternal Grandfather Maternal Grandmother Mother Other Social History Tobacco Use Types Packs/Day Years Used Date Smoking Tobacco: Heavy Smoker Cigarettes Smokeless Tobacco: Never Tobacco Cessation:Ready to Q uit: Not Asked; Counseling Given: Not Answered Comments:Smoking History Packs/day: 30 Cigarettes Alcohol Use Standard Drinks/Week Comments Yes 0 (1 standard drink = 0.6 oz pur e alcohol) Rarely Humiliation, Afraid, Rape, and Kick questionnair e Answer Date Recorded Within the last year, have y ou been afraid of your partner or ex-partner? No 02/11/2023 Within the last year, have y ou been humiliated or emotionally abused in other ways by your partner or ex-partner? No Within the last year, have y ou been kicked, hit, slapped, or otherwise physically hurt by your partner or ex-partner? No 02/11/2023 Within the last year, have y ou been raped or forced to have any kind of sexual activity by your partner or ex-partner? No 02/11/2023 Social Connection and Isolat ion Panel [NHANES] Answer Date Recorded In a typical week, how many times do you talk on the phone with family, friends, or neighbors? More than three times a week 03/11/2023 How often do you get togethe r with friends or relatives? More than three times a week 03/11/2023 How often do you attend formerly [facility] or jain services? Never 03/11/2023 Do you belong to any clubs o r organizations such as buddhism groups, unions, fraternal or athletic groups, or school groups? No 03/11/2023 How often do you attend meet ings of the clubs or organizations you belong to? Never 03/11/2023 Are you , , di vorced, , never , or living with a partner? 03/11/2023 AUDIT-C Answer Date Recorded Q1: How often do you have a drink containing alcohol? 4 or more times a week 02/11/2023 Q2: How many drinks containi ng alcohol do you have on a typical day when you are drinking? 1 or 2 3 Q3: How often do you have si x or more drinks on one occasion? Monthly 02/11/2023 Overall Financial Resource Strain (CARDIA) Answe r Date Recorded How hard is it for you to pa y for the very basics like food, housing, medical care, and heating? Somewhat hard 03/11/2023 PHQ-2 Answer Date Recorded PHQ-2 Total Score (If total score is 3 or more points, staff should administer the PHQ-9) 0 03/27/2023 [facility] - Occupational Stress Questionnaire Answer Date Recorded Do you feel stress - tense, restless, nervous, or anxious, or unable to sleep at night because your mind is troubled all the time - these days? Rather much 02/11/2023 Exercise Vital Sign Answer Date Recorde d On average, how many days pe r week do you engage in moderate to strenuous exercise (like a brisk walk)? 5 days 02/11/2023 On average, how many minutes do you engage in exercise at this level? 30 min 02/11/2023 Hunger Vital Sign Answer Date Recorded Within the past 12 months, y ou worried that your food would run out before you got the money to buy more. Never true 03/11/20 23 Within the past 12 months, t he food you bought just didn't last and you didn't have money to get more. Never true 03/11/2023 PRAPARE - Transportation Answer Date Re corded In the past 12 months, has l ack of transportation kept you from medical appointments or from getting medications? No 02/22 In the past 12 months, has l ack of transportation kept you from meetings, work, or from getting things needed for daily living? No 03/11/2023 Housing Stability Vital Sign Answer Tavo e Recorded In the last 12 months, was t here a time when you were not able to pay the mortgage or rent on time? No 03/11/2023 In the last 12 months, how many places have you lived? 1 03/11/2023 In the last 12 months, was t here a time when you did not have a steady place to sleep or slept in a senior living (including now)? No 03/11/2023 Personal Safety Answer Date Recorded Have you ever been in or are you currently in a harmful physical or emotional relationship or is someone making you feel afraid or unsafe? Denies 05/07/2024 Comments No Sex and Gender Information Value Date Recorded Sex Assigned at Not on file Legal Sex Female 12:14 AM WOUND CARE RN Gender Identity Not on file Sexual Orientation Not on file Obstetrics History Para Term AB IAB SAB Ectopic Multiple Livin g Live Births 4 4 4 4 4 Date Outcome GA Total Labor Labor/2nd/3rd Weight Sex Type Anes PTL Maria Fernanda A1 A5 Name Clin 1996 Term 3.43 kg (7 lb 9 oz) F Vag-S pont Living 2001 Term 3.771 kg (8 lb 5 oz) F Vag-S pont Living 2004 Term 3.544 kg (7 lb 13 oz) F Vag-S pont Living 2005 Term 4.167 kg (9 lb 3 oz) M CS-Un spec Living Last Filed Vital Signs Vital Sign Reading Time Taken Comments Blood Pressure 129/87 05/08/2024 1:15 AM CDT Pulse 72 05/08/2024 1:15 AM CDT Temperature 36.3 C (97.3 F) 06/18/2023 6:53 PM CDT Respiratory Rate 12 05/08/2024 1:15 AM CDT Oxygen Saturation 99% 05/08/2024 1:15 AM CDT Inhaled Oxygen Concentration - - Weight 117.9 kg (260 lb) 05/07/2024 11:27 PM CDT Height 167.6 cm (5' 6 ) 05/07/2024 11:27 PM CDT Body Mass Index 41.97 05/07/2024 11:27 PM CDT Plan of Treatment Health Maintenance Due Date Last Done Comments Albumin Creatinine Ratio, Urine 1977 Colon Cancer Screening-Colonoscopy 1977 Dilated Eye Exam 1977 Foot Exam 1977 DTaP/Tdap/Td Vaccine (1 - Tdap) 1988 Hepatitis B Screening 1995 Pneumococcal vaccine <65 (2 of 2 - PPSV23) 04/14/2019 02/17/2019 Cervical Cancer Screening 05/03/2019 05/03/2018 Regular Well Visit/Exam 18-64 05/03/2019 05/03/2018 Breast Cancer Screening-Mammogram 07/14/2022 021, 09/01/2016 Hemoglobin A1C 09/05/2023 03/05/2023, 01/24, 08/03/2019, Additional history exists Depression Screening 03/05/2024 03/05/2023, 02/10/2023, 02/10/2023, Additional history exists Lipid Panel 03/05/2024 03/05/2023, 01/24, 02/17/2019, Additional history exists eGFR 05/07/2025 05/07/2024, 05/26, 04/05/2023, Additional history exists Influenza Vaccine (Season Ended) 2025 Hepatitis C Screening Completed 03/09/2023 Medical Devices Implanted Type Area Hvac Technician Residential Device Identifier Shelf Expiration Date Model / Serial / Lot Bard Peripheral Vascular [id number] Ultraclip Bard 17ga 12cm 2 Trigger Permanent Ultrasound - [id number] - [id number] Implanted:Qty: 1 on 07/24/2021 by Pepito Batista MD at [facility] Breast Right: Breast Bard Peripheral Vascular 04/21/2024 [id number] / [id number] / Description:Implanted Right Breast Retroareolar Bard Peripheral Vascular [id number] Ultraclip Bard 17ga 10cm 2 Trigger Permanent Ultrasound - [id number] - [id number] Implanted:Qty: 1 on 07/24/2021 by Pepito Batista MD at [facility] Breast Right: Breast Bard Peripheral Vascular 04/21/2024 [id number] / [id number] / Description:Right Axillary L ymph Node Valve Aortic 25mm 400 Series Ltxfre - [id number] - [id number] Implanted:Qty: 1 on 10/11/2018 by Eunice Soto MD at [facility] Other - see comments [employer] 07/22/2019 [id number] / [id number] / Description:Aortic Valve Medtronic Card Vasc Surgery [id number] Streamline 53cm Temporary Bipolar Coaxial Myocardium Lead Pacing Latex Free - [id number] - [id number] Implanted:Qty: 1 on 10/11/2018 by Eunice Soto MD at [facility] Medtronic Card Vasc Surgery 08/17/2020 [id number] / [id number] / Description:Temporary Ventri cular pacing wire [employer] Inspiris Resilia Leaflet Aortic Valve 25mm [id number] - [id number] - [id number] Implanted:Qty: 1 on 03/09/2023 by Eunice Soto MD at [facility] N/A: Chest [employer] [id number] 11/15/2026 [id number] / [id number] / Wl [employer] 15x5cm Thk.6mm Patch Cardiovascular [employer] [id number] - [id number] - [id number] Implanted:Qty: 1 on 03/09/2023 by Eunice Soto MD at [facility] N/A: Chest Wl [employer] [id number] 07/28/2026 [id number] / [id number] / Procedures Procedure Name Priority Date/Time Associated Diagnosis Comments EGFR STAT 05/07/2024 11:34 PM CDT HEPATITIS C ANTIBODY Routine 03/09/2023 1:05 PM CDT HEMOGLOBIN A1C Routine 03/05/2023 6:02 PM CDT LIPID PANEL Routine 03/05/2023 6:02 PM CDT DIAGNOSTIC MAMMOGRAM BILATERAL W ELIZA Schedule Routine, Read Routine (OP Routine) 07/14/2021 3:09 PM CDT Lump of right breast Nipple discharge in female Breast pain IMAGING PAP AND HPV MRNA E6/E7 Routine 05/03/2018 10:56 AM CDT Pelvic and perineal pain Menorrhagia with regular cycle Encounter for gynecological examination with abnormal finding from Last 3 Months or Most Recently Relevant to Health Maintenance Results * eGFR (05/07/2024 11:34 PM CDT) eGFR >90 >=60 mL/min/1. 73 m2 Comment: Interpretive Data Reference Interval Normal >/= 90 mL/min/1.73m2 Mildly decreased* 60 - 89 mL/min/1.73m2 Mildly to moderately decreased 45 - 59 mL/min/1.73m2 Moderately to severely decreased 30 - 44 mL/min/1.73m2 Severely decreased 15 - 29 mL/min/1.73m2 Kidney Failure < 15 mL/min/1.73m2 *Relative to young adult level Estimated glomerular filtration rate is determined by the 2020 CKD-EPI equation recommended by the National Kidney Foundation (A Unifying Approach to GFR Estimation: Recommendations of the NKF-ASK Task Force on Reassessing the Inclusion of Race in Diagnosing Kidney Disease, JASN 2020). The CKD-EPI equation should not be used for patients with unstable renal function and has not been validated in children and those over 70. Current interpretive data was last reviewed 2021. Blood 05/07/2024 11:3 4 PM CDT 05/07/2024 11:36 PM CDT us Gera Askew MD LAB BLOOD ORDERABLE S Final Result [facility] Department [place] [employer] [place] [address] * Hepatitis C antibody (03/09/2023 1:05 PM CDT) Hep C Ab Nonreactive Nonreactive [facility] Comment:Antibodies to HCV no t detected. Does NOT exclude the possibility of recent exposure to HCV. Current interpretive data was last revised on 22 Blood 03/09/2023 1:05 PM CDT 03/09/2023 1:39 PM CDT us Jori Negron MD LAB MICROBIOLOGY - GENERAL WOODY RAI Final Result Performing Organization Address [facility] de Phone Number [facility] Department [place] [address] * (ABNORMAL) Hemoglobin A1c (03/05/2023 6:02 PM CDT) Hgb A1C 6.4(H) 4.0 - 5.6 % [facility] Estimated Average Glucose 137 mg/dL [facility] Comment: The ADA recommends reporting an estimated Average Glucose (eAG) with all Hemoglobin A1c results using the equation derived from a study of 507 normal and diabetic adults. Minority populations were underrepresented and children were not included. (Diabetes Care 2020; 43(S1): S66-S76). The eAG is not equivalent to a fasting glucose. Blood 03/05/2023 6:02 PM CDT 03/05/2023 6:21 PM CDT us Cheryl Watters NP LAB BLOOD ORDERABLES Final Resul t Performing Organization Address [facility] Co de Phone Number [facility] Department [place] [address] * (ABNORMAL) Lipid panel (03/05/2023 6:02 PM CDT) Cholesterol 130 30 - 199 mg/dL [facility] Comment: Interpretive Data Ages < or = 19 years Acceptable: <170 mg/dL Borderline high: 170-199 mg/dL High: >or= 200 mg/dL Ages > or = 20 years Desirable: <200 mg/dL Borderline high: 200-239 mg/dL High: >or= 240 mg/dL Literature References: 1. Expert Panel on Integrated Guidelines for Cardiovascular Health and Risk Reduction in Children and Adolescents. Pediatrics 2011;128:S213 2. NCEP Expert Panel. Circulation 2004;110:227 Current Interpretive Data was last revised on 2018. Triglycerides 88 <=149 mg/dL [facility] Comment: Interpretive Data Ages < or = 9 years Acceptable: <75 mg/dL Borderline high: 75-99 mg/dL High: >or= 100 mg/dL Ages 10 to 20 years Acceptable: <90 mg/dL Borderline high: 90-129 mg/dL High: >or= 130 mg/dL Ages > or = 20 years Desirable: <150 mg/dL Borderline high: 150-199 mg/dL High: 200-499 mg/dL Very high: >or= 499 mg/dL Literature References: 1. Expert Panel on Integrated Guidelines for Cardiovascular Health and Risk Reduction in Children and Adolescents. Pediatrics 2011;128:S213 2. NCEP Expert Panel. Circulation 2004;110:227 Current Interpretive Data was last revised on 2018. HDL 39(L) >=40 mg/dL [facility] Comment: Interpretive Data Ages < or = 19 years Acceptable: >45 mg/dL Borderline low: 40-45 mg/dL Low: <40 mg/dL Ages > or = 20 years Desirable: >or= 60 mg/dL Low: <40 mg/dL Literature References: 1. Expert Panel on Integrated Guidelines for Cardiovascular Health and Risk Reduction in Children and Adolescents. Pediatrics 2011;128:S213 2. NCEP Expert Panel. Circulation 2004;110:227 Current Interpretive Data was last revised on 2018. LDL, calculated 73 <=129 mg/dL [facility] Comment: Interpretive Data Ages < or = 19 years Acceptable: <110 mg/dL Borderline high: 110-129 mg/dL High: >or= 130 mg/dL Ages > or = 20 years Optimal: <100 mg/dL Near optimal: 100-129 mg/dL Borderline high: 130-159 mg/dL High: >160 mg/dL Literature References: 1. Expert Panel on Integrated Guidelines for Cardiovascular Health and Risk Reduction in Children and Adolescents. Pediatrics 2011;128:S213 2. NCEP Expert Panel. Circulation 2004;110:227 Current Interpretive Data was last revised on 2018. Non-HDL Cholesterol 91 mg/dL [facility] Comment: Interpretive Data Ages < or = 19 years Acceptable: <120 mg/dL Borderline high: 120-144 mg/dL High: >145 mg/dL Ages > or = 20 years When triglycerides are >200 mg/dL, Non-HDL cholesterol is a secondary target of therapy with treatment goals that are 30 mg/dL greater than the LDL cholesterol target. Literature References: 1. Expert Panel on Integrated Guidelines for Cardiovascular Health and Risk Reduction in Children and Adolescents. Pediatrics 2011;128:S213 2. NCEP Expert Panel. Circulation 2004;110:227 Current Interpretive Data was last revised on 2018. Chol/HDL ratio 3 [facility] Blood 03/05/2023 6:02 PM CDT 03/05/2023 6:21 PM CDT us Cheryl Watters NP LAB BLOOD ORDERABLES Final Resul t [facility] Department [place] [address] * (ABNORMAL) DIAGNOSTIC MAMMOGRAM BILATERAL W ELIZA (07/14/2021 3:09 PM CDT) Anatomical Region Laterality Modality Breast Bilateral Mammography 07/14/2021 4:02 PM CDT Impressions 07/14/2021 4:02 PM CDT 1. The irregular 3.1 cm mass at the painful, palpable site of concern in the subareolar right breast is suspicious for malignancy. Differential considerations include mastitis with a developing breast abscess. Ultrasound-guided biopsy of this mass is recommended. Antibiotic therapy should also be considered. 2. The right axillary lymph node with cortical thickening is suspicious for malignancy. Ultrasound-guided biopsy of this lymph node is recommended. 3. No mammographic evidence of malignancy in the left breast. Routine screening mammography of the left breast is recommended in 1 year. BI-RADS: 4C - Suspicious for malignancy. Biopsy is recommended. I discussed the findings and impression with the patient at the time of the examination. This facility will contact the referring clinician's office to communicate the impression above and obtain an order for the biopsy. The patient will then be contacted to schedule the biopsy appointment. Electronically signed by: Nik Mckinnon M.D. Narrative 07/14/2021 4:02 PM CDT EXAMINATION: DIAGNOSTIC MAMMOGRAM BILATERAL W ELIZA, US BREAST RIGHT LIMITED ORDERING HEALTHCARE PROVIDER: BERTHA ORTEGA HISTORY: 45-year-old female presents for evaluation of bloody and white right nipple discharge for 2 weeks and a painful, palpable lump in the subareolar right breast for one week. Routine screening mammography of the left breast. COMPARISON: Mammography from 08/03/2017 and 09/01/2016. Ductography from 2017. TECHNIQUE: CC and MLO views of the bilateral breasts were obtained with digital technique using breast tomosynthesis with C view. Computer aided detection was utilized. Multiple ultrasound images of the right breast were obtained. FINDINGS: MAMMOGRAPHIC FINDINGS DENSITY: There are scattered fibroglandular elements in the bilateral breasts. BREASTS: A radiopaque marker is placed over the painful, palpable site of concern in the subareolar right breast. There is an irregular 2.9 cm mass with associated skin thickening underlying the radiopaque marker. There are no other suspicious findings in either breast. ULTRASOUND FINDINGS Targeted ultrasound of the painful, palpable site of concern in the subareolar right breast demonstrates an irregular 3.1 x 1.8 x 3.0 cm hypoechoic mass with angular margins and evidence of internal blood flow on color Doppler imaging. There is evidence of skin thickening overlying this mass. Targeted ultrasound of the right axilla demonstrates a right axillary lymph node with cortical thickening, measuring up to 5 mm in thickness. us Bertha Ortega [facility] IMG MAMMO PROCEDURES Ce l Result * Imaging Pap and HPV mRNA E6/E7 (05/03/2018 10:56 AM CDT) Report status CANCELED [facility] Comment:Result canceled by toyin bhagat ancillary CLINICAL INFORMATION: [facility] Comment:Information not prov ided LMP [facility] Comment:INFORMATION NOT PROV IDED Previous Pap [facility] Comment:INFORMATION NOT PROV IDED Prev. Bx [facility] Comment:INFORMATION NOT PROV IDED SOURCE: [facility] Comment:Information not prov ided Pap, specimen adequacy [facility] Comment: Satisfactory for evaluation. Endocervical/transformation zone component present. Age and/or menstrual status not provided Pap, general categorization CANCELED [facility] Comment:Result canceled by toyin bhagat ancillary HPV interp [facility] Comment:Negative for intraep ithelial lesion or malignancy. Infection: CANCELED [facility] - Comment:Result canceled by t he ancillary COMMENTS [facility] - Comment: This Pap test has been evaluated with computer assisted technology. Pneumatic [facility] - Comment: AMW, CT(ASCP) CT screening location: [place] [address] [place] [address] Review manager data CANCELED [facility] - Comment:Result canceled by t he ancillary Pathologist CANCELED [facility] - Comment:Result canceled by t he ancillary Comment [facility] - Comment: EXPLANATORY NOTE: The Pap is a screening test for cervical cancer. It is not a diagnostic test and is subject to false negative and false positive results. It is most reliable when a satisfactory sample, regularly obtained, is submitted with relevant clinical findings and history, and when the Pap result is evaluated along with historic and current clinical information. Human papillomavirus RNA, High Risk E6/E7 Not Detected Not Detected [facility] Comment: This test was performed using the APTIMA HPV Assay ([employer] This assay detects E6/E7 viral messenger RNA (mRNA) from 14 high-risk HPV types (16,18,31,33,35,39,45,51,52,56,58,59,66,68). The analytical performance characteristics of this assay have been determined by [facility]. The modifications have not been cleared or approved by the FDA. This assay has been validated pursuant to the CLIA regulations and is used for clinical purposes. Endocervical/vag inal 05/03/2018 10:56 AM CDT 05/04/2018 6:19 AM CDT Narrative Resulting Agency Comment Performing Organization Information: Site ID: [place] Name: [facility] Address: [address] [place] [address] Director: Jamie Morales D.O., MPH Site ID: [facility] Address: [address] [place] [address] Director: Arnold Diaz Abdirahman Kirkpatrick MD LAB PATHOLOGY ORDERABLES F inal Result [facility] [place] [facility] [place] from Last 3 Months or Most Recently Relevant to Health Maintenance Insurance [employer] [facility] CHOICE [employer]US [facility] HMO/PPO Address: [address] [address] [place] [address] Advance Directives For more information, please contact: [phone] Documents on File Type Date Recorded Patient Christian Counselor Expl anation ADVANCE DIRECTIVE 04/01/2023 11:13 AM POWER OF TELEPHOTO ENGINEER-MEDICAL ADVANCE DIRECTIVE 03/15/2023 11:28 AM RUPAL R OF TELEPHOTO ENGINEER-MEDICAL * Full Code (Latest Code Status on File) Date Activated Date Inactivated Comments 03/05/2023 5:09 PM 03/29/2023 6:59 PM * Full Code Date Activated Date Inactivated Comments 02/11/2023 4:47 AM 02/13/2023 3:56 PM * Full Code Date Activated Date Inactivated Comments 08/03/2019 12:27 AM 08/05/2019 12:35 AM * Full Code Date Activated Date Inactivated Comments 03/24/2019 3:31 AM 03/25/2019 2:24 PM * Full Code Date Activated Date Inactivated Comments 10/25/2018 1:56 PM 10/27/2018 6:42 PM Care Teams Med Surg Rn Relationship Specialty Start Date End Date oJhn Lomax MD PCP - General 08/20/16 Atilio Carl MD Referring Physician Cardiology 09/02/18 Eunice Soto MD [id number] [place] [address] Surgeon Cardiothoracic Surgery 03/29/23 Sae Hawkins MD PhD [id number] [place] [address] Consulting Physician Cardiology 03/29/23
--- OUTSIDE RECORDS SUMMARY | 2025-02-19 21:37 | XMS_ITS | Referral Summary ---
Author Organization [facility] Building [address] Address [address] [place] [address] Care Team Providers Care Design Director Name Role Phone John Lomax MD Primary Care Provider + Atilio Carl MD Unavailable [phone] Eunice Soto MD Unavailable Sae Hawkins MD PhD Unavailable + Allergies Active Allergy Reactions Criticality Noted Date Comments Arab Oil Anaphylaxis High Cephalosporins Nausea & Vomiting [...] surgery Assessment & Plan (10/20/2018 10:03 AM COTTON CONVERTER): Wean Oxycodone prior to discharge Teach splinting Added gabapentin yesterday Assessment & Plan (10/12/2018 7:06 PM COTTON CONVERTER): Remaining drowsy post-op with respiratory acidosis. -Lido patches -Schedule Tylenol -Oxy PRN -Dilaudid PRN Increase OXY to 10mg PRN Assessment & Plan (10/12/2018 5:15 AM COTTON CONVERTER): Remaining drowsy post-op with respiratory acidosis. -Lido patches -Schedule Tylenol -Will try to avoid narcs at this time Additional Care: Better mentation overnight, given 1 dose Oxy and 1 dose of Dilaudid, tolerating well. Continues to endorsing pain. Will increase frequency as tolerated. Improving ABG Assessment & Plan (10/11/2018 6:55 PM COTTON CONVERTER): Expected post-op. Given Fent 200mcg on arrival [...] with accu cks QID BS well controlled early childhood special educator met with pt and provided education/supplies for TID testing at discharge Assessment & Plan (03/27/2023 10:17 AM CDT): Pt denies dx HgbA1c 6.4 (137) Currently on SSI with accu cks QID BS well controlled early childhood special educator met with pt and provided education/supplies for TID testing at discharge Assessment & Plan (03/26/2023 1:03 PM CDT): Pt denies dx HgbA1c 6.4 (137) Currently on SSI with accu cks QID BS well controlled early childhood special educator met with pt and provided education/supplies for TID testing at discharge Assessment & Plan (03/23/2023 2:11 PM CDT): Pt denies dx HgbA1c 6.4 (137) Currently on SSI with accu cks QID BS well controlled early childhood special educator met with pt and provided education/supplies for [...] insulin. Assessment & Plan (10/26/2018 12:35 PM COTTON CONVERTER): Continue lantus and sliding scale Assessment & Plan (10/20/2018 1:21 PM COTTON CONVERTER): Over the past 24 hours, her blood [...] regarding this patient today, please call Ryann Oewns NP, at [phone]. If it is after hours, please call the Diabetes Fellow at [phone]. Assessment & Plan (10/19/2018 3:10 PM COTTON CONVERTER): Over the past 24 hours, her blood [...] today, please call the Diabetes Fellow at [phone]. Assessment & Plan (10/14/2018 4:58 PM COTTON CONVERTER): Over the previous 24 hours, blood glucose [...] today, please call Yoanna Louise NP at [phone]. If after hours, please contact the Diabetes Fellow at [phone].. Assessment & Plan (10/13/2018 4:06 PM COTTON CONVERTER): Over the previous 24 hours, blood glucose [...] today, please call Yoanna Louise NP at [phone]. If after hours, please contact the Diabetes Fellow at [phone].. Assessment & Plan (10/12/2018 7:12 PM COTTON CONVERTER): Pt has increased insulin requirement likely due [...] call SATINDER / Inocencia Byrne M.D. At [phone] for any questions. If after 5 PM or weekends, please contact the Diabetes Fellow at [phone], option #1 Tentative Discharge Plan: We will consider DC home on orals vs GLP1 agonist like Victoza with adding metformin afterward if GLP1 is well controlled. Follow up: She wants to follow up with our Endocrinology clinic. Will request an appointment prior to discharge. Recommendations for diabetes management were discussed with the primary team. Assessment & Plan (10/12/2018 7:05 PM COTTON CONVERTER): Arrived with insulin gtt at 24u/hr. Pt diagnosed with DMII this admission. HgbA1C ~9. Endo consulted. Remains on insulin gtt @ 5u/hr this am. -f/u with Endo for insulin regimen to transition off gtt Endo recs: -NPH 20u q 8 (stop insulin gtt two hours after NPH administration) -SSI -post prandial if eats >50% of meal Assessment & Plan (10/10/2018 2:59 PM COTTON CONVERTER): Over the previous 24 hours, blood glucose [...] today, please call Yoanna Louise NP at [phone]. If after hours, please contact the Diabetes Fellow at [phone]. Assessment & Plan (10/07/2018 2:42 PM COTTON CONVERTER): Over the previous 24 hours, blood glucose [...] today, please call Yoanna Louise NP at [phone]. If after hours, please contact the Diabetes Fellow at [phone]. Assessment & Plan (10/06/2018 6:01 PM COTTON CONVERTER): Over the previous 24 hours, blood glucose [...] today, please call Yoanna Louise NP at [phone]. If after hours, please contact the Diabetes Fellow at [phone]. Assessment & Plan (10/20/2018 10:02 AM COTTON CONVERTER): New diagnosis of DM Hgb A1c on admission = 9.1 Seen by senior health educator- taught glucometer use and trulicity pen. F/u endocrine discharge recs Assessment & Plan (10/05/2018 7:21 PM COTTON CONVERTER): 43 yoF with HTN, obesity (BMI 54), [...] (07/13/2018): Added automatically from request for surgery [id number] Menorrhagia with regular cycle 06/30/2018 Overview (06/30/2018): Added automatically from request for surgery [id number] Rib sprain, initial encounter 12/17/2017 Current smoker [...] discharge. Assessment & Plan (10/12/2018 5:22 PM COTTON CONVERTER): H/o asthma. Smoking up to admission. -albuterol PRN Assessment & Plan (10/11/2018 6:37 PM COTTON CONVERTER): H/o asthma. Smoking up to admission. -albuterol PRN Assessment & Plan (10/05/2018 8:27 AM COTTON CONVERTER): Continue the prn albuteral. Fatigue due to excessive exertion Elevated lactic acid level Chest pain, musculoskeletal Assessment & Plan (03/08/2023 4:24 PM CDT): C/p indescribable chest pain-denies radiation of pain, N/V, SOB, diaphoresis Likely musculoskeletal Order [place] for prn use Assessment & Plan (03/07/2023 2:21 PM CDT): C/p indescribable chest pain-denies radiation of pain, N/V, SOB, diaphoresis Likely musculoskeletal Order [place] for prn use Assessment & Plan (03/06/2023 1:03 PM CDT): C/p indescribable chest pain-denies radiation of pain, N/V, SOB, diaphoresis Likely musculoskeletal Order [place] for prn use Left ventricular hypertrophy Moderate [...] 10/26/2018 Assessment & Plan (10/20/2018 10:03 AM COTTON CONVERTER): Stable on multiple cxr. Asymptomatic Atelectasis 10/11/2018 10/19/2018 Assessment & Plan (10/13/2018 12:41 PM COTTON CONVERTER): Small lung volumes on CXR- Continue O2, IS, acepella Assessment & Plan (10/12/2018 5:31 PM COTTON CONVERTER): Extubated yesterday evening, required Bipap overnight -Keep sats >92% -Aggressive pulmonary hygiene -OOBCT/ambulate -lasix 20mg for diuresis to achieve negative FB Assessment & Plan (10/12/2018 2:36 AM COTTON CONVERTER): Extubated, requiring 6L Nasal cannula. ABG with slight respiratory acidosis -BiPAP now, will plan to keep on overnight -Avoid narcs until more awake -Keep sats >92% -ABG tonight -Aggressive pulmonary hygiene Assessment & Plan (10/11/2018 7:01 PM COTTON CONVERTER): Pt arrived intubated and sedated on precedex. [...] bedside. Nasal trumpet placed. Pt extubated to [place]. Plan for pt to wear nasal CPAP [...] results Assessment & Plan (10/26/2018 12:38 PM COTTON CONVERTER): Wbc 15.3 Continue broad spectrum abx UA negative No drainage from sternal wound Assessment & Plan (10/20/2018 10:03 AM COTTON CONVERTER): Remains afebrile WBC stable Assessment & Plan (10/12/2018 5:37 PM COTTON CONVERTER): WBC ~17 post-op down trending to ~12. Likely 2/2 to surgery and bypass run. No infectious concerns at this time -augusto-op antibiotics to complete today -cbc with am labs Assessment & Plan (10/11/2018 6:00 PM COTTON CONVERTER): WBC ~17 post-op. Likely 2/2 to surgery and bypass run. No infectious concerns at this time -augusto-op antibiotics -cbc with am labs Postoperative hypovolemic shock 10/11/2018 10/13/2018 Assessment & Plan (10/11/2018 7:00 PM COTTON CONVERTER): Pt arrived on NE at 0.06. Post-CPB ECHO with under-filled LV, LHV, and but normal biventricular function. Pt received 1.5L crystalloid, 750 albumin, and 475 cell saver. CVP 8-10. HR 90-100 -Albumin 500ml -NE to maintain MAP >65 but SBP <120 BMI 50.0-59.9, adult ([facility] 10/06/2018 03/19/2023 Overview (07/06/2021): Last Assessment & [...] understanding Assessment & Plan (10/14/2018 4:54 PM COTTON CONVERTER): Complicated DM management Assessment & Plan (10/12/2018 7:13 PM COTTON CONVERTER): Complicated DM management Assessment & Plan (10/13/2018 12:41 PM COTTON CONVERTER): Fall precautions Using bariatric equipment. High risk medication use 10/05/201811/2018 Assessment & Plan (10/20/2018 1:21 PM COTTON CONVERTER): This patient is at high risk for [...] appetite. Assessment & Plan (10/19/2018 3:00 PM COTTON CONVERTER): This patient is at high risk for [...] appetite. Assessment & Plan (10/14/2018 4:54 PM COTTON CONVERTER): This patient is at high risk for [...] appetite. Assessment & Plan (10/13/2018 4:02 PM COTTON CONVERTER): This patient is at high risk for [...] appetite. Assessment & Plan (10/12/2018 7:13 PM COTTON CONVERTER): This patient is at high risk for [...] appetite. Assessment & Plan (10/10/2018 2:58 PM COTTON CONVERTER): This patient is at high risk for metabolic deterioration related to being on insulin therapy in the setting of multiple co-morbidities. Intensive monitoring is needed to allow for safe, targeted dosing of insulin. Adjustments in dosing will be made based on the blood sugar monitoring and patient variables. Assessment & Plan (10/07/2018 2:37 PM COTTON CONVERTER): This patient is at high risk for metabolic deterioration related to being on insulin therapy in the setting of multiple co-morbidities. Intensive monitoring is needed to allow for safe, targeted dosing of insulin. Adjustments in dosing will be made based on the blood sugar monitoring and patient variables. Assessment & Plan (10/06/2018 5:57 PM COTTON CONVERTER): This patient is at high risk for metabolic deterioration related to being on insulin therapy in the setting of multiple co-morbidities. Intensive monitoring is needed to allow for safe, targeted dosing of insulin. Adjustments in dosing will be made based on the blood sugar monitoring and patient variables. Assessment & Plan (10/05/2018 7:22 PM COTTON CONVERTER): This patient is at high risk for metabolic deterioration related to being on insulin therapy in the setting of multiple co-morbidities. Intensive monitoring is needed to allow for safe, targeted dosing of insulin. Adjustments in dosing will be made based on the blood sugar monitoring and patient variables. Aortic stenosis 09/29/2018 03/19/2023 Overview (09/29/2018): Added automatically from request for surgery [id number] Assessment & Plan (03/08/2023 4:24 PM CDT): [...] 160. Assessment & Plan (10/26/2018 12:38 PM COTTON CONVERTER): s/p bio AVR w/ aortoplasty with a 25mm Avalus valve 10/11/18 Was discharged on 10/21/18 Presented to her local ED with left pain under her breast Was admitted to [facility] due to murmur heard on exam and WBC -placed on abx -TTE ordered Assessment & Plan (10/20/2018 1:21 PM COTTON CONVERTER): Will require good glycemic control to facilitate healing after surgery. Assessment & Plan (10/19/2018 3:00 PM COTTON CONVERTER): Will require good glycemic control to facilitate healing after surgery. Assessment & Plan (10/14/2018 4:54 PM COTTON CONVERTER): Will require good glycemic control to facilitate healing after surgery. Assessment & Plan (10/13/2018 4:03 PM COTTON CONVERTER): Will require good glycemic control to facilitate healing after surgery. Assessment & Plan (10/12/2018 7:13 PM COTTON CONVERTER): Will require good glycemic control to facilitate healing after surgery. Assessment & Plan (10/12/2018 5:22 PM COTTON CONVERTER): S/p bio AVR and aortoplasty. Post-op care to include: - DVT ppx: SCDs to BLE and SQH - infection ppx: augusto-op antibiotics to complete today - Nutrition plan: ADAT - Bowel regimen: colace and senna - PT to evaluate and treat - Metoprolol 6.25 Assessment & Plan (10/11/2018 5:58 PM COTTON CONVERTER): S/p bio AVR and aortoplasty. Post-op care [...] treat Assessment & Plan (10/10/2018 2:58 PM COTTON CONVERTER): Will require good glycemic control to facilitate healing after surgery. Assessment & Plan (10/07/2018 2:44 PM COTTON CONVERTER): Will require good glycemic control to facilitate healing after surgery. Assessment & Plan (10/20/2018 10:01 AM COTTON CONVERTER): S/p bio AVR POD #8 Continue ASA, beta anita. Sternal drainage, betadine paint, Continue bactrim DS. Pelvic pain in female 06/30/20182017 Overview (06/30/2018): Added automatically from request for surgery [id number] Acute bronchitis 12/17/2017 10/05/2018 Bronchospasm with bronchitis, acute 12/17/2017 10/05/2018 Chest wall muscle strain, initial encounter 12/17/2017 10/05/2018 Bloody discharge from right nipple 08/18/2017 10/05/2018 Knee pain 03/30/2016 10/26/2018 Overview (01/29/2017): Knee pain Uncontrolled type 2 diabetes mellitus with hyperglycemia 03/05/2023 Immunizations Immunization Administration Dates Next Due Pneumococcal Conjugate PCV 13 02/17/2019 Social History Tobacco Use Types Packs/Day Years [...] week 03/11/2023 How often do you attend chur ch or denominational services? Never 03/11/2023 Do you belong to any clubs o r organizations such as hoahaoism groups, unions, fraternal or athletic groups, or [...] staff should administer the PHQ-9) 0 03/27/2023 [facility] - Occupational Stress Questionnaire Answer Date Recorded [...] place to sleep or slept in a [place] health care facility (including now)? No 03/11/2023 Personal Safety Answer Date Recorded Have you ever been in or are you currently in a harmful physical or emotional relationship or is someone making you feel afraid or unsafe? Denies 05/07/2024 Comments No Sex and Gender Information Value Date Recorded Sex Assigned at Not on file Legal Sex Female 12:14 AM COTTON CONVERTER Gender Identity Not on file Sexual Orientation [...] 05/07/2024 11:27 PM CDT Plan of Treatment Not on file Medical Devices Implanted Type Area Staff Air Tactical Officer Device Identifier Shelf Expiration Date Model / Serial / Lot Bard Peripheral Vascular [id number] Ultraclip Bard 17ga 12cm 2 Trigger Permanent Ultrasound - [id number] - [id number] Implanted:Qty: 1 on 07/24/2021 by Pepito Batista MD at [facility] Breast Right: Breast Bard Peripheral Vascular 04/21/2024 [id number] / [id number] / Description:Implanted Right Breast Retroareolar Bard Peripheral Vascular [id number] Ultraclip Bard 17ga 10cm 2 Trigger Permanent Ultrasound - [id number] - [id number] Implanted:Qty: 1 on 07/24/2021 by Pepito Batista MD at [facility] Breast Right: Breast Bard Peripheral Vascular 04/21/2024 [id number] / [id number] / Description:Right Axillary L ymph Node Valve Aortic 25mm 400 Series Ltxfre - [id number] - [id number] Implanted:Qty: 1 on 10/11/2018 by Eunice Soto MD at [facility] Other - see comments Medtronic Inc 07/22/2019 [id number] / [id number] / Description:Aortic Valve Medtronic Card Vasc Surgery [id number] Streamline 53cm Temporary Bipolar Coaxial Myocardium Lead Pacing Latex Free - [id number] - [id number] Implanted:Qty: 1 on 10/11/2018 by Eunice Soto MD at [facility] Medtronic Card Vasc Surgery 08/17/2020 [id number] / [id number] / Description:Temporary Ventri cular pacing wire [employer] Inspiris Resilia Leaflet Aortic Valve 25mm [id number] - [id number] - [id number] Implanted:Qty: 1 on 03/09/2023 by Eunice Soto MD at [facility] N/A: Chest Spicer [employer]iences [id number] 11/15/2026 [id number] / [id number] / Wl [employer] 15x5cm Thk.6mm Patch Cardiovascular Charlotte-Irvin Sterile [id number] - [id number] - [id number] Implanted:Qty: 1 on 03/09/2023 by Eunice Soto MD at [facility] N/A: Chest Wl [employer] [id number] 07/28/2026 [id number] / [id number] / Procedures Procedure Name Priority Date/Time Associated [...] LAB BLOOD ORDERABLE S Final Result [facility]) 1 [facility] [place] [address] * Hepatitis C antibody (03/09/2023 1:05 PM CDT) Hep C Ab Nonreactive Nonreactive [facility] Comment:Antibodies to HCV no t detected. Does NOT exclude the possibility of recent exposure to HCV. Current interpretive data was last revised on 22 Blood 03/09/2023 1:05 PM CDT 03/09/2023 1:39 PM CDT Jori Negron MD LAB MICROBIOLOGY - GENERAL MICHEALRosario VILLAREVAN Final Result Performing Organization Address [facility] de Phone Number [facility] [place] [address] * (ABNORMAL) Hemoglobin A1c (03/05/2023 6:02 PM CDT) Hgb A1C 6.4(H) 4.0 - 5.6 % [facility] Estimated Average Glucose 137 mg/dL [facility] Comment: The ADA recommends reporting an estimated [...] ORDERABLES Final Resul t Performing Organization Address [facility] de Phone Number [facility] [place] [address] * (ABNORMAL) Lipid panel (03/05/2023 6:02 PM CDT) Cholesterol 130 30 - 199 mg/dL [facility] Comment: Interpretive Data Ages < or = [...] revised on 2018. Triglycerides 88 <=149 mg/dL [facility] Comment: Interpretive Data Ages < or = [...] revised on 2018. HDL 39(L) >=40 mg/dL [facility] Comment: Interpretive Data Ages < or = 19 years Acceptable: >45 mg/dL Borderline low: 40-45 mg/dL Low: <40 mg/dL Ages > or = 20 years Desirable: >or= 60 mg/dL Low: <40 mg/dL Literature References: 1. Expert Panel on Integrated Guidelines for Cardiovascular Health and Risk Reduction in Children and Adolescents. Pediatrics 2011;128:S213 2. NCEP Expert Panel. Circulation 2003;110:227 Current Interpretive Data was last revised on 2018. LDL, calculated 73 <=129 mg/dL [facility] Comment: Interpretive Data Ages < or = [...] revised on 2018. Non-HDL Cholesterol 91 mg/dL [facility] Comment: Interpretive Data Ages < or = [...] last revised on 2018. Chol/HDL ratio 3 [facility] Blood 03/05/2023 6:02 PM CDT 03/05/2023 6:21 PM CDT us Cheryl Watters NP LAB BLOOD ORDERABLES Final Resul t [facility] Department [place] [address] * (ABNORMAL) DIAGNOSTIC MAMMOGRAM BILATERAL W ELIZA [...] 5 mm in thickness. us Bertha Ortega CITY TREASURER IMG MAMMO PROCEDURES Ce l Result * Imaging Pap and HPV mRNA E6/E7 (05/03/2018 10:56 AM CDT) Report status CANCELED [facility] Comment:Result canceled by t olayinka ancillary CLINICAL INFORMATION: [facility] [...] [facility] Comment:Result canceled by t he ancillary HPV interp [facility] Comment:Negative for intraep ithelial lesion or malignancy. Infection: CANCELED [facility] Comment:Result canceled by t he ancillary COMMENTS [facility] - Comment: This Pap test has been evaluated with computer assisted technology. Director Radiation Oncology [facility] - Comment: AMW, CT(ASCP) CT screening location: [place] [address] [address] [place] [address] Review workers compensation claims adjuster CANCELED [facility] [place] Comment:Result canceled by t he ancillary Pathologist [facility]CELED [facility] Comment:Result canceled by t he ancillary Comment [facility] [place] Comment: EXPLANATORY NOTE: The Pap is a [...] High Risk E6/E7 Not Detected Not Detected [facility] [place] Comment: This test was performed using the APTIMA HPV Assay ([employer] This assay detects E6/E7 viral messenger RNA (mRNA) from 14 high-risk HPV types (16,18,31,33,35,39,45,51,52,56,58,59,66,68). The analytical performance characteristics of this assay have been determined by Company. The modifications have not been cleared or approved by the FDA. This assay has been validated pursuant to the CLIA regulations and is used for clinical purposes. Endocervical/vag inal 05/03/2018 10:56 AM CDT 05/04/2018 6:19 AM CDT Narrative Resulting Agency Comment Performing Organization Information: Site ID: [id number] [facility] Address: [address] [address] Director: Jamie Morales D.O., MPH Site ID: [id number] [facility] Address: [address] [address] [place] [address] Director: Arnold Diaz Abdirahman Kirkpatrick MD LAB PATHOLOGY ORDERABLES F inal Result [facility] [place], [place] [facility] [place] from Last 3 Months or Most Recently Relevant to Health Maintenance Insurance [facility] CHOICE [facility]US [facility] HMO/PPO Address: [address] [address] [place] [address] Advance Directives For more information, please contact: [phone] Documents on File Type Date Recorded Patient Sewer Pipe Layer Expl anation ADVANCE DIRECTIVE 04/01/2023 11:13 AM POWER OF TAX SERVICES INTERN-MEDICAL ADVANCE DIRECTIVE 03/15/2023 11:28 AM RUPAL R OF TAX SERVICES INTERN-MEDICAL * Full Code (Latest Code Status on [...] 1:56 PM 10/27/2018 6:42 PM Care Teams Design Director Relationship Specialty Start Date End Date John Lomax MD PCP - General 08/20/16 Atilio Carl MD Referring Physician Cardiology 09/02/18 Eunice Soto MD [id number] [place], [place] [id number] Surgeon Cardiothoracic Surgery 03/29/23 Sae Hawkins MD PhD [id number] [place] [address] Consulting Physician Cardiology 03/29/23
[2025-02-19 21:48] VITALS: BP 150/93; PULSE 91; RESP 19; TEMP 36.6; O2SAT 98
--- NOTE | 2025-02-20 01:37 | PC.NURSE ---
Call x1 for room, no answer
--- NOTE | 2025-02-20 01:40 | PC.NURSE ---
Call x1 for room, no answer
--- NOTE | 2025-02-20 02:10 | PC.NURSE ---
Call x2, no answer
--- OUTSIDE RECORDS SUMMARY | 2025-02-20 02:30 | XMS_ITS | Clinical Summary ---
Author Organization [facility] Address [facility] [place] [address] Care Team Providers Care Electromagnet Crane Operator Name Role Phone John Lomax MD Primary Care Provider [phone] Allergies Active Allergy Reactions Criticality Noted Date [...] age to complete this topic Care Teams Electromagnet Crane Operator Relationship Specialty Start Date End Date John Lomax MD [address] [place] [address] PCP - General INTERNAL MEDICINE 06/24/24
--- OUTSIDE RECORDS SUMMARY | 2025-02-20 02:30 | XMS_ITS | Clinical Summary ---
Author Organization [facility] Address [address] [place] [address] Care Team Providers Care Well Surveying Engineer Name Role Phone Unavailable Primary Care Provider Unavailabl e Source Comments [facility],non-owned Affiliates and Associated Physician Practices is amultiple site organization consisting of ambulatory clinics and hospital sitesin [place], [place], [place] and [place]. This disclosure is being madepursuant to the Care Everywhere program and may not contain all information available regarding this patient. Last updated 18.[facility] Social History Tobacco Use Types Packs/Day Years Used Date Smoking Tobacco: Never Assessed Comments Unknown Sex and Gender Information Value Date Recorded Sex Assigned at Not on file Legal Sex Female 6:19 AM POWER STATION OPERATOR Gender Identity Not on file Sexual Orientation [...]
--- OUTSIDE RECORDS SUMMARY | 2025-02-20 02:30 | XMS_ITS | Referral Summary ---
Author Organization [facility] Medical Office Building B Address [address] [place] [address] Care Team Providers Care Supervisor Plating And Point Assembly Name Role Phone John Lomax MD Primary Care Provider + Atilio Carl MD Unavailable [phone] Eunice Soto MD Unavailable Sae Hawkins MD PhD Unavailable + Allergies Active Allergy Reactions Criticality Noted Date Comments [place] Oil Anaphylaxis High Cephalosporins Nausea & Vomiting [...] surgery Assessment & Plan (10/20/2018 10:03 AM EDUCATOR SENIOR CLINICAL): Wean Oxycodone prior to discharge Teach splinting Added gabapentin yesterday Assessment & Plan (10/12/2018 7:06 PM EDUCATOR SENIOR CLINICAL): Remaining drowsy post-op with respiratory acidosis. -Lido patches -Schedule Tylenol -Oxy PRN -Dilaudid PRN Increase OXY to 10mg PRN Assessment & Plan (10/12/2018 5:15 AM EDUCATOR SENIOR CLINICAL): Remaining drowsy post-op with respiratory acidosis. -Lido patches -Schedule Tylenol -Will try to avoid narcs at this time Additional Care: Better mentation overnight, given 1 dose Oxy and 1 dose of Dilaudid, tolerating well. Continues to endorsing pain. Will increase frequency as tolerated. Improving ABG Assessment & Plan (10/11/2018 6:55 PM EDUCATOR SENIOR CLINICAL): Expected post-op. Given Fent 200mcg on arrival [...] with accu cks QID BS well controlled conservation educator met with pt and provided education/supplies for TID testing at discharge Assessment & Plan (03/27/2023 10:17 AM CDT): Pt denies dx HgbA1c 6.4 (137) Currently on SSI with accu cks QID BS well controlled conservation educator met with pt and provided education/supplies for TID testing at discharge Assessment & Plan (03/26/2023 1:03 PM CDT): Pt denies dx HgbA1c 6.4 (137) Currently on SSI with accu cks QID BS well controlled conservation educator met with pt and provided education/supplies for TID testing at discharge Assessment & Plan (03/23/2023 2:11 PM CDT): Pt denies dx HgbA1c 6.4 (137) Currently on SSI with accu cks QID BS well controlled conservation educator met with pt and provided education/supplies [...] insulin. Assessment & Plan (10/26/2018 12:35 PM EDUCATOR SENIOR CLINICAL): Continue lantus and sliding scale Assessment & Plan (10/20/2018 1:21 PM EDUCATOR SENIOR CLINICAL): Over the past 24 hours, her blood [...] today, please call Ryann Owens NP, at [phone]. If it is after hours, please call the Diabetes Fellow at [phone]. Assessment & Plan (10/19/2018 3:10 PM EDUCATOR SENIOR CLINICAL): Over the past 24 hours, her blood [...] today, please call the Diabetes Fellow at [phone]. Assessment & Plan (10/14/2018 4:58 PM EDUCATOR SENIOR CLINICAL): Over the previous 24 hours, blood glucose [...] today, please call Yoanna Louise NP at [phone]. If after hours, please contact the Diabetes Fellow at [phone].. Assessment & Plan (10/13/2018 4:06 PM EDUCATOR SENIOR CLINICAL): Over the previous 24 hours, blood glucose [...] today, please call Yoanna Louise NP at [phone]. If after hours, please contact the Diabetes Fellow at [phone].. Assessment & Plan (10/12/2018 7:12 PM EDUCATOR SENIOR CLINICAL): Pt has increased insulin requirement likely due [...] call SATINDER / Inocencia Byrne M.D. At [phone] for any questions. If after 5 PM or weekends, please contact the Diabetes Fellow at [phone], option #1 Tentative Discharge Plan: We will consider DC home on orals vs GLP1 agonist like Victoza with adding metformin afterward if GLP1 is well controlled. Follow up: She wants to follow up with our Endocrinology clinic. Will request an appointment prior to discharge. Recommendations for diabetes management were discussed with the primary team. Assessment & Plan (10/12/2018 7:05 PM EDUCATOR SENIOR CLINICAL): Arrived with insulin gtt at 24u/hr. Pt diagnosed with DMII this admission. HgbA1C ~9. Endo consulted. Remains on insulin gtt @ 5u/hr this am. -f/u with Endo for insulin regimen to transition off gtt Endo recs: -NPH 20u q 8 (stop insulin gtt two hours after NPH administration) -SSI -post prandial if eats >50% of meal Assessment & Plan (10/10/2018 2:59 PM EDUCATOR SENIOR CLINICAL): Over the previous 24 hours, blood glucose [...] today, please call Yoanna Louise NP at [phone]. If after hours, please contact the Diabetes Fellow at [phone]. Assessment & Plan (10/07/2018 2:42 PM EDUCATOR SENIOR CLINICAL): Over the previous 24 hours, blood glucose [...] today, please call Yoanna Louise NP at [phone]. If after hours, please contact the Diabetes Fellow at [phone]. Assessment & Plan (10/06/2018 6:01 PM EDUCATOR SENIOR CLINICAL): Over the previous 24 hours, blood glucose [...] today, please call Yoanna Louise NP at [phone]. If after hours, please contact the Diabetes Fellow at [phone]. Assessment & Plan (10/20/2018 10:02 AM EDUCATOR SENIOR CLINICAL): New diagnosis of DM Hgb A1c on admission = 9.1 Seen by nurse educator- taught glucometer use and trulicity pen. F/u endocrine discharge recs Assessment & Plan (10/05/2018 7:21 PM EDUCATOR SENIOR CLINICAL): 43 yoF with HTN, obesity (BMI 54), [...] (07/13/2018): Added automatically from request for surgery [id number] Menorrhagia with regular cycle 06/30/2018 Overview (06/30/2018): Added automatically from request for surgery [id number] Rib sprain, initial encounter 12/17/2017 Current smoker [...] discharge. Assessment & Plan (10/12/2018 5:22 PM EDUCATOR SENIOR CLINICAL): H/o asthma. Smoking up to admission. -albuterol PRN Assessment & Plan (10/11/2018 6:37 PM EDUCATOR SENIOR CLINICAL): H/o asthma. Smoking up to admission. -albuterol PRN Assessment & Plan (10/05/2018 8:27 AM EDUCATOR SENIOR CLINICAL): Continue the prn albuteral. Fatigue due to excessive exertion Elevated lactic acid level Chest pain, musculoskeletal Assessment & Plan (03/08/2023 4:24 PM CDT): C/p indescribable chest pain-denies radiation of pain, N/V, SOB, diaphoresis Likely musculoskeletal Order Pawling for prn use Assessment & Plan (03/07/2023 2:21 PM CDT): C/p indescribable chest pain-denies radiation of pain, N/V, SOB, diaphoresis Likely musculoskeletal Order Pawling for prn use Assessment & Plan (03/06/2023 1:03 PM CDT): C/p indescribable chest pain-denies radiation of pain, N/V, SOB, diaphoresis Likely musculoskeletal Order Pawling for prn use Left ventricular hypertrophy Moderate [...] 10/26/2018 Assessment & Plan (10/20/2018 10:03 AM EDUCATOR SENIOR CLINICAL): Stable on multiple cxr. Asymptomatic Atelectasis 10/11/2018 10/19/2018 Assessment & Plan (10/13/2018 12:41 PM EDUCATOR SENIOR CLINICAL): Small lung volumes on CXR- Continue O2, IS, acepella Assessment & Plan (10/12/2018 5:31 PM EDUCATOR SENIOR CLINICAL): Extubated yesterday evening, required Bipap overnight -Keep sats >92% -Aggressive pulmonary hygiene -OOBCT/ambulate -lasix 20mg for diuresis to achieve negative FB Assessment & Plan (10/12/2018 2:36 AM EDUCATOR SENIOR CLINICAL): Extubated, requiring 6L Nasal cannula. ABG with slight respiratory acidosis -BiPAP now, will plan to keep on overnight -Avoid narcs until more awake -Keep sats >92% -ABG tonight -Aggressive pulmonary hygiene Assessment & Plan (10/11/2018 7:01 PM EDUCATOR SENIOR CLINICAL): Pt arrived intubated and sedated on precedex. [...] bedside. Nasal trumpet placed. Pt extubated to RI. Plan for pt to wear nasal CPAP [...] results Assessment & Plan (10/26/2018 12:38 PM EDUCATOR SENIOR CLINICAL): Wbc 15.3 Continue broad spectrum abx UA negative No drainage from sternal wound Assessment & Plan (10/20/2018 10:03 AM EDUCATOR SENIOR CLINICAL): Remains afebrile WBC stable Assessment & Plan (10/12/2018 5:37 PM EDUCATOR SENIOR CLINICAL): WBC ~17 post-op down trending to ~12. Likely 2/2 to surgery and bypass run. No infectious concerns at this time -augusto-op antibiotics to complete today -cbc with am labs Assessment & Plan (10/11/2018 6:00 PM EDUCATOR SENIOR CLINICAL): WBC ~17 post-op. Likely 2/2 to surgery and bypass run. No infectious concerns at this time -augusto-op antibiotics -cbc with am labs Postoperative hypovolemic shock 10/11/2018 10/13/2018 Assessment & Plan (10/11/2018 7:00 PM EDUCATOR SENIOR CLINICAL): Pt arrived on NE at 0.06. Post-CPB ECHO with under-filled LV, LHV, and but normal biventricular function. Pt received 1.5L crystalloid, 750 albumin, and 475 cell saver. CVP 8-10. HR 90-100 -Albumin 500ml -NE to maintain MAP >65 but SBP <120 BMI 50.0-59.9, adult ([facility]) 10/06/2018 03/19/2023 Overview (07/06/2021): Last Assessment & [...] understanding Assessment & Plan (10/14/2018 4:54 PM EDUCATOR SENIOR CLINICAL): Complicated DM management Assessment & Plan (10/12/2018 7:13 PM EDUCATOR SENIOR CLINICAL): Complicated DM management Assessment & Plan (10/13/2018 12:41 PM EDUCATOR SENIOR CLINICAL): Fall precautions Using bariatric equipment. High risk medication use 10/05/201811/2018 Assessment & Plan (10/20/2018 1:21 PM EDUCATOR SENIOR CLINICAL): This patient is at high risk for [...] appetite. Assessment & Plan (10/19/2018 3:00 PM EDUCATOR SENIOR CLINICAL): This patient is at high risk for [...] appetite. Assessment & Plan (10/14/2018 4:54 PM EDUCATOR SENIOR CLINICAL): This patient is at high risk for [...] appetite. Assessment & Plan (10/13/2018 4:02 PM EDUCATOR SENIOR CLINICAL): This patient is at high risk for [...] appetite. Assessment & Plan (10/12/2018 7:13 PM EDUCATOR SENIOR CLINICAL): This patient is at high risk for [...] appetite. Assessment & Plan (10/10/2018 2:58 PM EDUCATOR SENIOR CLINICAL): This patient is at high risk for metabolic deterioration related to being on insulin therapy in the setting of multiple co-morbidities. Intensive monitoring is needed to allow for safe, targeted dosing of insulin. Adjustments in dosing will be made based on the blood sugar monitoring and patient variables. Assessment & Plan (10/07/2018 2:37 PM EDUCATOR SENIOR CLINICAL): This patient is at high risk for metabolic deterioration related to being on insulin therapy in the setting of multiple co-morbidities. Intensive monitoring is needed to allow for safe, targeted dosing of insulin. Adjustments in dosing will be made based on the blood sugar monitoring and patient variables. Assessment & Plan (10/06/2018 5:57 PM EDUCATOR SENIOR CLINICAL): This patient is at high risk for metabolic deterioration related to being on insulin therapy in the setting of multiple co-morbidities. Intensive monitoring is needed to allow for safe, targeted dosing of insulin. Adjustments in dosing will be made based on the blood sugar monitoring and patient variables. Assessment & Plan (10/05/2018 7:22 PM EDUCATOR SENIOR CLINICAL): This patient is at high risk for metabolic deterioration related to being on insulin therapy in the setting of multiple co-morbidities. Intensive monitoring is needed to allow for safe, targeted dosing of insulin. Adjustments in dosing will be made based on the blood sugar monitoring and patient variables. Aortic stenosis 09/29/2018 03/19/2023 Overview (09/29/2018): Added automatically from request for surgery [id number] Assessment & Plan (03/08/2023 4:24 PM CDT): [...] 160. Assessment & Plan (10/26/2018 12:38 PM EDUCATOR SENIOR CLINICAL): s/p bio AVR w/ aortoplasty with a 25mm Avalus valve 10/11/18 Was discharged on 10/21/18 Presented to her local ED with left pain under her breast Was admitted to [facility] due to murmur heard on exam and WBC -placed on abx -TTE ordered Assessment & Plan (10/20/2018 1:21 PM EDUCATOR SENIOR CLINICAL): Will require good glycemic control to facilitate healing after surgery. Assessment & Plan (10/19/2018 3:00 PM EDUCATOR SENIOR CLINICAL): Will require good glycemic control to facilitate healing after surgery. Assessment & Plan (10/14/2018 4:54 PM EDUCATOR SENIOR CLINICAL): Will require good glycemic control to facilitate healing after surgery. Assessment & Plan (10/13/2018 4:03 PM EDUCATOR SENIOR CLINICAL): Will require good glycemic control to facilitate healing after surgery. Assessment & Plan (10/12/2018 7:13 PM EDUCATOR SENIOR CLINICAL): Will require good glycemic control to facilitate healing after surgery. Assessment & Plan (10/12/2018 5:22 PM EDUCATOR SENIOR CLINICAL): S/p bio AVR and aortoplasty. Post-op care to include: - DVT ppx: SCDs to BLE and SQH - infection ppx: augusto-op antibiotics to complete today - Nutrition plan: ADAT - Bowel regimen: colace and senna - PT to evaluate and treat - Metoprolol 6.25 Assessment & Plan (10/11/2018 5:58 PM EDUCATOR SENIOR CLINICAL): S/p bio AVR and aortoplasty. Post-op care [...] treat Assessment & Plan (10/10/2018 2:58 PM EDUCATOR SENIOR CLINICAL): Will require good glycemic control to facilitate healing after surgery. Assessment & Plan (10/07/2018 2:44 PM EDUCATOR SENIOR CLINICAL): Will require good glycemic control to facilitate healing after surgery. Assessment & Plan (10/20/2018 10:01 AM EDUCATOR SENIOR CLINICAL): S/p bio AVR POD #8 Continue ASA, beta anita. Sternal drainage, betadine paint, Continue bactrim DS. Pelvic pain in female 06/30/20182017 Overview (06/30/2018): Added automatically from request for surgery [id number] Acute bronchitis 12/17/2017 10/05/2018 Bronchospasm with bronchitis, [...] often do you attend chur ch or protestant services? Never 03/11/2023 Do you belong to any clubs o r organizations such as sikhism groups, unions, fraternal or athletic groups, or [...] staff should administer the PHQ-9) 0 03/27/2023 [facility] - Occupational Stress [...] place to sleep or slept in a mcfp (including now)? No 03/11/2023 Personal Safety Answer Date Recorded Have you ever been in or are you currently in a harmful physical or emotional relationship or is someone making you feel afraid or unsafe? Denies 05/07/2024 Comments No Sex and Gender Information Value Date Recorded Sex Assigned at Not on file Legal Sex Female 12:14 AM EDUCATOR SENIOR CLINICAL Gender Identity Not on file Sexual Orientation [...] on file Medical Devices Implanted Type Area Vp Director Of Finance Device Identifier Shelf Expiration Date Model / Serial / Lot Bard Peripheral Vascular [id number] Ultraclip Bard 17ga 12cm 2 Trigger Permanent Ultrasound - [id number] - [id number] Implanted:Qty: 1 on 07/24/2021 by Pepito Batista MD at [facility] Breast Right: Breast Bard Peripheral Vascular 04/21/2024 [id number] / [id number] / Description:Implanted Right Breast Retroareolar Bard Peripheral Vascular [id number] Ultraclip Bard 17ga 10cm 2 Trigger Permanent Ultrasound - [id number] - [id number] Implanted:Qty: 1 on 07/24/2021 by Pepito Batista MD at [facility] Breast Right: Breast Bard Peripheral Vascular 04/21/2024 [id number] / [id number] / Description:Right Axillary L ymph Node Valve Aortic 25mm 400 Series Ltxfre - [id number] - [id number] Implanted:Qty: 1 on 10/11/2018 by Eunice Soto MD at [facility] Other - see comments Medtronic Inc 07/22/2019 [id number] / [id number] / Description:Aortic Valve Medtronic Card Vasc Surgery [id number] Streamline 53cm Temporary Bipolar Coaxial Myocardium Lead Pacing Latex Free - [id number] - [id number] Implanted:Qty: 1 on 10/11/2018 by Eunice Soto MD at [facility] Medtronic Card Vasc Surgery 08/17/2020 [id number] / 0 / Description:Temporary Ventri cular pacing wire Swift [employer] Inspiris Resilia Leaflet Aortic Valve 25mm [id number] - [id number] - [id number] Implanted:Qty: 1 on 03/09/2023 by Eunice Soto MD at [facility] N/A: Chest Spicer [employer] [id number] 11/15/2026 [id number] / [id number] / Wl [employer] 15x5cm Thk.6mm Patch Cardiovascular [employer]vin [employer] [id number] - [id number] - [id number] Implanted:Qty: 1 on 03/09/2023 by Eunice Soto MD at [facility] N/A: Chest Wl [employer] [id number] 07/28/2026 [id number] / [id number] / Procedures Procedure Name Priority Date/Time Associated [...] S Final Result [facility]) 1 [facility] [place] [place] [address] * Hepatitis C antibody (03/09/2023 [...] MICHEALRosario VILLAREVAN Final Result Performing Organization Address [facility] de Phone Number [facility] [place] [address] * (ABNORMAL) Hemoglobin A1c (03/05/2023 6:02 PM CDT) Hgb A1C 6.4(H) 4.0 - 5.6 % [facility] Estimated Average Glucose 137 mg/dL [facility] Comment: The ADA recommends reporting an estimated [...] ORDERABLES Final Resul t Performing Organization Address [facility] de Phone Number [facility] [place] [place] [address] * (ABNORMAL) Lipid panel (03/05/2023 6:02 PM CDT) Cholesterol 130 30 - 199 mg/dL [facility] Comment: Interpretive Data Ages < or = [...] last revised on 2018. Chol/HDL ratio 3 [facility] Blood 03/05/2023 6:02 PM CDT 03/05/2023 6:21 PM CDT us Cheryl Watters NP LAB BLOOD ORDERABLES Final Resul t [facility] Department [place] [address] * (ABNORMAL) DIAGNOSTIC MAMMOGRAM BILATERAL W ELIZA [...] 5 mm in thickness. us Bertha Ortega MANAGER SECONDARY IMG MAMMO PROCEDURES Ce l Result * [...] Comment:Result canceled by t he ancillary COMMENTS [facility] - Comment: This Pap test has been evaluated with computer assisted technology. Print Line Operator [facility] - Comment: AMW, CT(ASCP) CT screening location: [place] [address] [address] [place] [address] Review wigs salesperson CANCELED [facility] [place] Comment:Result canceled by t he ancillary Pathologist [facility] [place] Comment:Result canceled by t he ancillary Comment [facility] [place] Comment: EXPLANATORY NOTE: The [...] High Risk E6/E7 Not Detected Not Detected [facility] [place] Comment: This test was performed using the APTIMA HPV Assay ([employer] This assay detects E6/E7 viral messenger RNA (mRNA) from 14 high-risk HPV types (16,18,31,33,35,39,45,51,52,56,58,59,66,68). The analytical performance characteristics of this assay have been determined by [facility]. The modifications have not been cleared or approved by the FDA. This assay has been validated pursuant to the CLIA regulations and is used for clinical purposes. Endocervical/vag inal 05/03/2018 10:56 AM CDT 05/04/2018 6:19 AM CDT Narrative Resulting Agency Comment Performing Organization Information: Site ID: [id number] Name: [facility] Address: [address] [place] [address] Director: Jamie Morales D.O., MPH Site ID: [place] [facility]: [facility] Address: [address] [address] [place] [address] Director: Arnold Diaz Abdirahman Kirkpatrick MD LAB PATHOLOGY ORDERABLES F inal Result [facility] [place], [place] [facility] [place] from Last 3 Months or Most Recently Relevant to Health Maintenance Insurance COMMERCIAL GENERIC [facility] CHOICE [facility]US [facility] HMO/PPO Address: [address] [address] [place] [address] Advance Directives For more information, please contact: [phone] Documents on File Type Date Recorded Patient Machine I Coremaker Expl anation ADVANCE DIRECTIVE 04/01/2023 11:13 AM POWER OF SUPERVISOR FABRICATION-MEDICAL ADVANCE DIRECTIVE 03/15/2023 11:28 AM RUPAL R OF SUPERVISOR FABRICATION-MEDICAL * Full Code (Latest Code Status on [...] 1:56 PM 10/27/2018 6:42 PM Care Teams Supervisor Plating And Point Assembly Relationship Specialty Start Date End Date John Lomax MD PCP - General 08/20/16 Atilio Carl MD Referring Physician Cardiology 09/02/18 Eunice Soto MD [id number] [place], [place] [id number] Surgeon Cardiothoracic Surgery 03/29/23 Sae Hawkins MD PhD [id number] [place] [address] Consulting Physician Cardiology 03/29/23
--- OUTSIDE RECORDS SUMMARY | 2025-02-20 02:30 | XMS_ITS | Encounter Summary ---
Author Organization [facility] Address [address] [place] [address] Phone Care Team Providers Care Accounting Director Name Role Phone Bertha Pérez APRN, TURBINE OPERATOR Unavailable + [phone] John Lomax MD Primary Care Provider + [phone] Sherwin Cuba MD Unavailable Reason for Referral * Radiology Services (Routine) - Authorized Specialty Diagnoses / Procedures Referred By Contac t Referred To Contact Radiology Diagnoses Abnormal mammogram Procedures CHYNA DIAG RIGHT UNILATERAL DIGITAL W CAD W Sherwin Silver MD [address] [address] Phone: tel: fax: Referral ID Status Reason Start Date Expiration Date V isits Requested Visits Authorized [id number] Authorized 11/28/2024 1 1 RADIO MECHANIC Encounter Details Date Type Department Care Team (Late st Contact Info) Description 11/27/2024 Transcribe Orders [facility] [address] [place] [address] Sherwin Cuba MD [address] [address] Abnormal mammogram (Primary Dx); Abscess of right [...] Description 07/09/2025 11:00 AM CDT Office Visit [facility] [place] [address] [place] [address] John Lomax MD [address] [place] [address] Scheduled Orders Name Type Priority Associated Diagnoses [...] Depression Total Score: 0 11/05/19 1:04 PM AUTO RADIO MECHANIC documented as of this encounter Care Teams Accounting Director Relationship Specialty Start Date End Date John Lomax MD [address] [place] [address] PCP - General Internal Medicine 11/05/23 Bertha Pérez, PRODUCTION HELPER, TURBINE OPERATOR [address] [facility] [address] [address] Nurse Practitioner Gynecology 11/05/23 Sherwin Cuba MD [address] [address] Consulting Physician General Surgery 07/25/24 documented as of this encounter
--- OUTSIDE RECORDS SUMMARY | 2025-02-20 02:30 | XMS_ITS | Clinical Summary ---
Author Organization [facility] Address [address], [facility] [address] [place] [address] Phone Care Team Providers Care Journeyman Plumber Name Role Phone Bertha Pérez APRN, DINING ROOM MAID Unavailable + [phone] John Lomax MD Primary Care Provider [phone] Sherwin Cuba MD Unavailable Allergies Active Allergy Reactions Criticality Noted Date Comments [place] Oil Anaphylaxis High 12/12/2021 Cephalosporins Nausea,Unknown Medium 11/02/2016 Levofloxacin Itching,Palpitations ,Shortness of Breath,Other (see Comments) High 06/24/2024 Other-Food Allergen (Not Found In Search) Itching,Swelling High 11/03/2023 Raw veggies and fresh fruits / Watermelon /[place] Cause hives on her lips and itching [...] Overview: Added automatically from request for surgery [id number] Last Assessment & Plan: s/p bio AVR w/ aortoplasty with a 25mm Avalus valve 10/11/18 Was discharged on 10/21/18 Presented to her local ED with left pain under her breast Was admitted to [facility] due to murmur heard on exam and WBC -placed on abx -TTE ordered Encounters Date Type Department Care Team Description 01/22/2025 Refill [facility] [place] [address] [place] [address] John Lomax MD Medication Refill 12/28/2024 3:30 PM BPM ANALYST Office Visit [facility] [place] [address] [place] [address] John Lomax MD Encounter for health maintenance examination (Adult) (Primary Dx); Hypertension, essential; Type 2 diabetes mellitus without complication, without long-term current use of insulin (HCC); Mild intermittent asthma without complication; Encounter for hepatitis C screening test for low risk patient; Status post aortic valve replacement and aortoplasty; Anxiety with depression Discharge Disposition: Discharged to home or Selfcare 12/28/2024 Travel 12/25/2024 Refill [facility] [place] [address] [place] [address] John Lomax MD Medication Refill 12/14/2024 Telephone [facility] [place] [address] [place] [address] John Lomax MD 11/27/2024 Transcribe Orders [facility] [address] [place] [address] Sherwin Cuba MD Abnormal mammogram [...] pur e alcohol) 1-2 drinks a day [facility] Utilities Answer Date Recorded In the past 12 months has [employer], oil, or water [employer] threatened to shut off services in your [...] How often do you attend chur or taoism services? Never 12/28/2024 Do you belong to any clubs o r organizations such as faith groups, unions, fraternal or athletic groups, or [...] Total Score - Questions 1-9 4 03/2025 [facility] Occupational Stress Questionnaire Answer Date Recorded [...] any time in the past 12 m [facility], were you homeless or living in a detention (including now)? No 12/28/2024 Sexually Active Control Partners Comments Not Currently Male Comments No Sex and Gender Information Value Date Recorded Sex Assigned at Not on file Legal Sex Female 12:16 AM CDT Gender Identity Not on file Sexual Orientation Not on file Last Filed Vital Signs Vital Sign Reading Time Taken Comments Blood Pressure 134/84 12/28/2024 3:41 PM BPM ANALYST Pulse 113 12/28/2024 3:41 PM BPM ANALYST Temperature 37 C (98.6 F) 12/28/2024 3:41 PM BPM ANALYST Respiratory Rate 22 12/28/2024 3:41 PM BPM ANALYST Oxygen Saturation 97% 12/28/2024 3:41 PM BPM ANALYST Inhaled Oxygen Concentration - - Weight 122.5 kg (270 lb 1.6 oz) 12/28/2024 3:41 PM BPM ANALYST Height 167.6 cm (5' 6 ) 12/28/2024 3:41 PM BPM ANALYST Body Mass Index 43.6 12/28/2024 3:41 PM BPM ANALYST Plan of Treatment Upcoming Encounters Date Type Department Care Team (Late st Contact Info) Description 07/09/2025 11:00 AM CDT Office Visit [facility] [place] [address] [place] [id number] John Lomax MD [address] [place] [address] Health Maintenance Due Date Last Done Comments [...] Diagnosis Comments INFLUENZA TEST 11/26/2024 12:00 AM BPM ANALYST SARS-COV-2 BY MOLECULAR 11/26/2024 12:00 AM BPM ANALYST CHYNA DIAG BILATERAL DIGITAL W CAD W [...] Results * INFLUENZA TEST (11/26/2024 12:00 AM BPM ANALYST) 11/26/2024 us Provider Scan MICROBIOLOGY - GENERAL ORDERABLE S Final Result SCAN * SARS-COV-2 BY MOLECULAR (11/26/2024 12:00 AM BPM ANALYST) 11/26/2024 us Provider Scan MICROBIOLOGY - GENERAL [...] exams dated: 07/24/2021, 07/14/2021, 07/14/2021, and 08/03/2017 [facility]. BREAST TISSUE:There are scattered areas of fibroglandular [...] signed by: Blas Barahona M.D. ll/:08/01/2024 15:26:52 Pewter Finisher(s): Ira Tavares RT(R)(M), [facility]; Marcelle Pizarro, [facility] letter sent: Birad 3 Followup Reading location: [facility] OVERALL STUDY BIRADS: Category 3: [...] exams dated: 07/24/2021, 07/14/2021, 07/14/2021, and 08/03/2017 [facility]. BREAST TISSUE:There are scattered areas of fibroglandular [...] signed by: Blas Barahona M.D. ll/:08/01/2024 15:26:52 Pewter Finisher(s): RT Lety(R)(M), [facility]; Marcelle Pizarro, [facility] letter sent: Daniela 3 Followup Reading location: [facility] OVERALL STUDY BIRADS: Category 3: Probably Benign us Sherwin Cuba MD IMG MAMMO ORDERABLES Final Result * (ABNORMAL) CMP (Comprehensive Metabolic Panel) (07/10/2024 12:15 PM CDT) SODIUM 138 136 - 145 mmol/L 07/10/2024 12:52 PM CDT [facility] POTASSIUM 3.2(L) 3.5 - 5.1 mmol/L 07/10/2024 12:52 PM CDT [facility] CHLORIDE 104 98 - 107 mmol/L 07/10/2024 12:52 PM CDT [facility] CO2, VENOUS 22 22 - 30 mmol/L 07/10/2024 12:52 PM CDT [facility] ANION GAP 15.2 <18.0 mmol/L 07/10/2024 12:52 PM CDT [facility] GLUCOSE 187(H) 70 - 99 mg/dL 07/10/2024 12:52 PM CDT [facility] BUN 8 5 - 18 mg/dL 07/10/2024 12:52 PM CDT [facility] CREATININE, BLOOD 0.73 0.60 - 1.00 mg/dL 07/10/2024 12:52 PM CDT [facility] BUN/CREATININE RATIO 11(L) 12 - 20 ratio 07/10/2024 12:52 PM CDT [facility] TOTAL PROTEIN 6.6 6.3 - 8.2 g/dL 07/10/2024 12:52 PM CDT [facility] ALBUMIN 3.3(L) 3.5 - 5.0 g/dL 07/10/2024 12:52 PM CDT [facility] A/G RATIO 1.0 1.0 - 2.2 07/10/2024 12:52 PM CDT [facility] CALCIUM 8.3(L) 8.7 - 10.5 mg/dL 07/10/2024 12:52 PM CDT [facility] T BILI 0.6 0.2 - 1.2 mg/dL 07/10/2024 12:52 PM CDT [facility] SGOT (AST) 45(H) 5 - 34 U/L 07/10/2024 12:52 PM CDT [facility] SGPT (ALT) 37 0 - 55 U/L 07/10/2024 12:52 PM CDT [facility] ALKALINE PHOSPHATASE 84 40 - 150 U/L 07/10/2024 12:52 PM CDT [facility] GFR, ESTIMATED >60 >=60 07/10/2024 12:52 PM CDT [facility] Comment: Creatinine Clearance is the preferred criteria for selecting drug dose adjustments in renally impaired patients. The GFR is provided as additional pertinent clinical information. GFR is reported in mL/min/1.73 sq m. Calculation based on the Chronic Kidney Disease Epidemiology Collaboration (CKD- EPI) equation refit without adjustment for race. GFR, EST. >60 >=60 024 12:52 PM CDT [facility] GFR, EST. NONAFRICAN >60 >=60 07/10/2024 12:52 PM CDT [facility] Blood Venipuncture / Unknown 07/10/2024 12:15 PM CDT 07/10/2024 12:30 PM CDT Nicolasa Bonilla APRN, DINING ROOM MAID CHEMISTRY ORDERABLES Final Result [facility] [address] [place] [address] * (ABNORMAL) HEMOGLOBIN A1C W/ ESTIMATED GLUCOSE (02/17/2019 10:47 AM CDT) HGB-A1C 8.3(H) 4.0 - 6.0 % 02/17/2019 2:18 PM CDT [facility] Est Average Glucose 191.5 mg/dL 02/17/2019 2:18 PM CDT [facility] Blood specimen (specimen) Venipuncture / Unknown 02/17/2019 10:47 AM CDT 02/17/2019 10:47 AM CDT Narrative [facility] - 02/17/2019 2:18 PM CDT HEMOGLOBIN A1C: DIABETIC PATIENTS: WELL-CONTROLLED: 6.2 - 7.0 INTERMEDIATE WELL-CONTROLLED: 7.0 - 9.0 POORLY-CONTROLLED: >9.0 us John Lomax MD CHEMISTRY ORDERABLES Ce schaefer Result [facility] [address] [place] [address] from Last 3 Months or Most Recently Relevant to Health Maintenance Care Teams Journeyman Plumber Relationship Specialty Start Date End Date John Lomax MD [address] [place] [address] PCP - General Internal Medicine 11/05/23 Bertha Pérez, PILL PACKER, DINING ROOM MAID [address] [facility] [address] [facility] [address] [place] [address] Nurse Practitioner Gynecology 11/05/23 Sherwin Cuba MD [address] [facility] [address] [place] [address] Consulting Physician General Surgery 07/25/24
--- OUTSIDE RECORDS SUMMARY | 2025-02-20 02:30 | XMS_ITS | Clinical Summary ---
Author Organization [facility] Address [address] [place] [address] Care Team Providers Care Leather Craftsman Name Role Phone John Lomax MD Primary Care Provider + Atilio Carl MD Unavailable [phone] Eunice Soto MD Unavailable Sae Hawkins MD PhD Unavailable + Allergies Active Allergy Reactions Criticality Noted Date Comments [place] Oil Anaphylaxis High Cephalosporins Nausea & Vomiting [...] surgery Assessment & Plan (10/20/2018 10:03 AM CVICU RN): Wean Oxycodone prior to discharge Teach splinting Added gabapentin yesterday Assessment & Plan (10/12/2018 7:06 PM CVICU RN): Remaining drowsy post-op with respiratory acidosis. -Lido patches -Schedule Tylenol -Oxy PRN -Dilaudid PRN Increase OXY to 10mg PRN Assessment & Plan (10/12/2018 5:15 AM CVICU RN): Remaining drowsy post-op with respiratory acidosis. -Lido patches -Schedule Tylenol -Will try to avoid narcs at this time Additional Care: Better mentation overnight, given 1 dose Oxy and 1 dose of Dilaudid, tolerating well. Continues to endorsing pain. Will increase frequency as tolerated. Improving ABG Assessment & Plan (10/11/2018 6:55 PM CVICU RN): Expected post-op. Given Fent 200mcg on [...] with accu cks QID BS well controlled personal development educator met with pt and provided education/supplies for TID testing at discharge Assessment & Plan (03/27/2023 10:17 AM CDT): Pt denies dx HgbA1c 6.4 (137) Currently on SSI with accu cks QID BS well controlled personal development educator met with pt and provided education/supplies for TID testing at discharge Assessment & Plan (03/26/2023 1:03 PM CDT): Pt denies dx HgbA1c 6.4 (137) Currently on SSI with accu cks QID BS well controlled personal development educator met with pt and provided education/supplies for TID testing at discharge Assessment & Plan (03/23/2023 2:11 PM CDT): Pt denies dx HgbA1c 6.4 (137) Currently on SSI with accu cks QID BS well controlled personal development educator met with pt and provided education/supplies [...] insulin. Assessment & Plan (10/26/2018 12:35 PM CVICU RN): Continue lantus and sliding scale Assessment & Plan (10/20/2018 1:21 PM CVICU RN): Over the past 24 hours, her [...] today, please call Ryann Owens NP, at [phone]. If it is after hours, please call the Diabetes Fellow at [phone]. Assessment & Plan (10/19/2018 3:10 PM CVICU RN): Over the past 24 hours, her [...] today, please call the Diabetes Fellow at [phone]. Assessment & Plan (10/14/2018 4:58 PM CVICU RN): Over the previous 24 hours, blood [...] today, please call Yoanna Louise NP at [phone]. If after hours, please contact the Diabetes Fellow at [phone].. Assessment & Plan (10/13/2018 4:06 PM CVICU RN): Over the previous 24 hours, blood [...] today, please call Yoanna Louise NP at [phone]. If after hours, please contact the Diabetes Fellow at [phone].. Assessment & Plan (10/12/2018 7:12 PM CVICU RN): Pt has increased insulin requirement likely [...] call SATINDER / Inocencia Byrne M.D. At [phone] for any questions. If after 5 PM or weekends, please contact the Diabetes Fellow at [phone], option #1 Tentative Discharge Plan: We will consider DC home on orals vs GLP1 agonist like Victoza with adding metformin afterward if GLP1 is well controlled. Follow up: She wants to follow up with our Endocrinology clinic. Will request an appointment prior to discharge. Recommendations for diabetes management were discussed with the primary team. Assessment & Plan (10/12/2018 7:05 PM CVICU RN): Arrived with insulin gtt at 24u/hr. Pt diagnosed with DMII this admission. HgbA1C ~9. Endo consulted. Remains on insulin gtt @ 5u/hr this am. -f/u with Endo for insulin regimen to transition off gtt Endo recs: -NPH 20u q 8 (stop insulin gtt two hours after NPH administration) -SSI -post prandial if eats >50% of meal Assessment & Plan (10/10/2018 2:59 PM CVICU RN): Over the previous 24 hours, blood [...] today, please call Yoanna Louise NP at [phone]. If after hours, please contact the Diabetes Fellow at [phone]. Assessment & Plan (10/07/2018 2:42 PM CVICU RN): Over the previous 24 hours, blood [...] today, please call Yoanna Louise NP at [phone]. If after hours, please contact the Diabetes Fellow at [phone]. Assessment & Plan (10/06/2018 6:01 PM CVICU RN): Over the previous 24 hours, blood [...] today, please call Yoanna Louise NP at [phone]. If after hours, please contact the Diabetes Fellow at [phone]. Assessment & Plan (10/20/2018 10:02 AM CVICU RN): New diagnosis of DM Hgb A1c on admission = 9.1 Seen by clinical unit educator- taught glucometer use and trulicity pen. F/u endocrine discharge recs Assessment & Plan (10/05/2018 7:21 PM CVICU RN): 43 yoF with HTN, obesity (BMI [...] (07/13/2018): Added automatically from request for surgery [id number] Menorrhagia with regular cycle 06/30/2018 Overview (06/30/2018): Added automatically from request for surgery [id number] Rib sprain, initial encounter 12/17/2017 Current smoker [...] discharge. Assessment & Plan (10/12/2018 5:22 PM CVICU RN): H/o asthma. Smoking up to admission. -albuterol PRN Assessment & Plan (10/11/2018 6:37 PM CVICU RN): H/o asthma. Smoking up to admission. -albuterol PRN Assessment & Plan (10/05/2018 8:27 AM CVICU RN): Continue the prn albuteral. Fatigue due to excessive exertion Elevated lactic acid level Chest pain, musculoskeletal Assessment & Plan (03/08/2023 4:24 PM CDT): C/p indescribable chest pain-denies radiation of pain, N/V, SOB, diaphoresis Likely musculoskeletal Order [place] for prn use Assessment & Plan (03/07/2023 2:21 PM CDT): C/p indescribable chest pain-denies radiation of pain, N/V, SOB, diaphoresis Likely musculoskeletal Order [place] for prn use Assessment & Plan (03/06/2023 1:03 PM CDT): C/p indescribable chest pain-denies radiation of pain, N/V, SOB, diaphoresis Likely musculoskeletal Order [place] for prn use Left ventricular hypertrophy Moderate [...] 10/26/2018 Assessment & Plan (10/20/2018 10:03 AM CVICU RN): Stable on multiple cxr. Asymptomatic Atelectasis 10/11/2018 10/19/2018 Assessment & Plan (10/13/2018 12:41 PM CVICU RN): Small lung volumes on CXR- Continue O2, IS, acepella Assessment & Plan (10/12/2018 5:31 PM CVICU RN): Extubated yesterday evening, required Bipap overnight -Keep sats >92% -Aggressive pulmonary hygiene -OOBCT/ambulate -lasix 20mg for diuresis to achieve negative FB Assessment & Plan (10/12/2018 2:36 AM CVICU RN): Extubated, requiring 6L Nasal cannula. ABG with slight respiratory acidosis -BiPAP now, will plan to keep on overnight -Avoid narcs until more awake -Keep sats >92% -ABG tonight -Aggressive pulmonary hygiene Assessment & Plan (10/11/2018 7:01 PM CVICU RN): Pt arrived intubated and sedated on [...] bedside. Nasal trumpet placed. Pt extubated to IN. Plan for pt to wear nasal CPAP [...] results Assessment & Plan (10/26/2018 12:38 PM CVICU RN): Wbc 15.3 Continue broad spectrum abx UA negative No drainage from sternal wound Assessment & Plan (10/20/2018 10:03 AM CVICU RN): Remains afebrile WBC stable Assessment & Plan (10/12/2018 5:37 PM CVICU RN): WBC ~17 post-op down trending to ~12. Likely 2/2 to surgery and bypass run. No infectious concerns at this time -augusto-op antibiotics to complete today -cbc with am labs Assessment & Plan (10/11/2018 6:00 PM CVICU RN): WBC ~17 post-op. Likely 2/2 to surgery and bypass run. No infectious concerns at this time -augusto-op antibiotics -cbc with am labs Postoperative hypovolemic shock 10/11/2018 10/13/2018 Assessment & Plan (10/11/2018 7:00 PM CVICU RN): Pt arrived on NE at 0.06. Post-CPB ECHO with under-filled LV, LHV, and but normal biventricular function. Pt received 1.5L crystalloid, 750 albumin, and 475 cell saver. CVP 8-10. HR 90-100 -Albumin 500ml -NE to maintain MAP >65 but SBP <120 BMI 50.0-59.9, adult ([facility]) 10/06/2018 03/19/2023 Overview (07/06/2021): Last Assessment & [...] understanding Assessment & Plan (10/14/2018 4:54 PM CVICU RN): Complicated DM management Assessment & Plan (10/12/2018 7:13 PM CVICU RN): Complicated DM management Assessment & Plan (10/13/2018 12:41 PM CVICU RN): Fall precautions Using bariatric equipment. High risk medication use 10/05/201811/2018 Assessment & Plan (10/20/2018 1:21 PM CVICU RN): This patient is at high risk [...] appetite. Assessment & Plan (10/19/2018 3:00 PM CVICU RN): This patient is at high risk [...] appetite. Assessment & Plan (10/14/2018 4:54 PM CVICU RN): This patient is at high risk [...] appetite. Assessment & Plan (10/13/2018 4:02 PM CVICU RN): This patient is at high risk [...] appetite. Assessment & Plan (10/12/2018 7:13 PM CVICU RN): This patient is at high risk [...] appetite. Assessment & Plan (10/10/2018 2:58 PM CVICU RN): This patient is at high risk for metabolic deterioration related to being on insulin therapy in the setting of multiple co-morbidities. Intensive monitoring is needed to allow for safe, targeted dosing of insulin. Adjustments in dosing will be made based on the blood sugar monitoring and patient variables. Assessment & Plan (10/07/2018 2:37 PM CVICU RN): This patient is at high risk for metabolic deterioration related to being on insulin therapy in the setting of multiple co-morbidities. Intensive monitoring is needed to allow for safe, targeted dosing of insulin. Adjustments in dosing will be made based on the blood sugar monitoring and patient variables. Assessment & Plan (10/06/2018 5:57 PM CVICU RN): This patient is at high risk for metabolic deterioration related to being on insulin therapy in the setting of multiple co-morbidities. Intensive monitoring is needed to allow for safe, targeted dosing of insulin. Adjustments in dosing will be made based on the blood sugar monitoring and patient variables. Assessment & Plan (10/05/2018 7:22 PM CVICU RN): This patient is at high risk for metabolic deterioration related to being on insulin therapy in the setting of multiple co-morbidities. Intensive monitoring is needed to allow for safe, targeted dosing of insulin. Adjustments in dosing will be made based on the blood sugar monitoring and patient variables. Aortic stenosis 09/29/2018 03/19/2023 Overview (09/29/2018): Added automatically from request for surgery [id number] Assessment & Plan (03/08/2023 4:24 PM CDT): [...] 160. Assessment & Plan (10/26/2018 12:38 PM CVICU RN): s/p bio AVR w/ aortoplasty with a 25mm Avalus valve 10/11/18 Was discharged on 10/21/18 Presented to her local ED with left pain under her breast Was admitted to [facility] due to murmur heard on exam and WBC -placed on abx -TTE ordered Assessment & Plan (10/20/2018 1:21 PM CVICU RN): Will require good glycemic control to facilitate healing after surgery. Assessment & Plan (10/19/2018 3:00 PM CVICU RN): Will require good glycemic control to facilitate healing after surgery. Assessment & Plan (10/14/2018 4:54 PM CVICU RN): Will require good glycemic control to facilitate healing after surgery. Assessment & Plan (10/13/2018 4:03 PM CVICU RN): Will require good glycemic control to facilitate healing after surgery. Assessment & Plan (10/12/2018 7:13 PM CVICU RN): Will require good glycemic control to facilitate healing after surgery. Assessment & Plan (10/12/2018 5:22 PM CVICU RN): S/p bio AVR and aortoplasty. Post-op care to include: - DVT ppx: SCDs to BLE and SQH - infection ppx: augusto-op antibiotics to complete today - Nutrition plan: ADAT - Bowel regimen: colace and senna - PT to evaluate and treat - Metoprolol 6.25 Assessment & Plan (10/11/2018 5:58 PM CVICU RN): S/p bio AVR and aortoplasty. Post-op [...] treat Assessment & Plan (10/10/2018 2:58 PM CVICU RN): Will require good glycemic control to facilitate healing after surgery. Assessment & Plan (10/07/2018 2:44 PM CVICU RN): Will require good glycemic control to facilitate healing after surgery. Assessment & Plan (10/20/2018 10:01 AM CVICU RN): S/p bio AVR POD #8 Continue ASA, beta anita. Sternal drainage, betadine paint, Continue bactrim DS. Pelvic pain in female 06/30/20182017 Overview (06/30/2018): Added automatically from request for surgery [id number] Acute bronchitis 12/17/2017 10/05/2018 Bronchospasm with bronchitis, [...] Medical Right knee surg . 2003; Comments: [facility] 03/31/2016 - Hx Other Medical 2005; Comments: [facility] 03/31/2016 - Hx Other Medical Left knee arthr oscopic medial meniscectomy on 04-21; Comments: [facility] 05/11/2016 - Hypertension Hypertension Asthma Asthma; Comments : [facility] 08/20/2016 - Hx Other Medical breast problems ; Comments: [facility] 08/20/2016 - Hx Other Medical ; Outc [...] aorti c valve replacement BMI 50.0-59.9, adult ([facility]) ([facility]) 10/06/2018 Last Assessment & Plan: Discussed and [...] week 03/11/2023 How often do you attend [facility] or amish services? Never 03/11/2023 Do you belong to any clubs o r organizations such as jew groups, unions, fraternal or athletic groups, or [...] staff should administer the PHQ-9) 0 03/27/2023 [facility] - Occupational Stress Questionnaire Answer Date [...] place to sleep or slept in a fci (including now)? No 03/11/2023 Personal Safety Answer Date Recorded Have you ever been in or are you currently in a harmful physical or emotional relationship or is someone making you feel afraid or unsafe? Denies 05/07/2024 Comments No Sex and Gender Information Value Date Recorded Sex Assigned at Not on file Legal Sex Female 12:14 AM CVICU RN Gender Identity Not on file Sexual [...] Completed 03/09/2023 Medical Devices Implanted Type Area Digital Account Executive Device Identifier Shelf Expiration Date Model / Serial / Lot Bard Peripheral Vascular [id number] Ultraclip Bard 17ga 12cm 2 Trigger Permanent Ultrasound - [id number] - [id number] Implanted:Qty: 1 on 07/24/2021 by Pepito Batista MD at [facility] Breast Right: Breast Bard Peripheral Vascular 04/21/2024 [id number] / [id number] / Description:Implanted Right Breast Retroareolar Bard Peripheral Vascular [id number] Ultraclip Bard 17ga 10cm 2 Trigger Permanent Ultrasound - [id number] - [id number] Implanted:Qty: 1 on 07/24/2021 by Pepito Batista MD at [facility] Breast Right: Breast Bard Peripheral Vascular 04/21/2024 [id number] / [id number] / Description:Right Axillary L ymph Node Valve Aortic 25mm 400 Series Ltxfre - [id number] - [id number] Implanted:Qty: 1 on 10/11/2018 by Eunice Soto MD at [facility] Other - see comments Medtronic Inc 07/22/2019 [id number] / [id number] / Description:Aortic Valve Medtronic Card Vasc Surgery [id number] Streamline 53cm Temporary Bipolar Coaxial Myocardium Lead Pacing Latex Free - [id number] - [id number] Implanted:Qty: 1 on 10/11/2018 by Eunice Soto MD at [facility] Medtronic Card Vasc Surgery 08/17/2020 [id number] / [id number] / Description:Temporary Ventri cular pacing wire Spicer [employer]iences Inspiris Resilia Leaflet Aortic Valve 25mm [id number] - [id number] - [id number] Implanted:Qty: 1 on 03/09/2023 by Eunice Soto MD at [facility] N/A: Chest [employer] [id number] 11/15/2026 [id number] / [id number] / Wl [employer] 15x5cm Thk.6mm Patch Cardiovascular Loret[employer]Irvin [employer]ile [id number] - [id number] - [id number] Implanted:Qty: 1 on 03/09/2023 by Eunice Soto MD at [facility] N/A: Chest Wl [employer] [id number] 07/28/2026 [id number] / [id number] / Procedures Procedure Name Priority Date/Time Associated [...] LAB BLOOD ORDERABLE S Final Result [facility] REPLACED BY [facility] [place] [facility] Department [place] [place] [address] * Hepatitis C antibody (03/09/2023 [...] WOODY RAI Final Result Performing Organization Address [facility] de Phone Number [facility] Department [place] [address] * (ABNORMAL) Hemoglobin A1c (03/05/2023 6:02 PM CDT) Hgb A1C 6.4(H) 4.0 - 5.6 % [facility] Estimated Average Glucose 137 mg/dL [facility] Comment: The ADA recommends reporting an [...] ORDERABLES Final Resul t Performing Organization Address [facility] Co de Phone Number [facility] Department [place] [address] * (ABNORMAL) Lipid panel (03/05/2023 6:02 PM CDT) Cholesterol 130 30 - 199 mg/dL [facility] Comment: Interpretive Data Ages < or [...] revised on 2018. Triglycerides 88 <=149 mg/dL [facility] Comment: Interpretive Data Ages < or [...] revised on 2018. HDL 39(L) >=40 mg/dL [facility] Comment: Interpretive Data Ages < or [...] on 2018. LDL, calculated 73 <=129 mg/dL [facility] Comment: Interpretive Data Ages < or [...] revised on 2018. Non-HDL Cholesterol 91 mg/dL [facility] Comment: Interpretive Data Ages < or [...] LAB BLOOD ORDERABLES Final Resul t SUN[facility] Department [place] [address] * (ABNORMAL) DIAGNOSTIC MAMMOGRAM BILATERAL W ELIZA [...] 5 mm in thickness. us Bertha Ortega SPORT SHOE SPIKE ASSEMBLER IMG MAMMO PROCEDURES Ce l Result * [...] intraep ithelial lesion or malignancy. Infection: CANCELED [facility] - Comment:Result canceled by t he ancillary COMMENTS [facility] - Comment: This Pap test has been evaluated with computer assisted technology. Ems Educator [facility] - Comment: AMW, CT(ASCP) CT screening location: [place] [address] [place] [address] Review rock worker CANCELED [facility] - Comment:Result canceled by t he ancillary Pathologist CANCELED [facility] - Comment:Result canceled by t he ancillary Comment [facility] - Comment: EXPLANATORY NOTE: The [...] High Risk E6/E7 Not Detected Not Detected [facility] Comment: This test was performed using the APTIMA HPV Assay ([employer] This assay detects E6/E7 viral messenger RNA (mRNA) from 14 high-risk HPV types (16,18,31,33,35,39,45,51,52,56,58,59,66,68). The analytical performance characteristics of this assay have been determined by [facility]. The modifications have not been cleared or approved by the FDA. This assay has been validated pursuant to the CLIA regulations and is used for clinical purposes. Endocervical/vag inal 05/03/2018 10:56 AM CDT 05/04/2018 6:19 AM CDT Narrative Resulting Agency Comment Performing Organization Information: Site ID: [place] [facility] Address: [address] [place] [address] Director: Jamie Morales D.O., MPH Site ID: Name: [facility] Address: [address] [place] [address] Director: Arnold Diaz Abdirahman Kirkpatrick MD LAB PATHOLOGY ORDERABLES F inal Result [facility] [place] [facility], [place] from Last 3 Months or Most Recently Relevant to Health Maintenance Insurance [facility] CHOICE PLUS Advance Directives For more information, please contact: [phone] Documents on File Type Date Recorded Patient Radiology Physician Assistant Expl anation ADVANCE DIRECTIVE 04/01/2023 11:13 AM POWER OF FORK LIFT TRUCK OPERATOR-MEDICAL ADVANCE DIRECTIVE 03/15/2023 11:28 AM RUPAL R OF FORK LIFT TRUCK OPERATOR-MEDICAL * Full Code (Latest Code Status on [...] 1:56 PM 10/27/2018 6:42 PM Care Teams Leather Craftsman Relationship Specialty Start Date End Date John Lomax MD PCP - General 08/20/16 Atilio Carl MD Referring Physician Cardiology 09/02/18 Eunice Soto MD [id number] [place] [address] Surgeon Cardiothoracic Surgery 03/29/23 Sae Hawkins MD PhD [id number] [place] [address] Consulting Physician Cardiology 03/29/23
== END 2025-02-20 01:37 | disposition left against medical advice (07) ==
LOC: ANHED 02-20 02:28
PROVIDERS: PCP Internal Medicine
DX: N61.1 Abscess of the breast and nipple (principal)
CPT/HCPCS: 99199

== ENCOUNTER 2025-05-26 11:45 | Emergency (ER) | payer SELFPAY ==
--- NOTE | ~2025-05-26 | XR_ITS ---
EXAMINATION: XR chest 2V DATE: 05/26/2025 12:08 INDICATION: Shortness of breath and cough TECHNIQUE: PA and lateral views of the chest were obtained. COMPARISON: Chest radiograph dated 10/28/2024 FINDINGS: Persistent opacity at the anterior right lower lung zone obscuring the right heart border most likely representing a pericardial fat pad. No other airspace opacities, pulmonary edema, pleural effusion o r pneumothorax. Heart size is normal. Median sternotomy wires and mediastinal surgical clips are seen , likely from prior coronary artery bypass grafting. There has also been prior aortic valve repair. V isualized bones and soft tissues are unremarkable. IMPRESSION: 1. Unchanged opacities at the anteromedial right lung base with differential including paracardial fa t pad, atelectasis or pneumonia. Favor the former. Reviewed, dictated and finalized at location A. IMPRESSION: 1. Unchanged opacities at the anteromedial right lung base with differential in cluding paracardial fat pad, atelectasis or pneumonia. Favor the former.
--- OUTSIDE RECORDS SUMMARY | 2025-05-26 11:48 | XMS_ITS | Clinical Summary ---
Author Organization [email or web address] Address [address] [place] [address] Care Team Providers Care Fashion Intern Name Role Phone Unavailable Primary Care Provider Unavailabl e Source Comments [email or web address],non-owned Affiliates and Associated Physician Practices is amultiple site organization consisting of ambulatory clinics and hospital sitesin [place], [place], [place] and [place]. This disclosure is being madepursuant to the Care Everywhere program and may not contain all information available regarding this patient. Last updated 18.[email or web address] Social History Tobacco Use Types Packs/Day Years Used Date Smoking Tobacco: Never Assessed Comments Unknown Sex and Gender Information Value Date Recorded Sex Assigned at Not on file Legal Sex Female 6:19 AM MARKETING DIRECTOR ASSISTED LIVING Gender Identity Not on file Sexual Orientation [...] season) 2024 DEPRESSION SCREENING 10/25/2024 INFLUENZA VACCINE (#1) 2025 ZOSTER VACCINE (1 of 2) 2027 [...]
--- OUTSIDE RECORDS SUMMARY | 2025-05-26 11:48 | XMS_ITS | Clinical Summary ---
Author Organization [facility] Medical Office Building [address] Address [address] [place] [address] Care Team Providers Care Paper Cone Grader Name Role Phone John Lomax MD Primary Care Provider + Atilio Carl MD Unavailable [phone] Eunice Soto MD Unavailable Sae Hawkins MD PhD Unavailable + Allergies Active Allergy Reactions Criticality Noted Date Comments [place] Oil Anaphylaxis High Cephalosporins Nausea & Vomiting [...] surgery Assessment & Plan (10/20/2018 10:03 AM MIXING AND MOLDING MACHINE OPERATOR): Wean Oxycodone prior to discharge Teach splinting Added gabapentin yesterday Assessment & Plan (10/12/2018 7:06 PM MIXING AND MOLDING MACHINE OPERATOR): Remaining drowsy post-op with respiratory acidosis. -Lido patches -Schedule Tylenol -Oxy PRN -Dilaudid PRN Increase OXY to 10mg PRN Assessment & Plan (10/12/2018 5:15 AM MIXING AND MOLDING MACHINE OPERATOR): Remaining drowsy post-op with respiratory acidosis. -Lido patches -Schedule Tylenol -Will try to avoid narcs at this time Additional Care: Better mentation overnight, given 1 dose Oxy and 1 dose of Dilaudid, tolerating well. Continues to endorsing pain. Will increase frequency as tolerated. Improving ABG Assessment & Plan (10/11/2018 6:55 PM MIXING AND MOLDING MACHINE OPERATOR): Expected post-op. Given Fent 200mcg on arrival [...] with accu cks QID BS well controlled telehealth nurse educator met with pt and provided education/supplies for TID testing at discharge Assessment & Plan (03/27/2023 10:17 AM CDT): Pt denies dx HgbA1c 6.4 (137) Currently on SSI with accu cks QID BS well controlled telehealth nurse educator met with pt and provided education/supplies for TID testing at discharge Assessment & Plan (03/26/2023 1:03 PM CDT): Pt denies dx HgbA1c 6.4 (137) Currently on SSI with accu cks QID BS well controlled telehealth nurse educator met with pt and provided education/supplies for TID testing at discharge Assessment & Plan (03/23/2023 2:11 PM CDT): Pt denies dx HgbA1c 6.4 (137) Currently on SSI with accu cks QID BS well controlled telehealth nurse educator met with pt and provided education/supplies [...] insulin. Assessment & Plan (10/26/2018 12:35 PM MIXING AND MOLDING MACHINE OPERATOR): Continue lantus and sliding scale Assessment & Plan (10/20/2018 1:21 PM MIXING AND MOLDING MACHINE OPERATOR): Over the past 24 hours, her blood [...] today, please call Ryann Owens NP, at [phone]. If it is after hours, please call the Diabetes Fellow at [phone]. Assessment & Plan (10/19/2018 3:10 PM MIXING AND MOLDING MACHINE OPERATOR): Over the past 24 hours, her blood [...] today, please call the Diabetes Fellow at [phone]. Assessment & Plan (10/14/2018 4:58 PM MIXING AND MOLDING MACHINE OPERATOR): Over the previous 24 hours, blood glucose [...] today, please call Yoanna Louise NP at [phone]. If after hours, please contact the Diabetes Fellow at [phone].. Assessment & Plan (10/13/2018 4:06 PM MIXING AND MOLDING MACHINE OPERATOR): Over the previous 24 hours, blood glucose [...] today, please call Yoanna Louise NP at [phone]. If after hours, please contact the Diabetes Fellow at [phone].. Assessment & Plan (10/12/2018 7:12 PM MIXING AND MOLDING MACHINE OPERATOR): Pt has increased insulin requirement likely due [...] call SATINDER / Inocencia Byrne M.D. At [phone] for any questions. If after 5 PM or weekends, please contact the Diabetes Fellow at [phone], option #1 Tentative Discharge Plan: We will consider DC home on orals vs GLP1 agonist like Victoza with adding metformin afterward if GLP1 is well controlled. Follow up: She wants to follow up with our Endocrinology clinic. Will request an appointment prior to discharge. Recommendations for diabetes management were discussed with the primary team. Assessment & Plan (10/12/2018 7:05 PM MIXING AND MOLDING MACHINE OPERATOR): Arrived with insulin gtt at 24u/hr. Pt diagnosed with DMII this admission. HgbA1C ~9. Endo consulted. Remains on insulin gtt @ 5u/hr this am. -f/u with Endo for insulin regimen to transition off gtt Endo recs: -NPH 20u q 8 (stop insulin gtt two hours after NPH administration) -SSI -post prandial if eats >50% of meal Assessment & Plan (10/10/2018 2:59 PM MIXING AND MOLDING MACHINE OPERATOR): Over the previous 24 hours, blood glucose [...] today, please call Yoanna Louise NP at [phone]. If after hours, please contact the Diabetes Fellow at [phone]. Assessment & Plan (10/07/2018 2:42 PM MIXING AND MOLDING MACHINE OPERATOR): Over the previous 24 hours, blood glucose [...] today, please call Yoanna Louise NP at [phone]. If after hours, please contact the Diabetes Fellow at [phone]. Assessment & Plan (10/06/2018 6:01 PM MIXING AND MOLDING MACHINE OPERATOR): Over the previous 24 hours, blood glucose [...] today, please call Yoanna Louise NP at [phone]. If after hours, please contact the Diabetes Fellow at [phone]. Assessment & Plan (10/20/2018 10:02 AM MIXING AND MOLDING MACHINE OPERATOR): New diagnosis of DM Hgb A1c on admission = 9.1 Seen by staff educator- taught glucometer use and trulicity pen. F/u endocrine discharge recs Assessment & Plan (10/05/2018 7:21 PM MIXING AND MOLDING MACHINE OPERATOR): 43 yoF with HTN, obesity (BMI 54), [...] (07/13/2018): Added automatically from request for surgery [id number] Menorrhagia with regular cycle 06/30/2018 Overview (06/30/2018): Added automatically from request for surgery [id number] Rib sprain, initial encounter 12/17/2017 Current smoker [...] discharge. Assessment & Plan (10/12/2018 5:22 PM MIXING AND MOLDING MACHINE OPERATOR): H/o asthma. Smoking up to admission. -albuterol PRN Assessment & Plan (10/11/2018 6:37 PM MIXING AND MOLDING MACHINE OPERATOR): H/o asthma. Smoking up to admission. -albuterol PRN Assessment & Plan (10/05/2018 8:27 AM MIXING AND MOLDING MACHINE OPERATOR): Continue the prn albuteral. Fatigue due to excessive exertion Elevated lactic acid level Chest pain, musculoskeletal Assessment & Plan (03/08/2023 4:24 PM CDT): C/p indescribable chest pain-denies radiation of pain, N/V, SOB, diaphoresis Likely musculoskeletal Order Novelty for prn use Assessment & Plan (03/07/2023 2:21 PM CDT): C/p indescribable chest pain-denies radiation of pain, N/V, SOB, diaphoresis Likely musculoskeletal Order Novelty for prn use Assessment & Plan (03/06/2023 1:03 PM CDT): C/p indescribable chest pain-denies radiation of pain, N/V, SOB, diaphoresis Likely musculoskeletal Order Novelty for prn use Left ventricular hypertrophy Moderate [...] 10/26/2018 Assessment & Plan (10/20/2018 10:03 AM MIXING AND MOLDING MACHINE OPERATOR): Stable on multiple cxr. Asymptomatic Atelectasis 10/11/2018 10/19/2018 Assessment & Plan (10/13/2018 12:41 PM MIXING AND MOLDING MACHINE OPERATOR): Small lung volumes on CXR- Continue O2, IS, acepella Assessment & Plan (10/12/2018 5:31 PM MIXING AND MOLDING MACHINE OPERATOR): Extubated yesterday evening, required Bipap overnight -Keep sats >92% -Aggressive pulmonary hygiene -OOBCT/ambulate -lasix 20mg for diuresis to achieve negative FB Assessment & Plan (10/12/2018 2:36 AM MIXING AND MOLDING MACHINE OPERATOR): Extubated, requiring 6L Nasal cannula. ABG with slight respiratory acidosis -BiPAP now, will plan to keep on overnight -Avoid narcs until more awake -Keep sats >92% -ABG tonight -Aggressive pulmonary hygiene Assessment & Plan (10/11/2018 7:01 PM MIXING AND MOLDING MACHINE OPERATOR): Pt arrived intubated and sedated on precedex. [...] bedside. Nasal trumpet placed. Pt extubated to PA. Plan for pt to wear nasal CPAP [...] results Assessment & Plan (10/26/2018 12:38 PM MIXING AND MOLDING MACHINE OPERATOR): Wbc 15.3 Continue broad spectrum abx UA negative No drainage from sternal wound Assessment & Plan (10/20/2018 10:03 AM MIXING AND MOLDING MACHINE OPERATOR): Remains afebrile WBC stable Assessment & Plan (10/12/2018 5:37 PM MIXING AND MOLDING MACHINE OPERATOR): WBC ~17 post-op down trending to ~12. Likely 2/2 to surgery and bypass run. No infectious concerns at this time -augusto-op antibiotics to complete today -cbc with am labs Assessment & Plan (10/11/2018 6:00 PM MIXING AND MOLDING MACHINE OPERATOR): WBC ~17 post-op. Likely 2/2 to surgery and bypass run. No infectious concerns at this time -augusto-op antibiotics -cbc with am labs Postoperative hypovolemic shock 10/11/2018 10/13/2018 Assessment & Plan (10/11/2018 7:00 PM MIXING AND MOLDING MACHINE OPERATOR): Pt arrived on NE at 0.06. Post-CPB ECHO with under-filled LV, LHV, and but normal biventricular function. Pt received 1.5L crystalloid, 750 albumin, and 475 cell saver. CVP 8-10. HR 90-100 -Albumin 500ml -NE to maintain MAP >65 but SBP <120 BMI 50.0-59.9, adult ([facility]) 10/06/2018 03/19/2023 Overview (07/06/2021): Last Assessment & [...] understanding Assessment & Plan (10/14/2018 4:54 PM MIXING AND MOLDING MACHINE OPERATOR): Complicated DM management Assessment & Plan (10/12/2018 7:13 PM MIXING AND MOLDING MACHINE OPERATOR): Complicated DM management Assessment & Plan (10/13/2018 12:41 PM MIXING AND MOLDING MACHINE OPERATOR): Fall precautions Using bariatric equipment. High risk medication use 10/05/201811/2018 Assessment & Plan (10/20/2018 1:21 PM MIXING AND MOLDING MACHINE OPERATOR): This patient is at high risk for [...] appetite. Assessment & Plan (10/19/2018 3:00 PM MIXING AND MOLDING MACHINE OPERATOR): This patient is at high risk for [...] appetite. Assessment & Plan (10/14/2018 4:54 PM MIXING AND MOLDING MACHINE OPERATOR): This patient is at high risk for [...] appetite. Assessment & Plan (10/13/2018 4:02 PM MIXING AND MOLDING MACHINE OPERATOR): This patient is at high risk for [...] appetite. Assessment & Plan (10/12/2018 7:13 PM MIXING AND MOLDING MACHINE OPERATOR): This patient is at high risk for [...] appetite. Assessment & Plan (10/10/2018 2:58 PM MIXING AND MOLDING MACHINE OPERATOR): This patient is at high risk for metabolic deterioration related to being on insulin therapy in the setting of multiple co-morbidities. Intensive monitoring is needed to allow for safe, targeted dosing of insulin. Adjustments in dosing will be made based on the blood sugar monitoring and patient variables. Assessment & Plan (10/07/2018 2:37 PM MIXING AND MOLDING MACHINE OPERATOR): This patient is at high risk for metabolic deterioration related to being on insulin therapy in the setting of multiple co-morbidities. Intensive monitoring is needed to allow for safe, targeted dosing of insulin. Adjustments in dosing will be made based on the blood sugar monitoring and patient variables. Assessment & Plan (10/06/2018 5:57 PM MIXING AND MOLDING MACHINE OPERATOR): This patient is at high risk for metabolic deterioration related to being on insulin therapy in the setting of multiple co-morbidities. Intensive monitoring is needed to allow for safe, targeted dosing of insulin. Adjustments in dosing will be made based on the blood sugar monitoring and patient variables. Assessment & Plan (10/05/2018 7:22 PM MIXING AND MOLDING MACHINE OPERATOR): This patient is at high risk for metabolic deterioration related to being on insulin therapy in the setting of multiple co-morbidities. Intensive monitoring is needed to allow for safe, targeted dosing of insulin. Adjustments in dosing will be made based on the blood sugar monitoring and patient variables. Aortic stenosis 09/29/2018 03/19/2023 Overview (09/29/2018): Added automatically from request for surgery [id number] Assessment & Plan (03/08/2023 4:24 PM CDT): [...] 160. Assessment & Plan (10/26/2018 12:38 PM MIXING AND MOLDING MACHINE OPERATOR): s/p bio AVR w/ aortoplasty with a 25mm Avalus valve 10/11/18 Was discharged on 10/21/18 Presented to her local ED with left pain under her breast Was admitted to [facility] due to murmur heard on exam and WBC -placed on abx -TTE ordered Assessment & Plan (10/20/2018 1:21 PM MIXING AND MOLDING MACHINE OPERATOR): Will require good glycemic control to facilitate healing after surgery. Assessment & Plan (10/19/2018 3:00 PM MIXING AND MOLDING MACHINE OPERATOR): Will require good glycemic control to facilitate healing after surgery. Assessment & Plan (10/14/2018 4:54 PM MIXING AND MOLDING MACHINE OPERATOR): Will require good glycemic control to facilitate healing after surgery. Assessment & Plan (10/13/2018 4:03 PM MIXING AND MOLDING MACHINE OPERATOR): Will require good glycemic control to facilitate healing after surgery. Assessment & Plan (10/12/2018 7:13 PM MIXING AND MOLDING MACHINE OPERATOR): Will require good glycemic control to facilitate healing after surgery. Assessment & Plan (10/12/2018 5:22 PM MIXING AND MOLDING MACHINE OPERATOR): S/p bio AVR and aortoplasty. Post-op care to include: - DVT ppx: SCDs to BLE and SQH - infection ppx: augusto-op antibiotics to complete today - Nutrition plan: ADAT - Bowel regimen: colace and senna - PT to evaluate and treat - Metoprolol 6.25 Assessment & Plan (10/11/2018 5:58 PM MIXING AND MOLDING MACHINE OPERATOR): S/p bio AVR and aortoplasty. Post-op care [...] treat Assessment & Plan (10/10/2018 2:58 PM MIXING AND MOLDING MACHINE OPERATOR): Will require good glycemic control to facilitate healing after surgery. Assessment & Plan (10/07/2018 2:44 PM MIXING AND MOLDING MACHINE OPERATOR): Will require good glycemic control to facilitate healing after surgery. Assessment & Plan (10/20/2018 10:01 AM MIXING AND MOLDING MACHINE OPERATOR): S/p bio AVR POD #8 Continue ASA, beta antia. Sternal drainage, betadine paint, Continue bactrim DS. Pelvic pain in female 06/30/20182017 Overview (06/30/2018): Added automatically from request for surgery [id number] Acute bronchitis 12/17/2017 10/05/2018 Bronchospasm with bronchitis, acute 12/17/2017 10/05/2018 Chest wall muscle strain, initial encounter 12/17/2017 10/05/2018 Bloody discharge from right nipple 08/18/2017 10/05/2018 Knee pain 03/30/2016 10/26/2018 Overview (01/29/2017): Knee pain Uncontrolled type 2 diabetes mellitus with hyperglycemia 03/05/2023 Encounters Date Type Department Care Team Description 03/07/2025 Documentation [facility] Cardiology [facility] Medical Office Building [address] [place] [address] Altagracia Kelly NP from Last 3 Months Immunizations Immunization Administration [...] Medical Right knee surg . 2003; Comments: ELOINA 03/31/2016 - Hx Other Medical 2005; Comments: ELOINA 03/31/2016 - Hx Other Medical Left knee arthr oscopic medial meniscectomy on 04-21; Comments: ELOINA 05/11/2016 - Hypertension Hypertension Asthma Asthma; Comments : RUBIO 08/20/2016 - Hx Other Medical breast problems ; Comments: Kita 08/20/2016 - Hx Other Medical ; Outc [...] valve replacement BMI 50.0-59.9, adult ([facility]) ([facility]) 10/06/2018 Last Assessment & Plan: Discussed and encouraged weight loss. Also encouraged testing to r/o FLAOK Patient verbalized understanding Leukocytosis 10/11/2018 Shortness of [...] often do you attend chur ch or islam services? Never 03/11/2023 Do you belong to any clubs o r organizations such as episcopal groups, unions, fraternal or athletic groups, or [...] staff should administer the PHQ-9) 0 03/27/2023 [facility] - Occupational Stress [...] on file Legal Sex Female 12:14 AM MIXING AND MOLDING MACHINE OPERATOR Gender Identity Not on file Sexual [...] 11:27 PM CDT Height 167.6 cm (5' 6) 05/07/2024 11:27 PM CDT Body Mass Index [...] 05/03/2018 Regular Well Visit/Exam 18-64 05/03/2019 05/03/2018 Hemoglobin A1C 09/05/2023 03/05/2023, 01/24, 08/03/2019, Additional history exists Depression Screening 03/05/2024 03/05/2023, 02/10/2023, 02/10/2023, Additional history exists eGFR 05/07/2025 05/07/2024, 05/26, 04/05/2023, Additional history exists Influenza Vaccine (#1) 2025 Breast Cancer Screening-Mammogram 08/01/2025 08/01/2024, 08/01/2024, 07/14/2021, Additional history exists Lipid Panel 03/03/2026 03/03/2025, 02/22, 02/11/2023, Additional history exists Hepatitis C Screening Completed 03/09/2023 Medical Devices Implanted Type Area Edge Drummer Device Identifier Shelf Expiration Date Model / Serial / Lot Bard Peripheral Vascular [id number] Ultraclip Bard 17ga 12cm 2 Trigger Permanent Ultrasound - [id number] - [id number] Implanted:Qty: 1 on 07/24/2021 by Pepito Batista MD at [facility] Breast Right: Breast Bard Peripheral Vascular 04/21/2024 [id number] / [id number] / Description:Implanted Right Breast Retroareolar Bard Peripheral Vascular [id number] Ultraclip Bard 17ga 10cm 2 Trigger Permanent Ultrasound - [id number] - [id number] Implanted:Qty: 1 on 07/24/2021 by Pepito Batista MD at [facility] Breast Right: Breast Bard Peripheral Vascular 04/21/2024 [id number] / [id number] / Description:Right Axillary L ymph Node Valve Aortic 25mm 400 Series Ltxfre - [id number] - [id number] Implanted:Qty: 1 on 10/11/2018 by Eunice Soto MD at [facility] Other - see comments Medtronic Inc 07/22/2019 [id number] / [id number] / Description:Aortic Valve Medtronic Card Vasc Surgery [id number] Streamline 53cm Temporary Bipolar Coaxial Myocardium Lead Pacing Latex Free - [id number] - [id number] Implanted:Qty: 1 on 10/11/2018 by Eunice Soto MD at [facility] Medtronic Card Vasc Surgery 08/17/2020 [id number] / [id number] / Description:Temporary Ventri cular pacing wire [employer]icer [employer] Inspiris Resilia Leaflet Aortic Valve 25mm [id number] - [id number] - [id number] Implanted:Qty: 1 on 03/09/2023 by Eunice Soto MD at [facility] N/A: Chest [employer] [id number] 11/15/2026 [id number] / [id number] / Wl [employer] 15x5cm Thk.6mm Patch Cardiovascular [employer] [id number] - [id number] - [id number] Implanted:Qty: 1 on 03/09/2023 by Eunice Soto MD at [facility] N/A: Chest Wl [employer] [id number] 07/28/2026 [id number] / [id number] / Procedures Procedure Name Priority Date/Time Associated [...] MD LAB BLOOD ORDERABLE S Final Result [facility] Department of [employer] [place] [address] * Hepatitis C antibody (03/09/2023 1:05 PM CDT) Pathologist [facility] Hep C Ab Nonreactive Nonreactive [facility] Comment:Antibodies to HCV no t detected. Does NOT exclude the possibility of recent exposure to HCV. Current interpretive data was last revised on 22 Blood 03/09/2023 1:05 PM CDT 03/09/2023 1:39 PM CDT Jori Negron MD LAB MICROBIOLOGY - GENERAL [place] RAI Final Result Performing Organization Address [facility] de Phone Number [facility] [place] [place] [address] * (ABNORMAL) Hemoglobin A1c (03/05/2023 6:02 PM CDT) [facility] Hgb A1C 6.4(H) 4.0 - 5.6 % [facility] Estimated Average Glucose 137 mg/dL [facility] Comment: The ADA recommends reporting an estimated Average Glucose (eAG) with all Hemoglobin A1c results using the equation derived from a study of 507 normal and diabetic adults. Minority populations were underrepresented and children were not included. (Diabetes Care 2020; 43(S1): S66-S76). The eAG is not equivalent to a fasting glucose. Blood 03/05/2023 6:02 PM CDT 03/05/2023 6:21 PM CDT Cheryl Watters NP LAB BLOOD ORDERABLES Final Resul t Performing Organization Address [facility] Co de Phone Number [facility] Department [place] [employer] [place] [place] [address] * (ABNORMAL) Lipid panel (03/05/2023 6:02 PM CDT) [facility] Cholesterol 130 30 - 199 mg/dL [facility] Comment: Interpretive Data Ages < or = [...] revised on 2018. Triglycerides 88 <=149 mg/dL [facility] Comment: Interpretive Data Ages < or = [...] revised on 2018. HDL 39(L) >=40 mg/dL [facility] Comment: Interpretive Data Ages < or = [...] on 2018. LDL, calculated 73 <=129 mg/dL [facility] Comment: Interpretive Data Ages < or = [...] revised on 2018. Non-HDL Cholesterol 91 mg/dL [facility] Comment: Interpretive Data Ages < or = [...] last revised on 2018. Chol/HDL ratio 3 [facility] Blood 03/05/2023 6:02 PM CDT 03/05/2023 6:21 PM CDT Cheryl Watters NP LAB BLOOD ORDERABLES Final Resul t [facility] [place] [address] * (ABNORMAL) DIAGNOSTIC MAMMOGRAM BILATERAL W ELIZA [...] 5 mm in thickness. us Bertha Ortega AIR SUPPORT CONTROL OFFICER IMG MAMMO PROCEDURES Ce l Result * Imaging Pap and HPV mRNA E6/E7 (05/03/2018 10:56 AM CDT) Report status CANCELED [facility] [place] Comment:Result canceled by t he ancillary CLINICAL INFORMATION: [facility] [place] [...] [place] Comment:Result canceled by t olayinka ancillary HPV interp [facility] [place] Comment:Negative for intraep ithelial lesion or malignancy. Infection: CANCELED [facility] [place] Comment:Result canceled by t he ancillary COMMENTS [facility] - Comment: This Pap test has been evaluated with computer assisted technology. Merchandising Intern [facility] - Comment: AMW, CT(ASCP) CT screening location: [place] [address] [place] [address] Review motorcycle deliverer CANCELED [facility] [place] Comment:Result canceled by t olayinka ancillary Pathologist [facility]CELED [facility] [place] Comment:Result canceled by t olayinka ancillary Comment [facility] [place] Comment: EXPLANATORY NOTE: The [...] High Risk E6/E7 Not Detected Not Detected [facility] [place] Comment: This test was performed using the APTIMA HPV Assay ([employer] This assay detects E6/E7 viral messenger RNA (mRNA) from 14 high-risk HPV types (16,18,31,33,35,39,45,51,52,56,58,59,66,68). The analytical performance characteristics of this assay have been determined by [facility]. The modifications have not been cleared or approved by the FDA. This assay has been validated pursuant to the CLIA regulations and is used for clinical purposes. Endocervical/vag inal 05/03/2018 10:56 AM CDT 05/04/2018 6:19 AM CDT Narrative Resulting Agency Comment Performing Organization Information: Site ID: [place] [facility] Address: [address] [place] [address] Director: Jamie Morales D.O., MPH Site ID: [place] [facility] Address: [address] [place] [address] Director: Arnold Diaz us Abdirahman Kirkpatrick MD LAB PATHOLOGY ORDERABLES F inal Result [facility] [place] ARAMIS Ta [facility] [place] from Last 3 Months or Most Recently Relevant to Health Maintenance Insurance [employer] [facility] CHOICE PLUS Advance Directives For more information, please contact: [phone] Documents on File Type Date Recorded Patient Processor Solid Propellant Expl anation ADVANCE DIRECTIVE 04/01/2023 11:13 AM POWER OF SPRING FLOOR SERVICE WORKER-MEDICAL ADVANCE DIRECTIVE 03/15/2023 11:28 AM RUPAL R OF SPRING FLOOR SERVICE WORKER-MEDICAL * Full Code (Latest Code Status on [...] 1:56 PM 10/27/2018 6:42 PM Care Teams Paper Cone Grader Relationship Specialty Start Date End Date John Lomax MD PCP - General 08/20/16 Atilio Carl MD Referring Physician Cardiology 09/02/18 Eunice Soto MD Surgeon Cardiothoracic Surgery 03/29/23 Sae Hawkins MD PhD Consulting Physician Cardiology 03/29/23
--- OUTSIDE RECORDS SUMMARY | 2025-05-26 11:48 | XMS_ITS | Encounter Summary ---
Author Organization [facility] Address [address] [place] [address] Phone Care Team Providers Care Associate Material Handler Name Role Phone Bertha Pérez APRN, GLASSWARE MAKER Unavailable + [phone] John Lomax MD Primary Care Provider + [phone] Sherwin Cuba MD Unavailable Reason for Referral * Radiology Services (Routine) - Authorized Specialty Diagnoses / Procedures Referred By Contac t Referred To Contact Radiology Diagnoses Abnormal mammogram Procedures CHYNA DIAG RIGHT UNILATERAL DIGITAL W CAD W Sherwin Silver MD [address] [address] Phone: tel: fax: Referral ID Status Reason Start Date Expiration Date V isits Requested Visits Authorized [id number] Authorized 11/28/2024 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 Details Date Type Department Care Team (Late st Contact Info) Description 11/27/2024 Transcribe Orders [facility] [address] [place] [address] Sherwin Cuba MD [address] [address] Abnormal mammogram (Primary Dx); Abscess of right breast Social History Tobacco Use Types Packs/Day Years Used Date Smoking Tobacco: Every Day Cigarettes 1 21.6 Started: 2003 Smokeless Tobacco: Never Alcohol Use [...] Description 07/09/2025 11:00 AM CDT Office Visit [facility] - [facility] - [place] [address] [place] [address] John Lomax MD [address] [place] [address] Scheduled Orders Name Type Priority Associated Diagnoses Orde r Schedule CHYNA DIAG RIGHT UNILATERAL DIGITAL W CAD W ELIZA Imaging Routine Abnormal mammogram Expected: 02/20/2025, Expires: 08/22/2025 documented as of this encounter Visit Diagnoses Diagnosis Abnormal mammogram- Primary Abnormal mammogram, unspecified Abscess of right breast Inflammatory disease of breast documented in this encounter Additional Health Concerns Assessment Noted Time PHQ-9 Depression Total Score: 0 11/05/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
--- OUTSIDE RECORDS SUMMARY | 2025-05-26 11:48 | XMS_ITS | Clinical Summary ---
Author Organization [facility] [place] [address] Care Team Providers Care Equity Director Name Role Phone John Lomax MD Primary Care Provider [phone] Allergies Active Allergy Reactions Criticality Noted Date Comments Cephalexin Nausea and Vomiting 02/20/2025 Levofloxacin Itching,Chest pressure 06/24/2024 Penicillins Unknown 06/24/2024 Had a reaction as a child Medications metoprolol tartrate (LOPRESSOR) 50 MG tablet Take 1 tablet (50 mg total) by mouth 2 (two) times daily. Active cetirizine (ZYRTEC) 10 MG tablet Take 1 tablet (10 mg total) by mouth daily. Active multi vitamin/mineral s (THERA-M ENHANCED) tablet Take 1 tablet by mouth daily. Active aspirin EC 81 MG tablet Take 1 tablet (81 mg total) by mouth daily. Active atorvastatin (LIPITOR) 40 MG tablet Take 1 tablet (40 mg total) by mouth nightly at bedtime. 30 tablet 03/06/2025 Active furosemide (LASIX) 20 MG tablet Take 2 tablets (40 mg total) by mouth daily. 60 tablet 1 03/06/2025 Active potassium chloride CR (KLOR-CON M) 20 MEQ tablet Take 1 tablet (20 mEq total) by mouth daily. 60 tablet 1 03/06/2025 Active Active Problems Problem Noted Date Diagnosed Date Syncope 03/04/2025 Chest pain 03/02/2025 Encounters Date Type Department Care Team Description 04/27/2025 1:36 AM CDT - 04/27/2025 2:24 AM CDT Emergency [facility] [place] [address] Ailyn Reinoso PA Foot Pain (left) Discharge Disposition: Home or Self Care (Routine Discharge) 04/27/2025 Travel 03/07/2025 Telephone [facility] car[facility], [address] [place] [address] Judy Molina MD Schedule Test 03/04/2025 6:13 PM CDT - 03/06/2025 4:19 PM CDT Hospital Encounter [facility] [place] [address] Al Cummings MD Elayyan, Ibrahim B, MD Goldberg, Deborah, MD Syncope Discharge Disposition: Home or Self Care (Routine Discharge) 03/04/2025 Travel 03/01/2025 11:06 PM CDT - 03/03/2025 10:33 AM CDT Hospital Encounter [facility] [place] [address] Kateryna Maza MD Elayyan, MD Sheree Clements Maaroof, MD Chest Pain Discharge Disposition: Home or Self Care (Routine Discharge) 03/01/2025 Travel from Last 3 Months Social History Tobacco Use Types Packs/Day Years Used Date Smoking Tobacco: Every Day Cigarettes Smokeless Tobacco: Never Tobacco Cessation:Ready to Q uit: Not Asked; Counseling Given: Not Answered Alcohol Use Standard Drinks/Week Comments Yes 0 (1 standard drink = 0.6 oz pur e alcohol) 2-3 fireball/ day [facility] Utilities Answer Date Recorded In the past 12 months has e [employer], gas, oil, or water [employer] threatened to shut off services in your home? No 03/04/2025 Humiliation, Afraid, Rape, and Kick questionnair e Answer Date Recorded Within the last year, have y ou been afraid of your partner or ex-partner? No 03/04/2025 Within the last year, have y ou been humiliated or emotionally abused in other ways by your partner or ex-partner? No Within the last year, have y ou been kicked, hit, slapped, or otherwise physically hurt by your partner or ex-partner? No 03/04/2025 Within the last year, have y ou been raped or forced to have any kind of sexual activity by your partner or ex-partner? No 03/04/2025 Overall Financial Resource Strain (CARDIA) Answe r Date Recorded How hard is it for you to pa y for the very basics like food, housing, medical care, and heating? Not hard at all 03/04/2025 Hunger Vital Sign Answer Date Recorded Within the past 12 months, y ou worried that your food would run out before you got the money to buy more. Never true 03/04/20 25 Within the past 12 months, t he food you bought just didn't last and you didn't have money to get more. Never true 03/04/2025 PRAPARE - Transportation Answer Date Re corded In the past 12 months, has l ack of transportation kept you from medical appointments or from getting medications? No 02/22 In the past 12 months, has l ack of transportation kept you from meetings, work, or from getting things needed for daily living? No 03/04/2025 Housing Stability Vital Sign Answer Tavo e Recorded In the last 12 months, was t here a time when you were not able to pay the mortgage or rent on time? No 03/04/2025 In the past 12 months, how m any times have you moved where you were living? 0 03/04/2025 At any time in the past 12 m [facility], were you homeless or living in a half-way (including now)? No 03/04/2025 Comments Unknown Sex and Gender Information Value Date Recorded Sex Assigned at Female 02/20/2025 1:13 PM CDT Legal Sex Female 12:51 PM CDT Gender Identity Not on file Sexual Orientation Not on file Last Filed Vital Signs Vital Sign Reading Time Taken Comments Blood Pressure 188/129 04/27/2025 1:25 AM CDT Pulse 87 04/27/2025 1:25 AM CDT Temperature 36.6 C (97.9 F) 04/27/2025 1:25 AM CDT Respiratory Rate 20 04/27/2025 1:25 AM CDT Oxygen Saturation 99% 04/27/2025 1:25 AM CDT Inhaled Oxygen Concentration - - Weight 117.9 kg (260 lb) 04/27/2025 1:25 AM CDT Height 167.6 cm (5' 6) 04/27/2025 1:25 AM CDT Body Mass Index 41.97 04/27/2025 1:25 AM CDT Plan of Treatment Health Maintenance Due Date Last Done Comments Cervical Cancer Screening Pap Smear (Age 30 to 64) Every 3 Years 1977 Colorectal Cancer Screening Colonoscopy (10 Years) 1977 Annual Physical 1980 Hepatitis C 1995 DTaP, Tdap and Td Vaccines (1 - Tdap) 1996 Hepatitis B Vaccines (1 of 3 - 19+ 3-dose series) 1996 Cervical Cancer Screening Pap with HPV Testing (Age 30 to 64) Every 5 Years 2007 Cervical Cancer Screening with HPV 2007 Pneumococcal Vaccine: Pediatrics (0 to 5 Years) and At-Risk Patients (6 to 49 Years) (2 of 2 - PPSV23) 04/14/2019 02/17/2019 COVID-19 Vaccine ( - season) 2024 Mammogram Screening 08/01/2026 08/01/2024, 07/14/2021, 08/03/2017, Additional history exists Meningococcal B Vaccine Aged Out No l onger eligible based on patient's age to complete this topic Meningococcal Vaccine Aged Out No acosta mahi eligible based on patient's age to complete this topic RSV Immunizations Under 20 Months Aged Out No longer eligible based on patient's age to complete this topic Goals Goal Patient Goal Type Associated Problems Recent Progress Patient-Stated? 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 Procedure Name Priority Date/Time Associated Diagnosis Comments XR FOOT LT 3V STAT 04/27/2025 1:51 AM CDT NM EXER NUC STRESS TEST 1 DAY W TRACING Routine 03/06/2025 1:55 PM CDT CARDIOLOGY STRESS TEST ONLY, EXERCISE Routine 03/06/2025 10:24 AM CDT PRO-BRAIN NATRIURETIC PEPTIDE Routine 03/06/2025 5:57 AM CDT COMPREHENSIVE METABOLIC PANEL Routine 03/06/2025 5:57 AM CDT CBC W/DIFF AUTOMATED Routine 03/06/2025 5:57 AM CDT TROPONIN, QUANT Routine 03/05/2025 6:00 AM CDT BASIC METABOLIC PANEL Routine 03/05/2025 6:00 AM CDT MAGNESIUM Routine 03/05/2025 6:00 AM CDT PROTHROMBIN TIME, VENOUS Routine 03/05/2025 6:00 AM CDT CBC W/DIFF AUTOMATED Routine 03/05/2025 6:00 AM CDT ECG 12-LEAD Routine 03/04/2025 11:03 PM CDT CTA CHEST STAT 03/04/2025 8:56 PM CDT POCT URINE (BACK OFFICE) STAT 03/04/2025 8:35 PM CDT MAGNESIUM STAT 03/04/2025 8:29 PM CDT XR CHEST PORTABLE STAT 03/04/2025 7:3 3 PM CDT D-DIMER, QUANTITATIVE STAT 03/04/2025 6:39 PM CDT TROPONIN, QUANT STAT 03/04/2025 6:39 PM CDT COMPREHENSIVE METABOLIC PANEL STAT 03/04/2025 6:39 PM CDT CBC W/DIFF AUTOMATED STAT 03/04/2025 6:39 PM CDT ECG 12-LEAD STAT 03/04/2025 6:32 PM CDT PHOSPHORUS, INORGANIC PHOSPHATE Routine 03/03/2025 5:00 AM CDT COMPREHENSIVE METABOLIC PANEL Routine 03/03/2025 5:00 AM CDT CBC W/DIFF AUTOMATED Routine 03/03/2025 5:00 AM CDT MAGNESIUM Routine 03/03/2025 5:00 AM CDT LIPID PANEL Routine 03/03/2025 5:00 AM CDT HEMOGLOBIN, GLYCOSYLATED Routine 03/03/2025 5:00 AM CDT CTA CHEST FOR DISSECTION Today 03/02/2025 5:43 PM CDT USE ECHOCARDIOGRAM W CON Today 03/02/2025 12:04 PM CDT SED RATE, ERYTHROCYTE (ESR) Routine 03/02/2025 7:25 AM CDT D-DIMER, QUANTITATIVE Routine 03/02/2025 7:25 AM CDT COMPREHENSIVE METABOLIC PANEL STAT 03/02/2025 7:25 AM CDT CBC W/DIFF AUTOMATED STAT 03/02/2025 7:[address] HEAD WO CON STAT 03/02/2025 3:21 AM CDT ECG 12-LEAD STAT 03/02/2025 3:08 AM CDT URIC ACID BLOOD Routine 03/02/2025 3:00 AM CDT C-REACTIVE PROTEIN Routine 03/02/2025 3: 00 AM CDT TROPONIN, QUANT STAT 03/02/2025 3:00 AM CDT TSH W/REFLEX Routine 03/02/2025 1:13 AM CDT PHOSPHORUS, INORGANIC PHOSPHATE Routine 03/02/2025 1:13 AM CDT MAGNESIUM Routine 03/02/2025 1:13 AM CDT TROPONIN, QUANT STAT 03/02/2025 1:13 AM CDT ECG 12-LEAD STAT 03/02/2025 1:08 AM CDT XR CHEST PORTABLE STAT 03/02/2025 12: 23 AM CDT ECG 12-LEAD Routine 03/01/2025 11:38 PM CDT PRO-BRAIN NATRIURETIC PEPTIDE STAT 03/01/2025 11:14 PM CDT TROPONIN, QUANT STAT 03/01/2025 11:14 PM CDT COMPREHENSIVE METABOLIC PANEL STAT 03/01/2025 11:14 PM CDT CBC W/DIFF AUTOMATED STAT 03/01/2025 11:14 PM CDT ECG 12-LEAD STAT 03/01/2025 11:12 PM CDT from Last 3 Months Results * XR FOOT LT 3V (04/27/2025 1:51 AM CDT) Anatomical Region Laterality Modality Foot Radiographic Monse ging 04/27/2025 1:51 AM CDT Impressions 04/27/2025 1:54 AM CDT IMPRESSION: No acute osseous abnormality identified. Referred By: Interpreted By: Pepito Talavera MD, 04/27/2025 1:51 AM Narrative 04/27/2025 1:54 AM CDT [facility] [address] [place], [place] [address] Examination: XR FOOT LT 3V Exam time: 04/27/2025 1:39 AM Clinical history: Foot pain after injury. Comparison: No comparison. Technique: 3 views of the left foot. Findings: No fracture or dislocation is seen. Joint spaces appear preserved. No destructive bone process identified. Insertional calcaneal enthesophytes noted. Procedure Note Pepito Talavera MD - 04/27/[address] [address] Examination: XR FOOT LT 3V Exam time: 04/27/2025 1:39 AM Clinical history: Foot pain after injury. Comparison: No comparison. Technique: 3 views of the left foot. Findings: No fracture or dislocation is seen. Joint spaces appear preserved. Nodestructive bone process identified. Insertional calcaneal enthesophytesnoted. IMPRESSION: No acute osseous abnormality identified. Referred By: Interpreted By: Pepito Talavera MD, 04/27/2025 1:51 AM [facility] Final Result * NM EXER NUC STRESS TEST 1 DAY W TRACING (03/06/2025 1:55 PM CDT) Anatomical Region Laterality Modality Cardiac Nuclear Medicine 03/06/2025 11:5 9 AM CDT Narrative 03/06/2025 3:30 PM CDT Myocardial Perfusion Imaging Pat.Name: MCKENZIE RAMOS Yessenia.ID: [id number] .Date: 03/06/2025 Refer.MD: Monie Exam Time: 11:59:00 AM Study Type:KIERSTEN NC HT MUSCLE IMAGE SPECT MULTI Height: 66 in Weight: 277 lb BSA: 2.3 m2 Age: 11 1975,49Y Sex: F Sonogrphr: Cisco Duarte. Stat.:Outpatient Reason for Study:Chest pain, Shortness of breath, Dizziness, Syncope, Abdominal/Thoracic Aortic Aneurysm History / Clinical:Right leg swelling. Elevated d-dimer. PMH, aortic valve replacement, HTN. Atrial fibrillation, Dyslipidemia, Hypertension, Smoker Procedures: Nuclear Stress Test with Lexiscan Race: W Surgery: Cardiac Catheterization, Echocardiogram, Aortic Valve Repair, CTA ++++++++++++++++++++++++++++++++++++ SUMMARY: ++++++++++++++++++++++++++++++++++++ Stress conclusion: 1. Clinically negative. 2. Electrocardiographically negative stress test for ischemia. 3. Scintigraphic images to follow. Perfusion conclusion: 1. Good study quality. No motion correction was applied to images. No attenuation is noted. Prone imaging was performed. 2. Normal myocardial perfusion SPECT imaging. 3. Normal wall motion with an ejection fraction of 72%. 4. Stress test with myocardial perfusion imaging shows overall low risk for a cardiac event. ++++++++++++++++++++++++++++++++++++ FINDINGS: ++++++++++++++++++++++++++++++++++++ Protocol: Lexiscan 0.4mg was given as a rapid injection IV over a period of 10 seconds with the radiopharmaceutical injected at 20 seconds. The images were processed using the standard SPECT technique. A gated study was performed on the stress images. Impr: SPECT images demonstrate normal perfusion of normal intensity. Hrt size: The left ventricle is normal. WM: The LVEF is calculated to be 72%. Gated SPECT images reveal normal wall motion. Transient Ischemic Dilatation: The TID is 0.90. There is no evidence of Transient Ischemic Dilatation. ++++++++++++++++++++++++++++++++++++ STRESS: ++++++++++++++++++++++++++++++++++++ Baseline Vital Signs: Baseline ECG: Sinus rhythm, no ST changes HR: 72 bmp Rest BP: 131/95 Regadenoson with low level exercise Peak Dose: 0.4 mg Stress Test Results: Max HR: 131 bmp Target HR: 173 bmp % Target: 76 % Max BP: 184/106 Max RPP: [id number] O2 sat: 100 % Symptoms and Complications: Reason for Stopping Test: Protocol completed Stress Induced Symptoms: Shortness of breath ECG Findings: Sinus tachycardia, Non-diagnostic ST changes <Electronic Signature> 03/06/2025 03:30 PM Judy Molina M.D. Procedure Note Judy Molina MD - 03/06/2025 Myocardial Perfusion Imaging Pat.Name: MCKENZIE RAMOS Pat.ID: [id number] St.Date: 03/06/2025 Refer.MD: Monie Exam Time: 11:59:00 AM Study Type:KIERSTEN TN HT MUSCLE IMAGE SPECT MULTI Height: 66 in Weight: 277 lb BSA: 2.3 m2 Age: 11 1975,49Y Sex: F Sonogrphr: Cisco Duarte Pat. Stat.:Outpatient Reason for Study:Chest pain, Shortness of breath, Dizziness, Syncope, Abdominal/Thoracic Aortic Aneurysm History / Clinical:Right leg swelling. Elevated d-dimer. PMH, aortic valve replacement, HTN. Atrial fibrillation, Dyslipidemia, Hypertension, Smoker Procedures: Nuclear Stress Test with Lexiscan Race: W Surgery: Cardiac Catheterization, Echocardiogram, Aortic Valve Repair, CTA ++++++++++++++++++++++++++++++++++++ SUMMARY: ++++++++++++++++++++++++++++++++++++ Stress conclusion: 1. Clinically negative. 2. Electrocardiographically negative stress test for ischemia. 3. Scintigraphic images to follow. Perfusion conclusion: 1. Good study quality. No motion correction was applied to images. No attenuation is noted. Prone imaging was performed. 2. Normal myocardial perfusion SPECT imaging. 3. Normal wall motion with an ejection fraction of 72%. 4. Stress test with myocardial perfusion imaging shows overall low risk for a cardiac event. ++++++++++++++++++++++++++++++++++++ FINDINGS: ++++++++++++++++++++++++++++++++++++ Protocol: Lexiscan 0.4mg was given as a rapid injection IV over a period of 10 seconds with the radiopharmaceutical injected at 20 seconds. The images were processed using the standard SPECT technique. A gated study was performed on the stress images. Impr: SPECT images demonstrate normal perfusion of normal intensity. Hrt size: The left ventricle is normal. WM: The LVEF is calculated to be 72%. Gated SPECT images reveal normal wall motion. Transient Ischemic Dilatation: The TID is 0.90. There is no evidence of Transient Ischemic Dilatation. ++++++++++++++++++++++++++++++++++++ STRESS: ++++++++++++++++++++++++++++++++++++ Baseline Vital Signs: Baseline ECG: Sinus rhythm, no ST changes HR: 72 bmp Rest BP: 131/95 Regadenoson with low level exercise Peak Dose: 0.4 mg Stress Test Results: Max HR: 131 bmp Target HR: 173 bmp % Target: 76 % Max BP: 184/106 Max RPP: [id number] O2 sat: 100 % Symptoms and Complications: Reason for Stopping Test: Protocol completed Stress Induced Symptoms: Shortness of breath ECG Findings: Sinus tachycardia, Non-diagnostic ST changes <Electronic Signature> 03/06/2025 03:30 PM Judy Molina M.D. [facility] NUC MED Final Result * (ABNORMAL) PRO-BRAIN NATRIURETIC PEPTIDE (03/06/2025 5:57 AM CDT) Only the most recent of2 resultswithin the time period is included. PRO-B TYPE NATRIURETIC PEPTIDE 399(H) <125 PG/ML 03/06/2025 9:02 AM CDT [facility] Comment: CUT POINTS ESTABLISHED BY [employer]NATIONAL [employer] ON NT PROBNP (ICON) STUDY (2006). AGE INDEPENDENT: <300 PG/ML HAS A 99% NEGATIVE PREDICTIVE VALUE FOR EXCLUDING ACUTE CHF <50 YEARS: >450 PG/ML IS CONSISTENT WITH ACUTE CHF 50-75 YEARS: >900 PG/ML IS CONSISTENT WITH ACUTE CHF >75 YEARS: >1800 PG/ML IS CONSISTENT WITH ACUTE CHF IN PATIENTS WITH RENAL INSUFFICIENCY (GFR <60), >1200 PG/ML YIELDS A DIAGNOSTIC SENSITIVITY AND SPECIFICITY OF 89% AND 72% FOR ACUTE CHF. 03/06/2025 5:57 AM CDT [facility]ORATORY Final Result [facility] [address] [place] [address], * (ABNORMAL) COMPREHENSIVE METABOLIC PANEL (03/06/2025 5:57 AM CDT) Only the most recent of5 resultswithin the time period is included. GLUCOSE 131(H) 70 - 99 MG/DL 03/06/2025 7:09 AM CDT [facility] BUN 10 7 - 18 MG/DL 03/06/2025 7:09 AM CDT [facility] CREATININE S/P/B 0.59 0.55 - 1.02 MG/DL 03/06/2025 7:09 AM CDT [facility] SODIUM S/P/B 137 136 - 145 MMOL/L 03/06/2025 7:09 AM CDT [facility] POTASSIUM S/P/B 3.6 3.5 - 5.1 MMOL/L 03/06/2025 7:09 AM CDT [facility] CHLORIDE S/P/B 104 97 - 115 MMOL/L 03/06/2025 7:09 AM CDT [facility] CO2 27.0 21 - 32 MMOL/L 03/06/2025 7:[address] [facility] CALCIUM S/P/B 9.1 8.5 - 10.1 MG/DL 03/06/2025 7:[address] [facility] BILIRUBIN TOTAL S/P/B 0.8 0.2 - 1.2 MG/DL 03/06/2025 7:[address] [facility] Comment: THIS ASSAY IS NOT RECOMMENDED FOR PATIENTS UNDERGOING TREATMENT WITH ELTROMBOPAG DUE TO THE POTENTIAL FOR FALSELY ELEVATED RESULTS. TOTAL PROTEIN S/P/B 5.9(L) 6.4 - 8.2 G/DL 03/06/2025 7:[address] [facility] ALBUMIN S/P/B 2.6(L) 3.4 - 5.0 G/DL 03/06/2025 7:[address] [facility] AST 54(H) 15 - 37 U/L 03/06/2025 7:[address] [facility] ALT 48 14 - 55 U/L 03/06/2025 7:[address] [facility] ALKALINE PHOSPHATASE S/P/B 42(L) 50 - 136 U/L 03/06/2025 7:[address] [facility] ANION GAP 6.0 2 - 10 MMOL/L 03/06/2025 7:[address] [facility] BUN CREATININE RATIO 16.8 6 - 26 03/06/2025 7:[address] [facility] A/G RATIO 0.8(L) 1.0 - 2.0 RATIO 03/06/2025 7:[address] [facility] GFR ESTIMATE >90 >90 ML/MIN/1.7 3 M2 03/06/2025 7:[address] [facility] Comment: NOTE: eGFR is not calculated for patients <18 years of age or gender unknown. This is an estimated GFR calculation using the new CKD EPI creatinine equation without race and so does not require a correction factor for race. This estimated GFR should not be used for calculating drug doses. 03/06/2025 5:57 AM CDT Sita Argueta MD LABORATORY Final Result [facility] [address] [place] [address], [place] [phone] * (ABNORMAL) CBC W/DIFF AUTOMATED (03/06/2025 5:57 AM CDT) Only the most recent of6 resultswithin the time period is included. WBC 5.97 4.5 - 11.0 x10'3/uL 03/06/2025 6:45 AM CDT [facility] RBC 3.67(L) 4.20 - 5.40 x10'6/uL 03/06/2025 6:45 AM CDT [facility] HGB 12.6 12.0 - 16.0 G/DL 03/06/2025 6:45 AM CDT [facility] HCT 38.0 38.0 - 48.0 % 03/06/2025 6:45 AM CDT [facility] MCV 103.5(H) 81.0 - 99.0 FL 03/06/2025 6:45 AM CDT [facility] MCH 34.3(H) 27.0 - 31.0 PG 03/06/2025 6:45 AM CDT [facility] MCHC 33.2 32.0 - 36.0 G/DL 03/06/2025 6:45 AM CDT [facility] RDW 13.8 11.5 - 14.5 % 03/06/2025 6:45 AM CDT [facility] PLT 211 130 - 400 x10'3/uL 03/06/2025 6:45 AM CDT [facility] MPV 11.1 9.3 - 12.2 FL 03/06/2025 6:45 AM CDT [facility] DIFFERENTIAL TYPE AUTOMATED DIFFERENTIAL 03/06/2025 6:45 AM CDT [facility] NEUTROPHILS % 55.5 % 03/06/2025 6:45 AM CDT [facility] LYMPHOCYTES % 30.8 % 03/06/2025 6:45 AM CDT [facility] MONOCYTES % 8.5 % 03/06/2025 6:45 AM CDT [facility] EOSINOPHILS 3.9 % 03/06/2025 6:45 AM CDT [facility] BASOPHILS 1.0 % 03/06/2025 6:45 AM CDT [facility] IMMATURE GRANS % 0.3 % 03/06/20 6:45 AM CDT [facility] ABS. NEUTROPHILS 3.31 1.80 - 7.70 x10'3/uL 03/06/2025 6:45 AM CDT [facility] ABS. LYMPHOCYTES 1.84 1.00 - 4.80 x10'3/uL 03/06/2025 6:45 AM CDT [facility] ABS. MONOCYTES 0.51 0.24 - 0.86 x10'3/uL 03/06/2025 6:45 AM CDT [facility] ABS. EOSINOPHILS 0.23 0.04 - 0.36 x10'3/uL 03/06/2025 6:45 AM CDT [facility] ABS. BASOPHILS 0.06 0.01 - 0.08 x10'3/uL 03/06/2025 6:45 AM CDT [facility] ABS. IMMATURE GRANULOCYTES 0.02 0.00 - 0.49 x10'3/uL 03/06/2025 6:45 AM CDT [facility] 03/06/2025 5:57 AM CDT Sita Argueta MD LABORATORY Final Result Performing Organization Address [facility] Co de Phone Number [facility] [address] [place] [address], [place] [phone] * PROTHROMBIN TIME, VENOUS (03/05/2025 6:00 AM CDT) PROTIME 11.4 10.2 - 12.9 SEC 03/05/2025 6:58 AM CDT [facility] INR 1.0 03/05/2025 6:58 AM CDT [facility] Comment: Recommended INR Therapeutic Goals: 2.0-3.0 Routine Therapy 2.5-3.5 Mechanical Prosthetic Valves (High Risk) 03/05/2025 6:00 AM CDT Molly Xiong MD LABORATORY Final Resul t Performing Organization Address [facility] Co de Phone Number [facility] [address] [place] [address], [place] [phone] * (ABNORMAL) BASIC METABOLIC PANEL (03/05/2025 6:00 AM CDT) GLUCOSE 130(H) 70 - 99 MG/DL 03/05/2025 7:03 AM CDT [facility] BUN 7 7 - 18 MG/DL 03/05/2025 7:03 AM CDT [facility] CREATININE S/P/B 0.54(L) 0.55 - 1.02 MG/DL 03/05/2025 7:03 AM CDT [facility] SODIUM S/P/B 137 136 - 145 MMOL/L 03/05/2025 7:03 AM CDT [facility] POTASSIUM S/P/B 3.6 3.5 - 5.1 MMOL/L 03/05/2025 7:03 AM T [facility] CHLORIDE S/P/B 104 97 - 115 MMOL/L 03/05/2025 7:03 AM CDT [facility] CO2 27.8 21 - 32 MMOL/L 03/05/2025 7:03 AM T [facility] CALCIUM S/P/B 8.0(L) 8.5 - 10.1 MG/DL 03/05/2025 7:03 AM T [facility] ANION GAP 5.2 2 - 10 MMOL/L 03/05/2025 7:03 AM T [facility] BUN CREATININE RATIO 12.9 6 - 26 03/05/2025 7:03 AM T [facility] GFR ESTIMATE >90 >90 ML/MIN/1.7 3 M2 03/05/2025 7:03 AM T [facility] Comment: NOTE: eGFR is not calculated for patients <18 years of age or gender unknown. This is an estimated GFR calculation using the new CKD EPI creatinine equation without race and so does not require a correction factor for race. This estimated GFR should not be used for calculating drug doses. 03/05/2025 6:00 AM CDT us Molly Xiong MD LABORATORY Final Resul t [facility] [address] [place] [address], [place] [phone] * TROPONIN, QUANT (03/05/2025 6:00 AM CDT) Only the most recent of5 resultswithin the time period is included. TROPONIN I HIGH SENSITIVITY 8 <54 ng/L 03/05/2025 7:03 AM CDT [facility] Comment: HIGH DOSES OF BIOTIN, TROPONIN-SPECIFIC AUTOANTIBODIES, AND ANTIBODY THERAPY CONTAINING HAMA MAY INTERFERE WITH THIS TEST RESULT. CORRELATION TO CLINICAL HISTORY AND PRESENTATION RECOMMENDED. 03/05/2025 6:00 AM CDT Molly Xiong MD LABORATORY Final Resul t [facility] [address] [place] [address], [place] [phone] * MAGNESIUM (03/05/2025 6:00 AM CDT) Only the most recent of4 resultswithin the time period is included. MAGNESIUM 2.1 1.8 - 2.4 MG/DL 03/05/2025 7:03 AM CDT [facility] 03/05/2025 6:00 AM CDT Molly Xiong MD LABORATORY Final Resul t [facility] [address] [place] [address], [place] [phone] * ECG 12 lead (03/04/2025 11:03 PM CDT) Only the most recent of6 resultswithin the time period is included. 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1975 Requested By: MOLLY XIONG Order Number: [id number] Reading MD: Sahil Lawson Measurements Intervals [place] Rate: 77 P: 40 NM: 156 QRS: -38 QRSD: 108 T: 42 QT: 425 QTc: 484 Interpretive Statements SINUS RHYTHM MARKED LEFT AXIS DEVIATION [QRS AXIS < -30] MODERATE VOLTAGE CRITERIA FOR LVH, CONSIDER NORMAL VARIANT [MEETS CRITERIA IN ONE OF: R(aVL), S(V1), R(V5), R(V5/V6)+S(V1)] Procedure Note Sahil Lawson MD - 03/06/[address] [place] Test Date: 2025-03-04 Pat Name: MCKENZIE RAMOS Department: 40 Room: [id number] 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 * CTA CHEST (03/04/2025 8:56 PM CDT) Anatomical Region Laterality Modality Chest Computed Tomogra phy 03/04/2025 8:59 PM CDT Impressions 03/04/2025 9:03 PM CDT IMPRESSION: 1. No evidence of pulmonary emboli. 2. No evidence of atelectasis or infiltrative change throughout either lung. 3. Stable appearance of ascending aortic graft and aortic valve replacement changes.. Ordered By: AL CUMMINGS Interpreted By: Chris Ley MD, 03/04/2025 8:59 PM Narrative 03/04/2025 9:03 PM CDT [place] [address] Examination: CTA CHEST Exam time: 03/04/2025 8:33 PM Clinical history: Chest pain. Shortness of breath. Elevated d-dimer. Syncope. Comparison: 03/02/2025 CTA aortic dissection protocol chest study. Technique: CTA chest was obtained following bolus intravenous injection of 80 mL Isovue 370 contrast material. Coronal and sagittal multiplanar reconstruction images were obtained. Coronal MIP, maximum intensity projection images were performed. CT dose reduction techniques were utilized. Findings: There is no evidence of atelectasis or infiltrative change throughout either lung. No evidence of pulmonary nodular opacities. Pulmonary interstitium within normal limits. No evidence of pleural reactions or effusions. Median sternotomy changes. Aortic valve replacement changes. Ascending aortic graft stable in size when compared to prior exam. Pulmonary outflow tract, main pulmonary arteries, and segmental pulmonary artery branches within each lung are well visualized with no evidence of filling defects or findings suggestive of pulmonary emboli. Subsegmental pulmonary artery branches are not well opacified on the current exam. No evidence of pathologically enlarged supraclavicular, axillary, mediastinal, or hilar lymph nodes. Limited visualization of the upper abdomen is unremarkable. No evidence of destructive bone lesions. Procedure Note Chris Ley MD - 03/04/2025 [facility] [address] [place], [place] [address] Examination: CTA CHEST Exam time: 03/04/2025 8:33 PM Clinical history: Chest pain. Shortness of breath. Elevated d-dimer.Syncope. Comparison: 03/02/2025 CTA aortic dissection protocol chest study. Technique: CTA chest was obtained following bolus intravenous injection of80 mL Isovue 370 contrast material. Coronal and sagittal multiplanarreconstruction images were obtained. Coronal MIP, maximum intensityprojection images were performed. CT dose reduction techniques wereutilized. Findings: There is no evidence of atelectasis or infiltrative changethroughout either lung. No evidence of pulmonary nodular opacities.Pulmonary interstitium within normal limits. No evidence of pleural reactions or effusions. Median sternotomy changes. Aortic valve replacement changes. Ascendingaortic graft stable in size when compared to prior exam. Pulmonary outflow tract, main pulmonary arteries, and segmental pulmonaryartery branches within each lung are well visualized with no evidence offilling defects or findings suggestive of pulmonary emboli. Subsegmentalpulmonary artery branches are not well opacified on the current exam. No evidence of pathologically enlarged supraclavicular, axillary,mediastinal, or hilar lymph nodes. Limited visualization of the upper abdomen is unremarkable. No evidence of destructive bone lesions. IMPRESSION: 1. No evidence of pulmonary emboli. 2. No evidence of atelectasis or infiltrative change throughout eitherlung. 3. Stable appearance of ascending aortic graft and aortic valvereplacement changes.. Ordered By: AL CUMMINGS Interpreted By: Chris Ley MD, 03/04/2025 8:59 PM us Al Cummings MD CT Final R esult * POCT urine (03/04/2025 8:35 PM CDT) URINE HCG TEST NEGATIVE Internal Control: VALID 03/04/2025 8:35 PM CDT us Al Cummings MD POINT OF CARE TEST ORDRosario RAI Final Result * XR CHEST PORTABLE (03/04/2025 7:33 PM CDT) Only the most recent of2 resultswithin the time period is included. Anatomical Region Laterality Modality Chest Radiographic [place] 03/04/2025 7:33 PM CDT Impressions 03/04/2025 7:33 PM CDT IMPRESSION: No radiographic evidence of active chest disease. Ordered By: AL CUMMINGS Interpreted By: Chris Ley MD, 03/04/2025 7:33 PM Narrative 03/04/2025 7:33 PM CDT [place] [address] Examination: XR CHEST PORTABLE Exam time: 03/04/2025 7:24 PM Clinical history: Chest pain Comparison: 03/02/2025 portable chest Technique: AP upright view Findings: Multiple external wires and leads. Median sternotomy changes. Cardiac silhouette and pulmonary vasculature are within normal limits. Lungs appear clear. No evidence of pleural effusion. No evidence of pneumothorax. Procedure Note Chris Ley MD - 03/04/2025 [place] [address] Examination: XR CHEST PORTABLE Exam time: 03/04/2025 7:24 PM Clinical history: Chest pain Comparison: 03/02/2025 portable chest Technique: AP upright view Findings: Multiple external wires and leads. Median sternotomy changes.Cardiac silhouette and pulmonary vasculature are within normal limits.Lungs appear clear. No evidence of pleural effusion. No evidence ofpneumothorax. IMPRESSION: No radiographic evidence of active chest disease. Ordered By: AL CUMMINGS Interpreted By: Chris Ley MD, 03/04/2025 7:33 PM us Al Cummings MD GENERAL IMAGING Final R esult * (ABNORMAL) D-DIMER, QUANTITATIVE (03/04/2025 6:39 PM CDT) Only the most recent of2 resultswithin the time period is included. D-DIMER 710(HH) 0 - 500 ng{FEU}/mL 03/04/2025 7:20 PM CDT [facility] Comment: D-Dimer values less than or equal to 500 ng/mL FEU have a negative predictive value of >95% for exclusion of deep vein thrombosis and pulmonary embolism. In patients over 50 (who tend to have higher normal baseline D-Dimer values), recent studies suggest age-adjusted D-Dimer cutoff values (calculated as: age [years] x 10 ng/mL) result in equivalent outcomes and no additional false negative findings. Successful Call: DDIMR called 03/04/2025 07:21 PM to EMERGENCY ROOM ([id number]/[facility]OUSS[facility]) by [id number]. 03/04/2025 6:39 PM CDT Al Cummings MD LABORATORY Final R esult Performing Organization Address City/[facility]/ZIP Co de Phone Number [facility] [address] [place] [address], [place] [phone] * (ABNORMAL) HEMOGLOBIN, GLYCOSYLATED (03/03/2025 5:00 AM CDT) Pathologist [facility] HGB A1C 7.1(H) <5.7 % 03/03/2025 12:24 PM CDT [facility] Comment: ADA GUIDELINES 2010 5.7 TO 6.4% INCREASED RISK OF DIABETES > OR = 6.5% CONSISTENT WITH DIABETES ESTIMATED AVG GLUCOSE 157 mg/dL 03/03/2025 12:24 PM CDT [facility] 03/03/2025 5:00 AM CDT Joanna Alonzo APRN LABORATORY Final Resul t [facility] [address] [place] [address], * (ABNORMAL) LIPID PANEL (03/03/2025 5:00 AM CDT) CHOLESTEROL 195 <200 MG/DL 03/03/2025 5:48 AM CDT [facility] TRIGLYCERIDES 172(H) <150 MG/DL 03/03/2025 5:48 AM CDT [facility] HDL 38(L) >40.0 MG/DL 03/03/2025 5:48 AM CDT [facility] LDL (CALCULATED) 123(H) <100 MG/DL 03/03/2025 5:48 AM CDT [facility] NON HDL CHOLESTEROL 157(H) <130 MG/DL 03/03/2025 5:48 AM CDT [facility] CHOL/HDL RATIO 5.1(H) 0.0 - 4.5 03/03/2025 5:48 AM CDT [facility] VLDL CALCULATION 34 5 - 55 MG/DL 03/03/2025 5:48 AM CDT [facility] LIPID INTERPRETATION 03/03/2025 5:48 AM CDT [facility] Comment: NIH CONCENSUS REPORT RECOMMENDATIONS: ADULT CHILD LOW RISK: CHOLESTEROL <200 <170 TRIGLYCERIDE <150 --- HDL >=60 --- LDL <100 <110 BORDERLINE: CHOLESTEROL 200-239 170-199 TRIGLYCERIDE 150-199 --- HDL 40-59 --- LDL 100-159 110-129 HIGH RISK: CHOLESTEROL >=240 >=200 TRIGLYCERIDE >=200 --- HDL <40 --- LDL >=160 >=130 03/03/2025 5:00 AM CDT us Joanna Alonzo DRY STARCH OPERATOR LABORATORY Final Resul t [facility] [address] [place] [address], [place] [phone] * PHOSPHORUS, INORGANIC PHOSPHATE (03/03/2025 5:00 AM CDT) Only the most recent of2 resultswithin the time period is included. PHOSPHORUS 3.3 2.5 - 4.9 MG/DL 03/03/2025 5:48 AM CDT [facility] 03/03/2025 5:00 AM CDT us Mike Bentley MD LABORATORY Final Result [facility] [address] [place] [address], [place] [phone] * CTA CHEST FOR DISSECTION (03/02/2025 5:43 PM CDT) Anatomical Region Laterality Modality Chest Computed Tomogra phy 03/03/2025 7:18 AM CDT Impressions 03/03/2025 7:21 AM CDT IMPRESSION: 1. Normal postsurgical appearance of the aortic graft and aortic valve 2. Hepatic steatosis Ordered By: JUDY MOLINA Interpreted By: Tay Langley MD, 03/03/2025 7:18 AM Narrative 03/03/2025 7:21 AM CDT [facility] [address] [place], [place] [address] CT CHEST WITH CONTRAST CT ANGIOGRAM OF THE CHEST Clinical history: Aortic graft Technique: Dynamic helical images of the chest were obtained in early arterial phase after the patient received 80 mL of Isovue-370 nonionic intravenous contrast through an IV in the left antecubital fossa. A dose lowering technique was used for this procedure, which may include, but is not limited to, dose reduction technique, automated exposure control, the use of iterative reconstruction, and ALARA (As Low As Reasonably Achievable) / Image Gently techniques. 3-dimensional vessel subtraction, investigation, and analysis was performed on a separate workstation. Selected images are made available for review. Comparison: February 20, 2025 VASCULAR FINDINGS: The left ventricular outflow has a grossly stable appearance of postsurgical changes consistent with aortic valve replacement and aortic graft placement are again noted. There is normal opacification of the proximal coronary arteries. The distal anastomosis between the graft and [place] aorta has a normal overall appearance. There is no evidence to suggest dissection. The brachiocephalic, left common carotid, and left subclavian arteries are widely patent and have a normal overall appearance. The transverse aorta appears normal. The descending thoracic aorta is normal in course and caliber. NONVASCULAR FINDINGS: The overall size of the heart is within normal limits. No pericardial effusion is present. No pathologic adenopathy is noted within the mediastinum or viry. Grossly, the trachea and esophagus appear normal The lungs are clear. No areas of consolidation are seen. No pleural fluid is present. Images of the upper abdomen reveal hepatic steatosis Procedure Note Tay Langley MD - 03/03/[address] [place] [address] CHEST WITH CONTRAST CT ANGIOGRAM OF THE CHEST Clinical history: Aortic graft Technique: Dynamic helical images of the chest were obtained in earlyarterial phase after the patient received 80 mL of Isovue-370 nonionicintravenous contrast through an IV in the left antecubital fossa. A doselowering technique was used for this procedure, which may include, but isnot limited to, dose reduction technique, automated exposure control, theuse of iterative reconstruction, and ALARA (As Low As ReasonablyAchievable) / Image Gently techniques. 3-dimensional vessel subtraction, investigation, and analysis wasperformed on a separate workstation. Selected images are made availablefor review. Comparison: February 20, 2025 VASCULAR FINDINGS: The left ventricular outflow has a grossly stable appearance ofpostsurgical changes consistent with aortic valve replacement and aorticgraft placement are again noted. There is normal opacification of theproximal coronary arteries. The distal anastomosis between the graft andnative aorta has a normal overall appearance. There is no evidence tosuggest dissection. The brachiocephalic, left common carotid, and left subclavian arteries arewidely patent and have a normal overall appearance. The transverse aortaappears normal. The descending thoracic aorta is normal in course andcaliber. NONVASCULAR FINDINGS: The overall size of the heart is within normal limits. No pericardialeffusion is present. No pathologic adenopathy is noted within themediastinum or viry. Grossly, the trachea and esophagus appear normal The lungs are clear. No areas of consolidation are seen. No pleural fluidis present. Images of the upper abdomen reveal hepatic steatosis IMPRESSION: 1. Normal postsurgical appearance of the aortic graft and aortic valve 2. Hepatic steatosis Ordered By: JUDY MOLINA Interpreted By: Tay Langley MD, 03/03/2025 7:18 AM us Judy Molina MD CT Final Resul t * USE ECHOCARDIOGRAM W CON (03/02/2025 12:04 PM CDT) Anatomical Region Laterality Modality NA Echocardiogram 03/02/2025 11:0 1 AM CDT Narrative 03/02/2025 1:38 PM CDT Echocardiography Report Pat.Name: MCKENZIE RAMOS Pat.ID: [id number] St.Date: 03/02/2025 Refer.MD: JOANNA ALONZO M Exam Time: 11:01:00 AM Study Type:ECHO WITH CARDIAC DOPPLER COMP Height: 66 in Weight: 279 lb BSA: 2.3 m2 Age: 11 1975,49Y Sex: F BP: 127/89 HR: 66 bpm Sonogrphr: Fermin Rhodes RDCS Pat. Stat.:Inpatient Room: CDU-03 Reason for Study:Chest pain, SOB, hx of AVR History / Clinical:Right leg swelling. Elevated d-dimer. PMH, aortic valve replacement, HTN. Procedures: 2D, M-mode, Doppler, Color Flow, Definity was used to enhance endocardial definition. The study quality is technically difficult. Race: W ++++++++++++++++++++++++++++++++++++ SUMMARY: ++++++++++++++++++++++++++++++++++++ Left ventricle is normal in size and systolic function Estimated EF of 50-55% Diastolic dysfunction. Right ventricle is moderately enlarged and dysfunctional Mild tricuspid regurgitation Mild pulmonary hypertension. Ascending aorta is moderately dilated. ++++++++++++++++++++++++++++++++++++ FINDINGS: ++++++++++++++++++++++++++++++++++++ LV: The left ventricular size is normal. The left ventricular systolic function is lower limits of normal. Estimated left ventricular ejection fraction is 50-55%. Mild concentric left ventricular hypertrophy. Left ventricular diastolic function is abnormal (grade 1 - impaired relaxation). RV: The right ventricular size is moderately enlarged. Right ventricular systolic function is depressed. IVS: No evidence of ventricular septal defect. LA: The left atrial size is normal. The left atrial volume is normal ( less than 34 ml/M2). RA: Right atrial size is mildly enlarged. IAS: Atrial septum appears intact. AUGUSTO: No evidence of pericardial effusion. AO: Ascending aorta is moderately dilated. PA: Estimated right atrial pressure of 15 mmHg. SVn: Inferior vena cava is normal. Inferior vena cava shows <50% collapse with respiration consistent with elevated right atrial pressure. AV: No evidence of augusto-prosthetic aortic valve regurgitation. No evidence of central prosthetic aortic valve regurgitation. A prosthetic valve is in the aortic position with post-deployment peak velocity of 2.430m/sec, mean gradient of 10mmHg and a calculated SEPIDEH of 1.46cm2. MV: Structurally normal mitral valve. Trace mitral regurgitation. No evidence of mitral valve stenosis. PV: Trace pulmonic regurgitation. No evidence of pulmonic valve stenosis. Pulmonic valve not well visualized. TV: Structurally normal tricuspid valve. Mild tricuspid regurgitation. Right ventricular systolic pressure is 34 mmHg. No evidence of tricuspid valve stenosis. ++++++++++++++++++++++++++++++++++++ MEASUREMENTS: ++++++++++++++++++++++++++++++++++++ DOPPLER LVOT LVOTpkPG 4 mmHg LVOTmnPG 3 mmHg LVOTpkVel 106 cm/s (70-110)+ LVOT SV 75 ml LVOT TVI 23.9 cm Pulmonary Veins PVnpkVeld 45.2 cm/s PVnVs/Vd 0.9 PVnpkVels 39.8 cm/s PVn A Dur 116 msec AV Forward Flow AV TVI 52 cm AV pkPG 21 mmHg AV pkVel 230 cm/s (100-170)+* Area (TVI) 1.44 cm2 (3-5)* AV mnPG 11 mmHg Area (Steven) 1.45 cm2 (3-5)* MV Forward Flow MV DeTm 155 msec MV pkE 121 cm/s (60-130) MV E/A 1.8 MV pkA 68.4 cm/s PV Forward Flow PV pkVel 46.6 cm/s (60-90)+* PV AC 236 msec PV pkPG 1 mmHg TV Regurg Flow TV pkPG 19 mmHg TV pkVel 220 cm/s (30-70)* Lat E' Lat e 13.8 cm/s Lat E/E' Lat E/e 8.8 Med E' Med e 8.49 cm/s Med E/E' Med E/e 14.3 Aortic Valve Aortic Valve Ar 0.63 Aortic Valve Ve 0.46 Hepatic Vein Hepatic Vein Di 57.8 cm/s PV Antegrade Flow Acceleration Sl 166 cm/s2 Right Atrium Shepard's Disk 20 Right Ventricle Right Ventricle 7.62 cm/s 2D Left Ventricle LVIDd 4.8 cm (3.6-5.2) LV ESV 42 ml LVIDs 3.4 cm (2.3-3.9) LV ESV 45.6 ml LngAxd 8.1 cm LVESV BP 44.6 ml LngAxd 8.01 cm LV EF 60.7 % LV EDV 107 ml LV EF 53.3 % LV EDV 97.7 ml LV EF BP 56.7 % LVEDV BP 103 ml LV SV 65 ml LngAxs 6.37 cm LV SV 52.1 ml LngAxs 6.7 cm LV SV BP 58.4 ml LVPW LVPWd 1 cm Right Ventricle RVIDd 3.4 cm (2.6-4.3) Right Ventricle 38 mm Right Ventricle 43 mm Right and Left 0.708 [place] 94 mm Ventricular Septum IVSd 1 cm Aorta Ao Rtd 3.8 cm LVOT LVOT 2 cm LVOTArea 3.14 cm2 Ratios IVS RA Single Plane Right Atrium MO 10.8 mm Right Atrium Sy 63.8 ml Right Atrium Sy 67.5 mm Right Atrium Sy 27.7 ml/m2 Right Atrium Sy 22.5 cm2 MMODE Ratios LA/Ao 0.789 (0.87-1.1)* Left Atrium LAIDs 3 cm TA Tricuspid Annul 15.1 mm <Electronic Signature> 03/02/2025 01:38 PM Judy Molina M.D. Procedure Note Judy Molina MD - 03/02/2025 Echocardiography Report Pat.Name: MCKENZIE RAMOS Pat.ID: [id number] .Date: 03/02/2025 Refer.MD: JOANNA ALONZO M Exam Time: 11:01:00 AM Study Type:ECHO WITH CARDIAC DOPPLER COMP Height: 66 in Weight: 279 lb BSA: 2.3 m2 Age: 11 1975,49Y Sex: F BP: 127/89 HR: 66 bpm Sonogrphr: Fermin Rhodes RDCS Pat. Stat.:Inpatient Room: [facility]- Reason for Study:Chest pain, SOB, hx of AVR History / Clinical:Right leg swelling. Elevated d-dimer. PMH, aortic valve replacement, HTN. Procedures: 2D, M-mode, Doppler, Color Flow, Definity was used to enhance endocardial definition. The study quality is technically difficult. Race: W ++++++++++++++++++++++++++++++++++++ SUMMARY: ++++++++++++++++++++++++++++++++++++ Left ventricle is normal in size and systolic function Estimated EF of 50-55% Diastolic dysfunction. Right ventricle is moderately enlarged and dysfunctional Mild tricuspid regurgitation Mild pulmonary hypertension. Ascending aorta is moderately dilated. ++++++++++++++++++++++++++++++++++++ FINDINGS: ++++++++++++++++++++++++++++++++++++ LV: The left ventricular size is normal. The left ventricular systolic function is lower limits of normal. Estimated left ventricular ejection fraction is 50-55%. Mild concentric left ventricular hypertrophy. Left ventricular diastolic function is abnormal (grade 1 - impaired relaxation). RV: The right ventricular size is moderately enlarged. Right ventricular systolic function is depressed. IVS: No evidence of ventricular septal defect. LA: The left atrial size is normal. The left atrial volume is normal ( less than 34 ml/M2). RA: Right atrial size is mildly enlarged. IAS: Atrial septum appears intact. AUGUSTO: No evidence of pericardial effusion. AO: Ascending aorta is moderately dilated. PA: Estimated right atrial pressure of 15 mmHg. SVn: Inferior vena cava is normal. Inferior vena cava shows <50% collapse with respiration consistent with elevated right atrial pressure. AV: No evidence of augusto-prosthetic aortic valve regurgitation. No evidence of central prosthetic aortic valve regurgitation. A prosthetic valve is in the aortic position with post-deployment peak velocity of 2.430m/sec, mean gradient of 10mmHg and a calculated SEPIDEH of 1.46cm2. MV: Structurally normal mitral valve. Trace mitral regurgitation. No evidence of mitral valve stenosis. PV: Trace pulmonic regurgitation. No evidence of pulmonic valve stenosis. Pulmonic valve not well visualized. TV: Structurally normal tricuspid valve. Mild tricuspid regurgitation. Right ventricular systolic pressure is 34 mmHg. No evidence of tricuspid valve stenosis. ++++++++++++++++++++++++++++++++++++ MEASUREMENTS: ++++++++++++++++++++++++++++++++++++ DOPPLER LVOT LVOTpkPG 4 mmHg LVOTmnPG 3 mmHg LVOTpkVel 106 cm/s (70-110)+ LVOT SV 75 ml LVOT TVI 23.9 cm Pulmonary Veins PVnpkVeld 45.2 cm/s PVnVs/Vd 0.9 PVnpkVels 39.8 cm/s PVn A Dur 116 msec AV Forward Flow AV TVI 52 cm AV pkPG 21 mmHg AV pkVel 230 cm/s (100-170)+* Area (TVI) 1.44 cm2 (3-5)* AV mnPG 11 mmHg Area (Steven) 1.45 cm2 (3-5)* MV Forward Flow MV DeTm 155 msec MV pkE 121 cm/s (60-130) MV E/A 1.8 MV pkA 68.4 cm/s PV Forward Flow PV pkVel 46.6 cm/s (60-90)+* PV AC 236 msec PV pkPG 1 mmHg TV Regurg Flow TV pkPG 19 mmHg TV pkVel 220 cm/s (30-70)* Lat E' Lat e 13.8 cm/s Lat E/E' Lat E/e 8.8 Med E' Med e 8.49 cm/s Med E/E' Med E/e 14.3 Aortic Valve Aortic Valve Ar 0.63 Aortic Valve Ve 0.46 Hepatic Vein Hepatic Vein Di 57.8 cm/s PV Antegrade Flow Acceleration Sl 166 cm/s2 Right Atrium Shepard's Disk 20 Right Ventricle Right Ventricle 7.62 cm/s 2D Left Ventricle LVIDd 4.8 cm (3.6-5.2) LV ESV 42 ml LVIDs 3.4 cm (2.3-3.9) LV ESV 45.6 ml LngAxd 8.1 cm LVESV BP 44.6 ml LngAxd 8.01 cm LV EF 60.7 % LV EDV 107 ml LV EF 53.3 % LV EDV 97.7 ml LV EF BP 56.7 % LVEDV BP 103 ml LV SV 65 ml LngAxs 6.37 cm LV SV 52.1 ml LngAxs 6.7 cm LV SV BP 58.4 ml LVPW LVPWd 1 cm Right Ventricle RVIDd 3.4 cm (2.6-4.3) Right Ventricle 38 mm Right Ventricle 43 mm Right and Left 0.708 [place] 94 mm Ventricular Septum IVSd 1 cm Aorta Ao Rtd 3.8 cm LVOT LVOT 2 cm LVOTArea 3.14 cm2 Ratios IVS RA Single Plane Right Atrium MO 10.8 mm Right Atrium Sy 63.8 ml Right Atrium Sy 67.5 mm Right Atrium Sy 27.7 ml/m2 Right Atrium Sy 22.5 cm2 MMODE Ratios LA/Ao 0.789 (0.87-1.1)* Left Atrium LAIDs 3 cm TA Tricuspid Annul 15.1 mm <Electronic Signature> 03/02/2025 01:38 PM Judy Molina M.D. Joanna Alonzo DRY STARCH OPERATOR ECHO Final Resul t * SED RATE, ERYTHROCYTE (ESR) (03/02/2025 7:25 AM CDT) ESR 18 <20 MM/HR 03/02/2025 9:13 AM CDT [facility] Comment:Testing performed on [employer] iSED. 03/02/2025 7:25 AM CDT Joanna Grecia Clinton DRY STARCH OPERATOR LABORATORY Final Resul t [facility] [address] [place] [address], [place] [phone] * CT HEAD WO CON (03/02/2025 3:21 AM CDT) Anatomical Region Laterality Modality Head Computed Tomogra phy 03/02/2025 3:23 AM CDT Impressions 03/02/2025 3:26 AM CDT IMPRESSION: No acute intracranial abnormalities. Referred By: Interpreted By: Pepito Talavera MD, 03/02/2025 3:23 AM Narrative 03/02/2025 3:26 AM CDT [facility] [address] [place], [place] [address] EXAMINATION: CT HEAD WO CON CLINICAL HISTORY: TINGLING TO LEFT SIDE OF FACE/NECK; DIZZINESS COMPARISON: No comparison. TECHNIQUE: CT examination of the head without contrast was performed with axial images obtained. A radiation dose lowering technique was used for this procedure, which may include, but is not limited to, dose reduction technique, automated exposure control, the use of iterative reconstruction, ALARA (As Low As Reasonably Achievable) techniques, and Image Gently techniques. FINDINGS: There is no evidence of acute intracranial hemorrhage, abnormal extra-axial collections, intracranial mass effect, or midline shift. The ventricles and extra-axial/subarachnoid spaces are unremarkable. The tate-white matter differentiation is grossly preserved. There is no definite CT evidence to suggest acute territorial infarction. The calvarium is unremarkable. The visualized mastoid air cells, paranasal sinuses, and orbits are grossly unremarkable. Procedure Note Pepito Talavera MD - 03/02/2025 [place] [id number] EXAMINATION: CT HEAD WO CON CLINICAL HISTORY: TINGLING TO LEFT SIDE OF FACE/NECK; DIZZINESS COMPARISON: No comparison. TECHNIQUE: CT examination of the head without contrast was performed withaxial images obtained. A radiation dose lowering technique was used forthis procedure, which may include, but is not limited to, dose reductiontechnique, automated exposure control, the use of iterativereconstruction, ALARA (As Low As Reasonably Achievable) techniques, andImage Gently techniques. FINDINGS: There is no evidence of acute intracranial hemorrhage, abnormalextra-axial collections, intracranial mass effect, or midline shift. Theventricles and extra-axial/subarachnoid spaces are unremarkable. Thegray-white matter differentiation is grossly preserved. There is nodefinite CT evidence to suggest acute territorial infarction. Thecalvarium is unremarkable. The visualized mastoid air cells, paranasalsinuses, and orbits are grossly unremarkable. IMPRESSION: No acute intracranial abnormalities. Referred By: Interpreted By: Pepito Talavera MD, 03/02/2025 3:23 AM Joanna Alnozo DRY STARCH OPERATOR CT Final Resul t * (ABNORMAL) C-REACTIVE PROTEIN (03/02/2025 3:00 AM CDT) C-REACTIVE PROTEIN 0.45(H) <0.29 mg/dL 03/02/2025 4:00 AM CDT [facility] 03/02/2025 3:00 AM CDT us Joanna Alonzo DRY STARCH OPERATOR LABORATORY Final Resul t Performing Organization Address City/[facility] Co de Phone Number [facility] [address] [place] [address], [place] [phone] * (ABNORMAL) URIC ACID BLOOD (03/02/2025 3:00 AM CDT) URIC ACID 6.9(H) 2.6 - 6.0 MG/DL 03/02/2025 4:00 AM CDT [facility] 03/02/2025 3:00 AM CDT us Joanna Alonzo DRY STARCH OPERATOR LABORATORY Final Resul t Performing Organization Address [facility] Co de Phone Number [facility] [address] [place] [address], [place] [phone] * TSH W/REFLEX (03/02/2025 1:13 AM CDT) TSH 2.740 0.358 - 3.74 uIU/ML 03/02/2025 3:02 AM CDT [facility] Comment: HIGH DOSES OF BIOTIN MAY INTERFERE WITH THIS TEST RESULT. CORRELATION TO CLINICAL HISTORY AND PRESENTATION RECOMMENDED. FREE T4 NOT INDICATED 03/02/2025 1:13 AM CDT us Joanna Alonzo DRY STARCH OPERATOR LABORATORY Final Resul t Performing Organization Address City/[facility]/ZIP Co de Phone Number [facility] [address] [place] [address], from Last 3 Months Advance Directives * Full Code (Latest Code Status on File) Date Activated Date Inactivated Comments 03/04/2025 10:48 PM 03/06/2025 6:19 PM * Full Code Date Activated Date Inactivated Comments 03/02/2025 2:48 AM 03/03/2025 12:38 PM Care Teams Equity Director Relationship Specialty Start Date End Date John Lomax MD [address] [place] [address] PCP - General INTERNAL MEDICINE 06/24/24
--- OUTSIDE RECORDS SUMMARY | 2025-05-26 11:48 | XMS_ITS | Clinical Summary ---
Author Organization [facility] Address [address] [place] [address] Phone Care Team Providers Care Eyeglass Maker Name Role Phone Bertha Pérez APRN, FIELD SERVICE ENGINEER Unavailable [phone] John Lomax MD Primary Care Provider [phone] Sherwin Cuba MD Unavailable [phone] Allergies Active Allergy Reactions Criticality Noted Date Comments [place] Oil Anaphylaxis High 12/12/2021 Cephalosporins Nausea,Unknown Medium 11/02/2016 Levofloxacin Itching,Palpitations ,Shortness of Breath,Other (see Comments) High 06/24/2024 Other-Food Allergen (Not Found In Search) Itching,Swelling High 11/03/2023 Raw veggies and fresh fruits / Watermelon /[place] hives on her lips and itching [...] more severe pain. 20 Tablet 4 Active citalopram (CeleXA) 20 MG TabletIndication s:Anxiety with depression Take 1 Tablet by mouth daily. 90 Tablet 5 Active metoprolol tartrate (LOPRESSOR) 50 MG TabletIndication s:Hypertension, essential TAKE 1 TABLET BY MOUTH DAILY 90 Tablet 5 Active Active Problems Problem [...] Overview: Added automatically from request for surgery [id number] Last Assessment & Plan: s/p bio AVR w/ aortoplasty with a 25mm Avalus valve 10/11/18 Was discharged on 10/21/18 Presented to her local ED with left pain under her breast Was admitted to [facility] due to murmur heard on exam and WBC -placed on abx -TTE ordered Encounters Date Type Department Care Team Description 05/11/2025 Refill [facility] [place] [address] [place] [address] John Lomax MD Medication Refill 04/13/2025 8:30 AM CDT Office Visit [facility] [place] [address] [place] [address] Jessi Desai, COASTAL AND ESTUARY SPECIALIST, FIELD SERVICE ENGINEER Annual physical exam (Adult) (Primary Dx); Type 2 diabetes mellitus without complication, without long-term current use of insulin Discharge Disposition: Discharged to home or Selfcare 04/13/2025 Travel 03/18/2025 Refill [facility] [place] [address] [place] [address] John Lomax MD Medication Refill from Last 3 Months Immunizations Immunization Administration [...] 1 21.6 Started: 2003 Smokeless Tobacco: Never Tobacco Cessation:Ready to Q uit: Not Asked; Counseling Given: Not Answered Alcohol Use Standard Drinks/Week Comments Yes 0 (1 standard drink = 0.6 oz pur e alcohol) 1-[address] [facility] Utilities Answer Date Recorded In the past 12 months has e electric, gas, oil, or water company threatened to shut off services in your home? No 12/28/2024 Social Connection and Isolation Panel Answer Date Recorded In a typical week, how many times do you talk on the phone with family, friends, or neighbors? More than three times a week 12/28/2024 How often do you get togethe r with friends or relatives? More than three times a week 12/28/2024 How often do you attend chur ch or anabaptist services? Never 12/28/2024 Do you belong to any clubs o r organizations such as muslim groups, unions, fraternal or athletic groups, or [...] Total Score - Questions 1-9 4 03/2025 [facility] - Occupational [...] any time in the past 12 m [facility], were you homeless or living in a alf (including now)? No 12/28/2024 Sexually Active Control Partners Comments Not Currently Male Comments No Sex and Gender Information Value Date Recorded Sex Assigned at Not on file Legal Sex Female 12:16 AM CDT Gender Identity Not on file Sexual Orientation Not on file Last Filed Vital Signs Vital Sign Reading Time Taken Comments Blood Pressure 128/74 04/13/2025 8:24 AM CDT Pulse 74 04/13/2025 8:24 AM CDT Temperature 36.3 C (97.3 F) 04/13/2025 8:24 AM CDT Respiratory Rate 22 12/28/2024 3:41 PM BACKUP [place] Oxygen Saturation 96% 04/13/2025 8:24 AM CDT Inhaled Oxygen Concentration - - Weight 118.5 kg (261 lb 4.8 oz) 04/13/2025 8:24 AM CDT Height 167.6 cm (5' 6) 04/13/2025 8:24 AM CDT Body Mass Index 42.17 04/13/2025 8:24 AM CDT Plan of Treatment Upcoming Encounters Date Type Department Care Team (Late st Contact Info) Description 07/09/2025 11:00 AM CDT Office Visit [facility] [place] [address] [place] [id number] John Lomax MD [address] [place], [place] [id number] Health Maintenance Due Date Last Done Comments Diabetes: Eye Exam 1977 Hepatitis C Virus (HCV) Screening 1977 TdaP Immunization 1977 Hepatitis B Immunization (1 of 3 - 19+ 3-dose series) 1996 Pap Smear 1998 Cervical Cancer Screening (CCS) 2007 HPV/Cotest 2007 Pneumococcal Immunization Combined (2 of 2 - PPSV23) 04/14/2019 02/17/2019 Cologuard 2022 Colonoscopy 2022 Colorectal Cancer Screening 2022 Immunochemical Fecal Occult Blood 2022 SARS-COV-2 Immunization ( season) 2024 Influenza Immunization (#1) 2025 Diabetes: Nephropathy Screening 07/10/2025 07/10/2024, 10/14/2023, 08/05/2023, Additional history exists Mammogram 08/01/2025 08/01/2024, 06/26, 07/14/2021, Additional history exists Diabetes: Hemoglobin A1c 09/03/20252 025, 03/05/2023, 02/11/2023, Additional history exists Diabetes: Foot Exam 04/13/2026 04/13/2025, 04/13/2025, 04/13/2025 Respiratory Syncytial Virus (RSV) Immunization (Adult) (1 - 1-dose 75+ series) 2052 Discussion re Starting/Frequency of Mammograms Completed 08/01/2024, 07/14/2021, 07/14/2021, Additional history exists Human Papillomavirus (HPV) Immunization Aged Out No longer eligible based on patient's age to complete this topic Meningococcal Immunization (ACWY) Aged Out No longer eligible based on patient's age to complete this topic Rotavirus Immunization Aged Out No lo nger eligible based on patient's age to complete this topic Procedures Procedure Name Priority Date/Time Associated Diagnosis Comments CHYNA DIAG BILATERAL DIGITAL W CAD W ELIZA Routine 08/01/2024 2:37 PM CDT Abscess of right breast CMP (COMPREHENSIVE METABOLIC PANEL) STAT 07/10/2024 12:15 PM CDT HEMOGLOBIN A1C W/ ESTIMATED GLUCOSE Routine 02/17/2019 10:47 AM CDT Type 2 diabetes mellitus without complication, with long-term current use of insulin (HCC) from Last 3 Months or Most Recently Relevant to Health Maintenance Results * CHYNA DIAG BILATERAL DIGITAL W CAD [...] exams dated: 07/24/2021, 07/14/2021, 07/14/2021, and 08/03/2017 [facility]. BREAST TISSUE:There are scattered areas of [...] signed by: Blas Barahona M.D. ll/:08/01/2024 15:26:52 Lime Slaker(s): RT Lety(R)(M), [facility]; Marcelle Pizarro, [facility] letter sent: Birad 3 Followup Reading location: [facility]: Category 3: Probably Benign [...] exams dated: 07/24/2021, 07/14/2021, 07/14/2021, and 08/03/2017 [facility]. BREAST TISSUE:There are scattered areas of [...] signed by: Blas Barahona M.D. ll/:08/01/2024 15:26:52 Lime Slaker(s): Ira Tavares, RT(R)(M), [facility]; Marcelle Pizarro, [facility] letter sent: Birad 3 Followup Reading location: [facility]: Category 3: Probably Benign Sherwin Cuba MD IMG MAMMO ORDERABLES Final Result * (ABNORMAL) CMP (Comprehensive Metabolic Panel) (07/10/2024 12:15 PM CDT) SODIUM 138 136 - 145 mmol/L 07/10/2024 12:52 PM CDT [facility] POTASSIUM 3.2(L) 3.5 - 5.1 mmol/L 07/10/2024 12:52 PM CDT [facility] CHLORIDE 104 98 - 107 mmol/L 07/10/2024 12:52 PM CDT [facility] CO2, VENOUS 22 22 - 30 mmol/L 07/10/2024 12:52 PM CDT [facility] ANION GAP 15.2 <18.0 mmol/L 07/10/2024 12:52 PM CDT [facility] GLUCOSE 187(H) 70 - 99 mg/dL 07/10/2024 12:52 PM CDT [facility] BUN 8 5 - 18 mg/dL 07/10/2024 12:52 PM CDT [facility] CREATININE, BLOOD 0.73 0.60 - 1.00 mg/dL 07/10/2024 12:52 PM CDT [facility] BUN/CREATININE RATIO 11(L) 12 - 20 ratio 07/10/2024 12:52 PM CDT [facility] TOTAL PROTEIN 6.6 6.3 - 8.2 g/dL 07/10/2024 12:52 PM CDT [facility] ALBUMIN 3.3(L) 3.5 - 5.0 g/dL 07/10/2024 12:52 PM CDT [facility] A/G RATIO 1.0 1.0 - 2.2 07/10/2024 12:52 PM CDT [facility] CALCIUM 8.3(L) 8.7 - 10.5 mg/dL 07/10/2024 12:52 PM CDT [facility] T BILI 0.6 0.2 - 1.2 mg/dL 07/10/2024 12:52 PM CDT [facility] SGOT (AST) 45(H) 5 - 34 U/L 07/10/2024 12:52 PM CDT [facility] SGPT (ALT) 37 0 - 55 U/L 07/10/2024 12:52 PM CDT [facility] ALKALINE PHOSPHATASE 84 40 - 150 U/L 07/10/2024 12:52 PM CDT [facility] GFR, ESTIMATED >60 >=60 07/10/2024 12:52 PM CDT [facility] Comment: Creatinine Clearance is the preferred criteria for selecting drug dose adjustments in renally impaired patients. The GFR is provided as additional pertinent clinical information. GFR is reported in mL/min/1.73 sq m. Calculation based on the Chronic Kidney Disease Epidemiology Collaboration (CKD- EPI) equation refit without adjustment for race. GFR, EST. >60 >=60 024 12:52 PM CDT [facility] GFR, EST. NONAFRICAN >60 >=60 07/10/2024 12:52 PM CDT [facility] Blood Venipuncture / Unknown 07/10/2024 12:15 PM CDT 07/10/2024 12:30 PM CDT Nicolasa Bonilla APRN, FIELD SERVICE ENGINEER CHEMISTRY ORDERABLES Final Result [facility] [address] [place] [address] * (ABNORMAL) HEMOGLOBIN A1C W/ ESTIMATED GLUCOSE (02/17/2019 10:47 AM CDT) HGB-A1C 8.3(H) 4.0 - 6.0 % 02/17/2019 2:18 PM CDT [facility] Est Average Glucose 191.5 mg/dL 02/17/2019 2:18 PM CDT [facility] Blood specimen (specimen) Venipuncture / Unknown 02/17/2019 10:47 AM CDT 02/17/2019 10:47 AM CDT Narrative [facility] - 02/17/2019 2:18 PM CDT HEMOGLOBIN A1C: DIABETIC PATIENTS: WELL-CONTROLLED: 6.2 - 7.0 INTERMEDIATE WELL-CONTROLLED: 7.0 - 9.0 POORLY-CONTROLLED: >9.0 us John Lomax MD CHEMISTRY ORDERABLES Ce l Result Performing Organization Address City/[facility]/ZIP Co de Phone Number [facility] [address] [place] [address] from Last 3 Months or Most Recently Relevant to Health Maintenance Care Teams Eyeglass Maker Relationship Specialty Start Date End Date John Lomax MD [address] [place] [address] PCP - General Internal Medicine 11/05/23 Bertha Pérez, COASTAL AND ESTUARY SPECIALIST, FIELD SERVICE ENGINEER [address] [place] [address] [address] Nurse Practitioner Gynecology 11/05/23 Sherwin Cuba MD [address] [address] Consulting Physician General Surgery 07/25/24
--- OUTSIDE RECORDS SUMMARY | 2025-05-26 11:48 | XMS_ITS | Referral Summary ---
Author Organization [facility] Medical Office Building [address] Address [address] [place] [address] Care Team Providers Care Pan Devulcanizer Name Role Phone John Lomax MD Primary Care Provider + Atilio Carl MD Unavailable [phone] Eunice Soto MD Unavailable Sae Hawkins MD PhD Unavailable + Encounters Date Type Department Care Team Description 03/07/2025 Documentation [facility] Cardiology [address] [place] [address] Altagracia Kelly NP from Last 3 Months Allergies Active Allergy Reactions Criticality Noted Date Comments Allen Oil Anaphylaxis High Cephalosporins Nausea & Vomiting [...] surgery Assessment & Plan (10/20/2018 10:03 AM ADMINISTRATOR): Wean Oxycodone prior to discharge Teach splinting Added gabapentin yesterday Assessment & Plan (10/12/2018 7:06 PM ADMINISTRATOR): Remaining drowsy post-op with respiratory acidosis. -Lido patches -Schedule Tylenol -Oxy PRN -Dilaudid PRN Increase OXY to 10mg PRN Assessment & Plan (10/12/2018 5:15 AM ADMINISTRATOR): Remaining drowsy post-op with respiratory acidosis. -Lido patches -Schedule Tylenol -Will try to avoid narcs at this time Additional Care: Better mentation overnight, given 1 dose Oxy and 1 dose of Dilaudid, tolerating well. Continues to endorsing pain. Will increase frequency as tolerated. Improving ABG Assessment & Plan (10/11/2018 6:55 PM ADMINISTRATOR): Expected post-op. Given Fent 200mcg on arrival [...] with accu cks QID BS well controlled ict educator met with pt and provided education/supplies for TID testing at discharge Assessment & Plan (03/27/2023 10:17 AM CDT): Pt denies dx HgbA1c 6.4 (137) Currently on SSI with accu cks QID BS well controlled ict educator met with pt and provided education/supplies for TID testing at discharge Assessment & Plan (03/26/2023 1:03 PM CDT): Pt denies dx HgbA1c 6.4 (137) Currently on SSI with accu cks QID BS well controlled ict educator met with pt and provided education/supplies for TID testing at discharge Assessment & Plan (03/23/2023 2:11 PM CDT): Pt denies dx HgbA1c 6.4 (137) Currently on SSI with accu cks QID BS well controlled ict educator met with pt and provided education/supplies [...] insulin. Assessment & Plan (10/26/2018 12:35 PM ADMINISTRATOR): Continue lantus and sliding scale Assessment & Plan (10/20/2018 1:21 PM ADMINISTRATOR): Over the past 24 hours, her blood [...] today, please call Ryann Owens NP, at [phone]. If it is after hours, please call the Diabetes Fellow at [phone]. Assessment & Plan (10/19/2018 3:10 PM ADMINISTRATOR): Over the past 24 hours, her blood glucose readings have been uncontrolled with range of 146-244 mg/dl. She does report some dietary indiscretion yesterday with it being [place]. Target inpatient glycemic goal is 100/180 mg/dl. [...] today, please call the Diabetes Fellow at [phone]. Assessment & Plan (10/14/2018 4:58 PM ADMINISTRATOR): Over the previous 24 hours, blood glucose [...] today, please call Yoanna Louise NP at [phone]. If after hours, please contact the Diabetes Fellow at [phone].. Assessment & Plan (10/13/2018 4:06 PM ADMINISTRATOR): Over the previous 24 hours, blood glucose [...] today, please call Yoanna Louise NP at [phone]. If after hours, please contact the Diabetes Fellow at [phone].. Assessment & Plan (10/12/2018 7:12 PM ADMINISTRATOR): Pt has increased insulin requirement likely due [...] call SATINDER / Inocencia Byrne M.D. At [phone] for any questions. If after 5 PM or weekends, please contact the Diabetes Fellow at [phone], option #1 Tentative Discharge Plan: We will consider DC home on orals vs GLP1 agonist like Victoza with adding metformin afterward if GLP1 is well controlled. Follow up: She wants to follow up with our Endocrinology clinic. Will request an appointment prior to discharge. Recommendations for diabetes management were discussed with the primary team. Assessment & Plan (10/12/2018 7:05 PM ADMINISTRATOR): Arrived with insulin gtt at 24u/hr. Pt diagnosed with DMII this admission. HgbA1C ~9. Endo consulted. Remains on insulin gtt @ 5u/hr this am. -f/u with Endo for insulin regimen to transition off gtt Endo recs: -NPH 20u q 8 (stop insulin gtt two hours after NPH administration) -SSI -post prandial if eats >50% of meal Assessment & Plan (10/10/2018 2:59 PM ADMINISTRATOR): Over the previous 24 hours, blood glucose [...] today, please call Yoanna Louise NP at [phone]. If after hours, please contact the Diabetes Fellow at [phone]. Assessment & Plan (10/07/2018 2:42 PM ADMINISTRATOR): Over the previous 24 hours, blood glucose [...] today, please call Yoanna Louise NP at [phone]. If after hours, please contact the Diabetes Fellow at [phone]. Assessment & Plan (10/06/2018 6:01 PM ADMINISTRATOR): Over the previous 24 hours, blood glucose [...] today, please call Yoanna Louise NP at [phone]. If after hours, please contact the Diabetes Fellow at [phone]. Assessment & Plan (10/20/2018 10:02 AM ADMINISTRATOR): New diagnosis of DM Hgb A1c on admission = 9.1 Seen by clinical systems educator- taught glucometer use and trulicity pen. F/u endocrine discharge recs Assessment & Plan (10/05/2018 7:21 PM ADMINISTRATOR): 43 yoF with HTN, obesity (BMI 54), [...] (07/13/2018): Added automatically from request for surgery [id number] Menorrhagia with regular cycle 06/30/2018 Overview (06/30/2018): Added automatically from request for surgery [id number] Rib sprain, initial encounter 12/17/2017 Current smoker [...] discharge. Assessment & Plan (10/12/2018 5:22 PM ADMINISTRATOR): H/o asthma. Smoking up to admission. -albuterol PRN Assessment & Plan (10/11/2018 6:37 PM ADMINISTRATOR): H/o asthma. Smoking up to admission. -albuterol PRN Assessment & Plan (10/05/2018 8:27 AM ADMINISTRATOR): Continue the prn albuteral. Fatigue due to excessive exertion Elevated lactic acid level Chest pain, musculoskeletal Assessment & Plan (03/08/2023 4:24 PM CDT): C/p indescribable chest pain-denies radiation of pain, N/V, SOB, diaphoresis Likely musculoskeletal Order [place] for prn use Assessment & Plan (03/07/2023 2:21 PM CDT): C/p indescribable chest pain-denies radiation of pain, N/V, SOB, diaphoresis Likely musculoskeletal Order [place] for prn use Assessment & Plan (03/06/2023 1:03 PM CDT): C/p indescribable chest pain-denies radiation of pain, N/V, SOB, diaphoresis Likely musculoskeletal Order [place] for prn use Left ventricular hypertrophy Moderate [...] 10/26/2018 Assessment & Plan (10/20/2018 10:03 AM ADMINISTRATOR): Stable on multiple cxr. Asymptomatic Atelectasis 10/11/2018 10/19/2018 Assessment & Plan (10/13/2018 12:41 PM ADMINISTRATOR): Small lung volumes on CXR- Continue O2, IS, acepella Assessment & Plan (10/12/2018 5:31 PM ADMINISTRATOR): Extubated yesterday evening, required Bipap overnight -Keep sats >92% -Aggressive pulmonary hygiene -OOBCT/ambulate -lasix 20mg for diuresis to achieve negative FB Assessment & Plan (10/12/2018 2:36 AM ADMINISTRATOR): Extubated, requiring 6L Nasal cannula. ABG with slight respiratory acidosis -BiPAP now, will plan to keep on overnight -Avoid narcs until more awake -Keep sats >92% -ABG tonight -Aggressive pulmonary hygiene Assessment & Plan (10/11/2018 7:01 PM ADMINISTRATOR): Pt arrived intubated and sedated on precedex. [...] bedside. Nasal trumpet placed. Pt extubated to LA. Plan for pt to wear nasal CPAP [...] results Assessment & Plan (10/26/2018 12:38 PM ADMINISTRATOR): Wbc 15.3 Continue broad spectrum abx UA negative No drainage from sternal wound Assessment & Plan (10/20/2018 10:03 AM ADMINISTRATOR): Remains afebrile WBC stable Assessment & Plan (10/12/2018 5:37 PM ADMINISTRATOR): WBC ~17 post-op down trending to ~12. Likely 2/2 to surgery and bypass run. No infectious concerns at this time -augusto-op antibiotics to complete today -cbc with am labs Assessment & Plan (10/11/2018 6:00 PM ADMINISTRATOR): WBC ~17 post-op. Likely 2/2 to surgery and bypass run. No infectious concerns at this time -augusto-op antibiotics -cbc with am labs Postoperative hypovolemic shock 10/11/2018 10/13/2018 Assessment & Plan (10/11/2018 7:00 PM ADMINISTRATOR): Pt arrived on NE at 0.06. Post-CPB ECHO with under-filled LV, LHV, and but normal biventricular function. Pt received 1.5L crystalloid, 750 albumin, and 475 cell saver. CVP 8-10. HR 90-100 -Albumin 500ml -NE to maintain MAP >65 but SBP <120 BMI 50.0-59.9, adult ([facility]) 10/06/2018 03/19/2023 Overview (07/06/2021): Last Assessment & [...] understanding Assessment & Plan (10/14/2018 4:54 PM ADMINISTRATOR): Complicated DM management Assessment & Plan (10/12/2018 7:13 PM ADMINISTRATOR): Complicated DM management Assessment & Plan (10/13/2018 12:41 PM ADMINISTRATOR): Fall precautions Using bariatric equipment. High risk medication use 10/05/201811/2018 Assessment & Plan (10/20/2018 1:21 PM ADMINISTRATOR): This patient is at high risk for [...] appetite. Assessment & Plan (10/19/2018 3:00 PM ADMINISTRATOR): This patient is at high risk for [...] appetite. Assessment & Plan (10/14/2018 4:54 PM ADMINISTRATOR): This patient is at high risk for [...] appetite. Assessment & Plan (10/13/2018 4:02 PM ADMINISTRATOR): This patient is at high risk for [...] appetite. Assessment & Plan (10/12/2018 7:13 PM ADMINISTRATOR): This patient is at high risk for [...] appetite. Assessment & Plan (10/10/2018 2:58 PM ADMINISTRATOR): This patient is at high risk for metabolic deterioration related to being on insulin therapy in the setting of multiple co-morbidities. Intensive monitoring is needed to allow for safe, targeted dosing of insulin. Adjustments in dosing will be made based on the blood sugar monitoring and patient variables. Assessment & Plan (10/07/2018 2:37 PM ADMINISTRATOR): This patient is at high risk for metabolic deterioration related to being on insulin therapy in the setting of multiple co-morbidities. Intensive monitoring is needed to allow for safe, targeted dosing of insulin. Adjustments in dosing will be made based on the blood sugar monitoring and patient variables. Assessment & Plan (10/06/2018 5:57 PM ADMINISTRATOR): This patient is at high risk for metabolic deterioration related to being on insulin therapy in the setting of multiple co-morbidities. Intensive monitoring is needed to allow for safe, targeted dosing of insulin. Adjustments in dosing will be made based on the blood sugar monitoring and patient variables. Assessment & Plan (10/05/2018 7:22 PM ADMINISTRATOR): This patient is at high risk for metabolic deterioration related to being on insulin therapy in the setting of multiple co-morbidities. Intensive monitoring is needed to allow for safe, targeted dosing of insulin. Adjustments in dosing will be made based on the blood sugar monitoring and patient variables. Aortic stenosis 09/29/2018 03/19/2023 Overview (09/29/2018): Added automatically from request for surgery [id number] Assessment & Plan (03/08/2023 4:24 PM CDT): [...] 160. Assessment & Plan (10/26/2018 12:38 PM ADMINISTRATOR): s/p bio AVR w/ aortoplasty with a 25mm Avalus valve 10/11/18 Was discharged on 10/21/18 Presented to her local ED with left pain under her breast Was admitted to [facility] due to murmur heard on exam and WBC -placed on abx -TTE ordered Assessment & Plan (10/20/2018 1:21 PM ADMINISTRATOR): Will require good glycemic control to facilitate healing after surgery. Assessment & Plan (10/19/2018 3:00 PM ADMINISTRATOR): Will require good glycemic control to facilitate healing after surgery. Assessment & Plan (10/14/2018 4:54 PM ADMINISTRATOR): Will require good glycemic control to facilitate healing after surgery. Assessment & Plan (10/13/2018 4:03 PM ADMINISTRATOR): Will require good glycemic control to facilitate healing after surgery. Assessment & Plan (10/12/2018 7:13 PM ADMINISTRATOR): Will require good glycemic control to facilitate healing after surgery. Assessment & Plan (10/12/2018 5:22 PM ADMINISTRATOR): S/p bio AVR and aortoplasty. Post-op care to include: - DVT ppx: SCDs to BLE and SQH - infection ppx: augusto-op antibiotics to complete today - Nutrition plan: ADAT - Bowel regimen: colace and senna - PT to evaluate and treat - Metoprolol 6.25 Assessment & Plan (10/11/2018 5:58 PM ADMINISTRATOR): S/p bio AVR and aortoplasty. Post-op care [...] treat Assessment & Plan (10/10/2018 2:58 PM ADMINISTRATOR): Will require good glycemic control to facilitate healing after surgery. Assessment & Plan (10/07/2018 2:44 PM ADMINISTRATOR): Will require good glycemic control to facilitate healing after surgery. Assessment & Plan (10/20/2018 10:01 AM ADMINISTRATOR): S/p bio AVR POD #8 Continue ASA, beta anita. Sternal drainage, betadine paint, Continue bactrim DS. Pelvic pain in female 06/30/20182017 Overview (06/30/2018): Added automatically from request for surgery [id number] Acute bronchitis 12/17/2017 10/05/2018 Bronchospasm with bronchitis, [...] week 03/11/2023 How often do you attend [facility] or [facility] services? Never 03/11/2023 Do you belong to any clubs o r organizations such as anabaptist groups, unions, fraternal or athletic groups, or [...] staff should administer the PHQ-9) 0 03/27/2023 [facility] Occupat ional [facility] - Occupational Stress Questionnaire Answer [...] place to sleep or slept in a assisted (including now)? No 03/11/2023 Personal Safety Answer Date Recorded Have you ever been in or are you currently in a harmful physical or emotional relationship or is someone making you feel afraid or unsafe? Denies 05/07/2024 Comments No Sex and Gender Information Value Date Recorded Sex Assigned at Not on file Legal Sex Female 12:14 AM ADMINISTRATOR Gender Identity Not on file Sexual Orientation [...] on file Medical Devices Implanted Type Area Lamina Searcher Device Identifier Shelf Expiration Date Model / Serial / Lot Bard Peripheral Vascular [id number] Ultraclip Bard 17ga 12cm 2 Trigger Permanent Ultrasound - [id number] - [id number] Implanted:Qty: 1 on 07/24/2021 by Pepito Batista MD at [facility] Breast Right: Breast Bard Peripheral Vascular 04/21/2024 [id number] / [id number] / Description:Implanted Right Breast Retroareolar Bard Peripheral Vascular [id number] Ultraclip Bard 17ga 10cm 2 Trigger Permanent Ultrasound - [id number] - [id number] Implanted:Qty: 1 on 07/24/2021 by Pepito Batista MD at [facility] Breast Right: Breast Bard Peripheral Vascular 04/21/2024 [id number] / [id number] / Description:Right Axillary L ymph Node Valve Aortic 25mm 400 Series Ltxfre - [id number] - [id number] Implanted:Qty: 1 on 10/11/2018 by Eunice Soto MD at [facility] Other - see comments Medtronic Inc 07/22/2019 [id number] / [id number] / Description:Aortic Valve Medtronic Card Vasc Surgery [id number] Streamline 53cm Temporary Bipolar Coaxial Myocardium Lead Pacing Latex Free - [id number] - [id number] Implanted:Qty: 1 on 10/11/2018 by Eunice Soto MD at [facility] Medtronic Card Vasc Surgery 08/17/2020 [id number] / [id number] / Description:Temporary Ventri cular pacing wire Spicer [employer] Inspiris Resilia Leaflet Aortic Valve 25mm [id number] - [id number] - [id number] Implanted:Qty: 1 on 03/09/2023 by Eunice Soto MD at [facility] N/A: Chest [employer]icer [employer] [id number] 11/15/2026 [id number] / [id number] / Wl [employer] 15x5cm Thk.6mm Patch Cardiovascular [place] [id number] - [id number] - [id number] Implanted:Qty: 1 on 03/09/2023 by Eunice Soto MD at [facility] N/A: Chest Wl [employer] [id number] 07/28/2026 [id number] / [id number] / Procedures Procedure Name Priority Date/Time Associated [...] LAB BLOOD ORDERABLE S Final Result [facility]ER ([facility]) 1 [facility] Department of [employer] [place] [address] * Hepatitis C antibody (03/09/2023 1:05 PM CDT) Pathologist [facility] Hep C Ab Nonreactive Nonreactive [facility] Comment:Antibodies to HCV no t detected. Does NOT exclude the possibility of recent exposure to HCV. Current interpretive data was last revised on 22 Blood 03/09/2023 1:05 PM CDT 03/09/2023 1:39 PM CDT Jori Negron MD LAB MICROBIOLOGY - GENERAL [place] RAI Final Result Performing Organization Address [facility] [[email or web address]] Co de Phone Number [facility] [place] [address] * (ABNORMAL) Hemoglobin A1c (03/05/2023 6:02 PM CDT) [facility] Hgb A1C 6.4(H) 4.0 - 5.6 % [facility] Estimated Average Glucose 137 mg/dL [facility] Comment: The ADA recommends reporting [...] ORDERABLES Final Resul t Performing Organization Address [facility] [[email or web address]] Co de Phone Number [facility] Department [place] [place] [address] * (ABNORMAL) Lipid panel (03/05/2023 6:02 PM CDT) [facility] Cholesterol 130 30 - 199 mg/dL [facility] Comment: Interpretive Data Ages < [...] on 2018. Triglycerides 88 <=149 mg/dL [facility] Comment: Interpretive Data Ages < or [...] on 2018. HDL 39(L) >=40 mg/dL [facility] Comment: Interpretive Data Ages < or [...] 2018. LDL, calculated 73 <=129 mg/dL [facility] Comment: Interpretive Data Ages < or [...] revised on 2018. Non-HDL Cholesterol 91 mg/dL [facility] Comment: Interpretive Data Ages < [...] last revised on 2018. Chol/HDL ratio 3 [facility] Blood 03/05/2023 6:02 PM CDT 03/05/2023 6:21 PM CDT Cheryl Watters NP LAB BLOOD ORDERABLES Final Resul t [facility] [place] [address] * (ABNORMAL) DIAGNOSTIC MAMMOGRAM BILATERAL W ELIZA [...] measuring up to 5 mm in thickness. Bertha Ortega CUP MACHINE OPERATOR IMG MAMMO PROCEDURES Ce l Result * [...] ided Pap, specimen adequacy [facility] - Comment: Satisfactory for evaluation. Endocervical/transformation zone component present. Age and/or menstrual status not provided Pap, general categorization CANCELED [facility] [place] Comment:Result canceled by t olayinka ancillary HPV interp [facility] [place] Comment:Negative for intraep ithelial lesion or malignancy. Infection: CANCELED [facility] [place] Comment:Result canceled by t olayinka ancillary COMMENTS [facility] - Comment: This Pap test has been evaluated with computer assisted technology. Real Estate Closing Coordinator [facility] - Comment: AMW, CT(ASCP) CT screening location: [place] [address] [place] [address] Review junior software developer CANCELED [facility] - Comment:Result canceled by t olayinka ancillary Pathologist [...] High Risk E6/E7 Not Detected Not Detected [facility] [place] Comment: This test was performed using the APTIMA HPV Assay ([employer] This assay detects E6/E7 viral messenger RNA (mRNA) from 14 high-risk HPV types (16,18,31,33,35,39,45,51,52,56,58,59,66,68). The analytical performance characteristics of this assay have been determined by [facility]. The modifications have not been cleared or approved by the FDA. This assay has been validated pursuant to the CLIA regulations and is used for clinical purposes. Endocervical/vag inal 05/03/2018 10:56 AM CDT 05/04/2018 6:19 AM CDT Narrative Resulting Agency Comment Performing Organization Information: Site ID: [place] Name: [facility] Address: [address] [place] [address] Director: Jamie Morales D.O., MPH Site ID: [place] Name: [facility] Address: [address] [place] [address] Director: Arnold Diaz us Abdirahman Kirkpatrick MD LAB PATHOLOGY ORDERABLES F inal Result [facility] [place] [facility] [place], [place] from Last 3 Months or Most Recently Relevant to Health Maintenance Insurance [employer] [facility] CHOICE [facility] H[facility]PPO Address: [address] [address] [place] [address] Advance Directives For more information, please contact: [phone] Documents on File Type Date Recorded Patient Sales Officer Expl anation ADVANCE DIRECTIVE 04/01/2023 11:13 AM POWER OF BRISTLE MACHINE OPERATOR-MEDICAL ADVANCE DIRECTIVE 03/15/2023 11:28 AM RUPAL R OF BRISTLE MACHINE OPERATOR-MEDICAL * Full Code (Latest Code Status [...] 1:56 PM 10/27/2018 6:42 PM Care Teams Pan Devulcanizer Relationship Specialty Start Date End Date John Lomax MD PCP - General 08/20/16 Atilio Carl MD Referring Physician Cardiology 09/02/18 Eunice Soto MD Surgeon Cardiothoracic Surgery 03/29/23 Sae Hawkins MD PhD Consulting Physician Cardiology 03/29/23
[2025-05-26 11:56] VITALS: BP 106/90; PULSE 72; RESP 18; TEMP 36.4; O2SAT 97
[2025-05-26] MEDS: IPRATROPIUM 0.5 MG/ALBUTEROL SULFATE 2.5 MG AMPUL.NEB 3 ML INHALATION (12:14)
--- NOTE | 2025-05-26 12:42 | ED.URI ---
HPI - URI/Sore Throat General Chief Complaint: Upper Respiratory Infection Stated Complaint: COUGH,SINUS, WEAKNESS,HEADACHE Time Seen by Provider: 05/26/25 12:00 Source: patient Mode of arrival: ambulatory Limitations: no limitations History of Present Illness HPI Narrative: 49 yo F with hx of asthma, chronic bronchitis, pneumonia presents with c/o cough for 6 days. SOB with exertion. Out of albuterol inhaler. Taking OTC decongestant with no relief. AFebrile. Current everyday smoker. All systems reviewed and negative except as noted above. Related Data Home Medications ?Medication ?Instructions ?Recorded ?Confirmed ?Last Taken ?Type cetirizine 10 mg tablet (Zyrtec) 10 mg PO DAILY 08/03/22 07/07/24 Unknown History furosemide 80 mg tablet 80 mg PO BID 06/18/23 07/07/24 Unknown History metoprolol tartrate 50 mg tablet 50 mg PO BID 06/18/23 07/07/24 Unknown History Allergies Allergy/AdvReac Type Severity Reaction Status Date / Time levofloxacin Allergy Severe Chest Pain Verified 05/26/25 11:57 Cephalosporins AdvReac Intermediate Nausea and Verified 05/26/25 11:57 Vomiting Penicillins AdvReac Intermediate Gastrointestinal Verified 05/26/25 11:57 Upset PMFSH Past Medical History Medical History Intraductal papilloma of right breast excision Sinusitis Pneumonia Bronchitis Asthma Surgical History Surgical History H/O left knee surgery Hx of right knee surgery History of aortic valve replacement Previous section Family History Family History Mother Family history non-contributory Social History Social History Smoking packs per day: 1 Smoking cigarettes per day: 20.0 Years smoked: 10 Smoking pack-years: 10.00 Smoking status: Current every day smoker Alcohol intake: current Alcohol use details: social Substance use type: does not use Gender identity (if verbalized by the patient): Female Comments At time of signature, agree with nursing past medical, surgical, social and family history. There is no relevant family history pertinent to the presenting complaint. Exam Narrative: GENERAL: This is a well-nourished, well-developed patient, Ill-appearing but no acute distress HEAD: normocephalic, atraumatic. EYES: PERRL. Sclera clear/white. Vision is grossly intact. EARS: External ears normal, auditory canals clear and without drainage, TMs normal without perforation. Hearing grossly intact. NOSE: External nose normal with Congestion, postnasal drainage THROAT: Mucous membranes moist, posterior pharynx clear. NECK: Neck supple, non-tender without lymphadenopathy, masses or thyromegaly. CARDIOVASCULAR: Regular rate and rhythm without murmurs, gallops, or rubs. RESPIRATORY: coarse throughout all lung hope. Breath sounds equal bilaterally. No wheezes, rales, or rhonchi. GASTROINTESTINAL: Abdomen soft, non-tender, nondistended. Bowel sounds are active. No hepato-splenomegaly, or palpable masses. No guarding. SKIN: warm, Dry, intact with no suspicious lesions or rash, good texture and turgor. NEURO: awake, alert, and oriented to person, place and time. There were no obvious focal neurologic abnormalities. EXTREMITIES: No joint tenderness, effusion, or edema noted. Course Course Level of Care: Express Care Visit Vital Signs Vital signs: Vital Signs Temperature 36.4 C 05/26/25 11:56 Pulse Rate 72 05/26/25 11:56 Respiratory Rate 18 05/26/25 11:56 Blood Pressure 106/90 05/26/25 11:56 Pulse Oximetry 97 05/26/25 11:56 Oxygen Delivery Room Air 05/26/25 11:56 Temperature 36.4 C 05/26/25 11:56 Pulse Rate 72 05/26/25 11:56 Respiratory Rate 18 05/26/25 11:56 Blood Pressure 106/90 05/26/25 11:56 Pulse Oximetry 97 05/26/25 11:56 Oxygen Delivery Room Air 05/26/25 11:56 reviewed MDM - URI/Sore Throat MDM Narrative Medical decision making narrative: will treat patient with antibiotic and prednisone for acute bronchitis. Refilled albuterol inhaler. patient reports improvement in cough and shortness of breath after DuoNeb. No respiratory distress noted. Differential Diagnosis Differential diagnosis: Likely upper respiratory infection, sinusitis, viral infection, bronchitis and other ( Pneumonia) Discharge Plan Discharge Clinical Impression: Acute bronchitis Qualifiers: Bronchitis organism: unspecified organism Qualified Code(s): J20.9 - Acute bronchitis, unspecified Patient Disposition: Home Condition: Stable Instructions: Antibiotic Form, Acute Bronchitis (ED) Additional Instructions: The x-ray of your chest was unchanged from your chest x-ray in October. Take medications as prescribed. Purchase [id number] Mucinex and take as directed on packaging. Drink at least 64 oz water a day. See your doctor if not improving. If you are having difficulty breathing go to the ER. Patient Language: Turkmen Prescriptions: New doxycycline hyclate 100 mg capsule 100 mg PO BID 7 Days Qty: 14 0RF benzonatate 200 mg capsule 200 mg PO TID PRN (Reason: cough) Qty: 20 0RF prednisone 20 mg tablet 40 mg PO DAILY 5 Days Qty: 10 0RF albuterol sulfate 90 mcg/actuation HFA aerosol inhaler 2 puff inhalation Q4-6H PRN (Reason: shortness of breath or wheezing) Qty: 8.5 0RF No Action albuterol sulfate 2.5 mg /3 mL (0.083 %) solution for nebulization 2.5 mg inhalation Q4H PRN (Reason: shortness of breath or wheezing) Qty: 75 0RF cetirizine [Zyrtec] 10 mg Tablet 10 mg PO DAILY furosemide 80 mg tablet 80 mg PO BID metoprolol tartrate 50 mg tablet 50 mg PO BID Follow-up/Referrals: Monie,John Diaz MD [Primary Care Provider] - Time of Disposition: 12:49
== END 2025-05-26 12:52 | disposition home or self-care (01) ==
PROVIDERS: Emergency Provider Nurse Practitioner Family; PCP Internal Medicine
DX: J20.9 Acute bronchitis, unspecified (principal); F17.210 Nicotine dependence, cigarettes, uncomplicated; J45.909 Unspecified asthma, uncomplicated; Z95.2 Presence of prosthetic heart valve
CPT/HCPCS: 71046; 94640; 99213; G0463; J7512